=== PATIENT | male | born 1940 | race Caucasian/White ===

== ENCOUNTER → 2016-04-28 | Outpatient (CLI) | payer MEDICARE, BC ==
[2016-04-28 10:17] LABS: Blood Urea Nitrogen 31 mg/dL (9-20); Non-African American GFR(MDRD) 54 (>60 ml/min/1.73 sqM)
--- NOTE | 2016-04-28 11:31 | CT ---
EXAMINATION TYPE: CT angio abdomen DATE OF EXAM: 04/28/2016 11:13 AM COMPARISON: CTA abdominal aorta June 03, 2015 HISTORY: AAA CT DLP: 2549.9 mGycm, Automated Exposure Control for Dose Reduction was Utilized. CONTRAST: CT scan of the abdomen and pelvis is performed without oral and without and with IV Contrast, patient injected with 100 mL of Visipaque 320. Aneurysm protocol with Three-D reconstructed images created o n independent workstation and reviewed. FINDINGS: VASCULAR: There is redemonstration of aortobiiliac stent graft beginning at level of SMA extending in to the distal common iliac arteries bilaterally. [place] aneurysm to the infrarenal abdominal aorta re demonstrated measuring 5.3 x 5.4 cm on axial image 45 felt stable in size versus prior exam appearing 5.1 x 5.4 cm on image 25. Length of the aneurysm is approximately 7.5 cm. No iliac extension is note d. Post contrast images show patency of the stent graft without suspicious enhancement outside the st ent graft to suggest endoleak. There is moderate to severe calcified plaque in the internal/external iliac artery branches. No significant stenosis is seen in the external iliac artery branches through the common femoral as well as proximal superficial and deep femoral arteries with moderate calcified plaque extending through these levels slightly more prominent in the right groin. There is patent aimee iac access, SMA, and bilateral single renal arteries which have fairly moderate to severe calcified p laque redemonstrated without definitive significant stenosis seen near origins. Patent RAEANN is not isaac ntified. LUNG BASES: Some linear scarring in the left lung base remains present. There is stable 8 x 6 mm nodu le in the right lung base on axial image 12. LIVER/GB: No significant abnormality is appreciated. PANCREAS: No significant abnormality is seen. SPLEEN: Single calcification in spleen on series 3 image 15 is stable and presumed benign ADRENALS: No significant abnormality is seen. KIDNEYS: A few simple appearing cysts are redemonstrated scattered throughout both kidneys. BOWEL: No significant abnormality is seen. PROSTATE/SEMINAL VESICLES: Prostate is surgically absent with surgical clips LYMPH NODES: No greater than 1cm abdominal or pelvic lymph nodes are appreciated. OSSEOUS STRUCTURES: Extensive postsurgical change in the lumbar spine is redemonstrated. Multilevel p osterior fusion hardware as well as laminectomy defects are again seen. Dystrophic calcifications hernandez r ischial tuberosities are redemonstrated on axial image 59. OTHER: And coils ventral wall hernia repair surgery overlying the abdomen. No suspicious recurrent he rnia is seen. Surgical clips in the right groin are redemonstrated. IMPRESSION: Redemonstration of aortobiiliac stent graft that remains patent. [place] aneurysm size is felt stable. No CT evidence for endoleak.
== END | disposition home or self-care (01) ==
LOC: RADCTMAIN 09:34
PROVIDERS: ATTEND Thoracic Surgery (Cardiothoracic Vascular Surgery)
DX: I71.4 Abdominal aortic aneurysm, without rupture (principal)
CPT/HCPCS: 82565; 84520; 74175; 36415; Q9967

== ENCOUNTER → 2016-10-04 | Outpatient (CLI) | payer MEDICARE, BC ==
--- NOTE | 2016-10-04 10:56 | XR ---
EXAMINATION TYPE: XR chest 2V DATE OF EXAM: 10/04/2016 COMPARISON: Prior chest x-ray 07/11/2015 HISTORY: Rib pain, upper back and chest pain TECHNIQUE: Frontal and lateral views of the chest are obtained. FINDINGS: There is a tortuous dense aorta as on prior exam, there are atherosclerotic calcifications present. Patient is rotated. Heart size is stable, patient is rotated. No evident airspace disease, pneumothorax, or pleural effusion. Pulmonary vascularity and savita are stable. Postop changes are note d to the lumbar spine. Spondylosis noted in the thoracic spine. There may be a spinal curvature. Ribs show a stable appearance. IMPRESSION: No acute cardiopulmonary process. The patient is rotated. There is likely spinal curvatu re.
--- NOTE | 2016-10-04 12:02 | XR ---
Bilateral hips HISTORY: Bilateral hip pain 2 views of both hips submitted. No comparisons Calcification is present within the insertion of the gluteal tendon on the greater trochanter on the right. Injection granuloma are present. Marginal spurring and joint space loss is present bilaterally . Alignment is maintained. Multiple surgical clips are present, there are extensive vascular calcific ations. Bone mineralization is mildly reduced. IMPRESSION: Findings suggest osteoarthritis, there may be a component of femoral acetabular impingeme nt. Possible calcific tendinitis, consider trochanteric bursitis. Osteopenia is suspected.
== END | disposition home or self-care (01) ==
LOC: RADXRMAIN 07:50
PROVIDERS: ATTEND Family Medicine
DX: R07.81 Pleurodynia (principal); M25.551 Pain in right hip; M25.552 Pain in left hip
CPT/HCPCS: 71020; 73521

== ENCOUNTER 2017-01-10 06:05 | Day surgery (SDC) | payer MEDICARE, BC ==
[2017-01-05 09:16] VITALS: BMI 73.3
[~2017-01-10 06:05] MED LIST: LACTATED RINGERS 1,000 ML IV SCH
[2017-01-10 06:32] VITALS: RESP 16; TEMP 97.9
[2017-01-10] MEDS ORDERED: LIDOCAINE 1% 20 ML VIAL (10MG/ML) FOR IV START INTRADERMA ONE (06:39)
[2017-01-10 06:40] LABS: Glucose,Whole Blood 135 mg/dL (75-99)
--- NOTE | 2017-01-10 07:17 | P.PCN ---
Date of Procedure: 01/10/17 Preoperative Diagnosis: Bilateral sacroiliitis Postoperative Diagnosis: Same as above Procedure(s) Performed: Bilateral sacroiliac joint steroid injection under fluoroscopic guidance Anesthesia: MAC (Conscious sedation with IV fentanyl and Versed) Surgeon: Kaylee Rios Pathology: none sent Condition: stable Disposition: PACU Description of Procedure: the patient was seen and identified in the preoperative holding area, risks and benefits and alternative of the procedure and possible complications discussed with the patient, patient signed the consent. an IV was started, and vital signs were monitored and were stable throughout the procedure, patient was placed in the prone position or table and the lumbosacral area was prepped and draped with a sterile fashion, vital signs were closely monitored during the procedure.The right sacroiliac joint was identified on the AP view of fluoroscopy then the C-arm was tilted to the left oblique position to superimpose the anterior and posterior joint lines on each other and to have a unified joint line with the target point at the inferior one third of this line. I used 22-gauge 3-1/2 inch Quincke spinal needle for this procedure and after getting into the sacroiliac joint I injected 20 mg of Kenalog +2.5 MLS of Marcaine 0.5%. The same procedure was repeated on the left side by tilting the C-arm to the right oblique position this time. At the target point was also at the inferior one third of this unified joint line. Using a 22-gauge 3-1/2 inch Quincke spinal needle I injected 20 mg of Kenalog plus 2.5 MLS of Marcaine 0.5% . Patient tolerated the procedure well without any complication, The patient returned to supine position after the back was cleaned and a Band- Aid applied, the patient transported to recovery room in stable condition and he was monitored for 30 minutes before he was discharged home and then patient was reexamined before going home and patient was discharged in stable condition and patient will follow up with the pain clinic in a few weeks
[2017-01-10] MEDS ORDERED: IV FLUID CONTINUATION 1,000 ML IV ONE (07:27)
[2017-01-10 07:45] VITALS: BP 105/70; PULSE 73
--- NOTE | 2017-01-10 08:47 | FL ---
EXAMINATION TYPE: FL guided pain mgmt statistic DATE OF EXAM: 01/10/2017 HISTORY: Flouroscopy time 7 seconds of fluoroscopy provided. IMPRESSION: 1. Fluoroscopy time.
== END 2017-01-10 08:19 | disposition home or self-care (01) ==
LOC: ORPAIN 06:05
PROVIDERS: ATTEND Anesthesiology
DX: M46.1 Sacroiliitis, not elsewhere classified (principal); I10 Essential (primary) hypertension; E11.9 Type 2 diabetes mellitus without complications; C61 Malignant neoplasm of prostate; Z86.73 Personal history of transient ischemic attack (TIA), and cerebral infarction without residual deficits
CPT/HCPCS: G0260; J2250; J3301; J3010

== ENCOUNTER → 2017-03-01 | Outpatient (CLI) | payer MEDICARE, BC ==
--- NOTE | 2017-03-01 14:46 | P.PN ---
Progress Note - Text Progress Note Date: 03/01/17 Patient returns for followup for chronic back pain with radiation to LLE > RLE. Patient recently underwent SIJ injections x 2with good relief on right side but still has pain when standing for long periods or lying on his left side Patient does not take any regular medications for pain (only rare tramadol). Today, pt denies new-onset weakness, bowel/bladder incontinence, or any other signs or symptoms of cauda equina syndrome. There are no signs of acute intoxication, and no indications of medication diversion or overuse. In addition to above, 13-point review of systems is also negative for chest pain , shortness of breath, changes in vision, changes in hearing, new onset weakness , abdominal pain, diarrhea, extreme fatigue, malaise, fever, skin changes, homicidal or suicidal ideation, or bowel or bladder incontinence. Vital Signs: Reviewed in EMR Gen: WDWN, AAOx3, NAD HEENT: NCAT, EOMI, hearing grossly normal Pulm: resp unlabored Abd: soft, NT, ND Neck: supple, trachea midline ROM in flexion lumbar spine: reduced ROM in extension lumbar spine: reduced Lumbar paravertebral tenderness: + Facet loading: + bilateral SI joint tenderness: + R > L Manuel's test: + R > L Neuro: CN II-XII grossly intact, muscle strength lower extremities PRESERVED Imaging: Reviewed in EMR Assessment: 1. SIJ dysfunction 2. lumbar spondylosis 3. chronic pain syndrome Plan: 1. Explanation: Opioid and psychological risk scores were reviewed. Diagnoses , prognoses, and multiple treatment options including but not limited to physical therapy, interventional therapies, adjuvant medical therapies, narcotic medication therapies, and surgery were discussed with the patient and all questions were answered to the patient's satisfaction. 2. Opioid agreement: no opioids prescribed today 3. Counseling: The patient was counseled extensively on BODY MASS INDEX, EXERCISE. Specifically, the patient was instructed regarding the importance of smoking cessation, weight control, and exercise in the context of both chronic pain and overall health. 4. Procedures: bilateral SIJ injection #3, consider RFA in future (patient is concerned about insurance coverage) 5. Consultations: None 6. Investigations: None 7. Medications: none prescribed 8. Disposition: f/u for procedure as scheduled PQRS measures: 1-Patient's medications are documented in the chart. 2-Tobacco use is negative 3-Patient has not had a pneumococcal vaccine. 4-Advanced care planning discussed, patient unable to give. 5-Opioid contract NOT signed with the patient. 6-Pain positive, follow-up visit or procedure scheduled 7-Patient's blood pressure measured and documented, and patient will follow up with the primary care due to hypertension. 8-Patient's weight was measured, and body mass index ABOVE the normal limits, and counseling was done. Patient instructed to follow up with PCP. 9-Patient WAS NOT identified as an unhealthy alcohol user.
== END | disposition home or self-care (01) ==
LOC: PNWHC3 14:07
PROVIDERS: ATTEND Anesthesiology
DX: G89.4 Chronic pain syndrome (principal); M47.816 Spondylosis without myelopathy or radiculopathy, lumbar region; M53.3 Sacrococcygeal disorders, not elsewhere classified
CPT/HCPCS: 99211

== ENCOUNTER 2017-03-29 05:54 | Day surgery (SDC) | payer MEDICARE, BC ==
[2017-03-22 11:08] VITALS: BMI 34.3
[2017-03-29 07:23] VITALS: PULSE 81; RESP 16; TEMP 96.7
[2017-03-29] MEDS ORDERED: LACTATED RINGERS 1,000 ML IV ONE (07:33)
[2017-03-29 07:34] LABS: Glucose,Whole Blood 133 mg/dL (75-99)
[2017-03-29] MEDS ORDERED: LIDOCAINE 1% 20 ML VIAL (10MG/ML) FOR IV START INTRADERMA ONE (07:34)
[2017-03-29] MEDS ORDERED: LACTATED RINGERS 1,000 ML IV SCH (07:45)
--- NOTE | 2017-03-29 08:04 | P.PCN ---
Date of Procedure: 03/29/17 Surgeon: Hugo Allan Pathology: none sent Condition: stable Disposition: PACU Description of Procedure: PREOPERATIVE DIAGNOSIS: 1-Bilateral sacroiliitis. 2 Lumbar DDD POSTOPERATIVE DIAGNOSIS:. 1-Bilateral sacroiliitis. 2 Lumbar DDD PROCEDURES: Bilateral Sacroiliac joint steroid injection with fluoroscopic guidance ANESTHESIA: Local with 1% lidocaine; conscious sedation EBL: Minimal. PROCEDURE INDICATIONS: This patient with a history of low back pain secondary to sacroiliitis and lumbar DDD unresponsive to conservative management. No use of blood thinners except ASA 325 last used yesterday; third SIJ injection today after relief for 1 month from previous two procedures. PROCEDURE DESCRIPTION: The patient was seen and identified in the preoperative area. Risks, benefits, complications, and alternatives were discussed with the patient (including but not limited to incomplete pain relief, bleeding, infection, nerve damage, and allergies to medications), the patient agreed to proceed with the procedure and signed the consent after all questions were answered. Patient was taken to the OR and time out was completed to verify proper patient , position, laterality of pain, and allergies. Pt was placed in the prone position and a pillow was placed under the abdomen to reduce lumbar lordosis. The lumbosacral area was prepped and draped in the usual sterile fashion. Critical pause was taken. Vital signs were closely monitored during the procedure. The fluoroscopic camera was placed in contralateral oblique view and right sacroiliiac joint lower pole was identified. After local infiltration with 1% lidocaine 2 ml, Subsequently, a 22-gauge 3.5 inch spinal needle was introduced into the posteroinferior aspect of the right sacroiliac joint under direct fluoroscopic visualization. Subsequently, 3 ml of a solution of a total of 6 ml solution containing total 5 mL of 0.5% preservative-free bupivicaine mixed with 40 mg of Kenalog was injected after negative aspiration for CSF, blood, and air and negative for paresthesia. The entire procedure was repeated on the left side as above. Needle was withdrawn intact. Skin was cleansed, and bandages were applied. COMPLICATIONS: None. COMMENTS: DISPOSITION / PLANS: The patient was placed in a supine position and transferred to the recovery area in a stable condition for observation and was discharged from the recovery room after meeting discharge criteria. Home discharge instructions given to the patient by the staff. The patient was reexamined prior to discharge. The patient will schedule a follow up in clinic in 4-6 weeks.
[2017-03-29] MEDS ORDERED: IV FLUID CONTINUATION 1,000 ML IV ONE (08:12)
[2017-03-29 08:29] VITALS: BP 158/74
--- NOTE | 2017-03-29 08:37 | FL ---
Fluoroscopy HISTORY: Pain 9 seconds fluoroscopy time supplied to the referring clinician. 2 intraoperative C-arm images docume nt the procedure. See dictated report from anesthesia.
== END 2017-03-29 08:48 | disposition home or self-care (01) ==
LOC: ORPAIN 05:54
PROVIDERS: ATTEND Anesthesiology
DX: M46.1 Sacroiliitis, not elsewhere classified (principal); M51.16 Intervertebral disc disorders with radiculopathy, lumbar region; Z86.73 Personal history of transient ischemic attack (TIA), and cerebral infarction without residual deficits; G89.4 Chronic pain syndrome
CPT/HCPCS: J2250; J1030; Q9965; J3010; G0260

== ENCOUNTER → 2017-04-14 | Outpatient (CLI) | payer MEDICARE, BC ==
[2017-04-14 14:33] VITALS: BP 113/68; PULSE 88; RESP 16
--- NOTE | 2017-04-14 17:53 | P.PN ---
Subjective Progress Note Date: 04/14/17 This is [age] years old male with chronic history of severe low back pain, he is diagnosed with bilateral sacroiliitis, and lumbar degenerative disc disease, patient had a history of lumbar laminectomy surgery several years ago, recently we have done bilateral sacroiliac joint steroid injections 2, and he reported that he had 0 benefit after the injection, and he is here today to discuss the results of the procedures , he denies any motor or sensory deficit he denies any fever or night sweats and there is no change in the bowel movement or urination, his VAS is 4-6/10 and increases with activity Objective - Vital Signs Vital signs: Vital Signs Temp Pulse 88 04/14/17 14:24 Resp 16 04/14/17 14:24 BP 113/68 04/14/17 14:24 Pulse Ox Intake & Output 04/13/17 04/14/17 04/14/17 18:59 06:59 18:59 Weight 92.533 kg - Exam Physical Examinations : 1-Constitutiona : Cooperative , not in acute distress . 2-HEENT : nech ; supple , no Lymphadenopathy , normal thyroid size . eyes : no ptosis , no icterus, no photophobia . ENT : normal of hearing , normal oropharynx , no Thrush . 3- Respiratory : Chest clear to auscultations Bilaterally , no wheezing , no Rhonchi . 4- Cardiovascular : regular rate and rhythem , S1 , S2 , no S3 , no S4. 5- Gastrointestinal : abdomen soft no tenderness , bowel sounds positive all four quadrents , no organomegally . 6- Genitourinary : Defferred . 7- neurologic : Cranial nerve II to XII intact , no focal neurological deffecit . 8-psychatric : alert , oriented X 3 , appropriate affect , intact judgment and insight . 9-Lymphatic : no Lymphadenopathy . 10- musculoskeltal : , Lumber spine = normal moter stegnth lower extremities ,thigh and legs .5/5 deep tendon reflexes : normal Knee Jerk , normal ankle Jerk . lumber facet Loading Test positive strait leg raising test positive at 30 degree Right , positve at 30 degree Left Fabere test positive Right and positive Left Sever tenderness over the Sacroiliac joint on the Right , and Left side Assessment and Plan Plan: Assessment and plan=1-bilateral sacroiliitis . 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 3-lumbar spondylosis. Patient had no benefit from the sacroiliac joint steroid injections, he will not be a good candidate to have radiofrequency ablation of the sacroiliac joint , discussed with the patient the option of doing a caudal epidural steroid injection with lysis of epidural adhesions, versus medication management, patient preferred to try medication management, prescription for Mobic 7.5 mg twice a day, and Ultram 50 mg daily when necessary, Time with Patient: Less than 30
== END | disposition home or self-care (01) ==
LOC: PNWHC3 13:06
PROVIDERS: ATTEND Specialist
DX: G89.29 Other chronic pain (principal); M54.5 Low back pain; M96.1 Postlaminectomy syndrome, not elsewhere classified; M51.36 Other intervertebral disc degeneration, lumbar region; M47.816 Spondylosis without myelopathy or radiculopathy, lumbar region; M46.1 Sacroiliitis, not elsewhere classified; Z79.891 Long term (current) use of opiate analgesic; Z79.1 Long term (current) use of non-steroidal anti-inflammatories (NSAID)
CPT/HCPCS: 99211

== ENCOUNTER → 2017-05-12 | Outpatient (CLI) | payer MEDICARE, BC ==
[2017-05-12 13:22] VITALS: BP 127/77; PULSE 84; RESP 16; TEMP 97.8
--- NOTE | 2017-05-12 13:48 | P.PN ---
Progress Note - Text Progress Note Date: 05/12/17 Patient returns for followup for chronic back pain with radiation to LLE > RLE. Patient has undergone numerous interventions with our facility and has no more than one week's relief from all of them. He was prescribed tramadol and meloxicam at last visit but does not know if they are helping at all, although tramadol did help him in the past. Today, pt denies new-onset weakness, bowel/ bladder incontinence, or any other signs or symptoms of cauda equina syndrome. There are no signs of acute intoxication, and no indications of medication diversion or overuse. In addition to above, 13-point review of systems is also negative for chest pain , shortness of breath, changes in vision, changes in hearing, new onset weakness , abdominal pain, diarrhea, extreme fatigue, malaise, fever, skin changes, homicidal or suicidal ideation, or bowel or bladder incontinence. Vital Signs: Reviewed in EMR Gen: WDWN, AAOx3, NAD HEENT: NCAT, EOMI, hearing grossly normal Pulm: resp unlabored Abd: soft, NT, ND Neck: supple, trachea midline ROM in flexion lumbar spine: reduced ROM in extension lumbar spine: reduced Lumbar paravertebral tenderness: + Facet loading: + bilateral SI joint tenderness: + R > L Manuel's test: + R > L Neuro: CN II-XII grossly intact, muscle strength lower extremities PRESERVED Imaging: Reviewed in EMR Assessment: 1. SIJ dysfunction 2. lumbar spondylosis 3. chronic pain syndrome Plan: 1. Explanation: Opioid and psychological risk scores were reviewed. Diagnoses , prognoses, and multiple treatment options including but not limited to physical therapy, interventional therapies, adjuvant medical therapies, narcotic medication therapies, and surgery were discussed with the patient and all questions were answered to the patient's satisfaction. 2. Opioid agreement: no opioids prescribed today 3. Counseling: The patient was counseled extensively on BODY MASS INDEX, EXERCISE. Specifically, the patient was instructed regarding the importance of smoking cessation, weight control, and exercise in the context of both chronic pain and overall health. 4. Procedures: none 5. Consultations: None 6. Investigations: None 7. Medications: none prescribed 8. Disposition: Patient has had limited relief with all procedures thus far and does not want any stronger opioids. He will return as needed.
== END | disposition home or self-care (01) ==
LOC: PNWHC3 12:40
PROVIDERS: ATTEND Anesthesiology
DX: G89.4 Chronic pain syndrome (principal); M47.816 Spondylosis without myelopathy or radiculopathy, lumbar region; M53.3 Sacrococcygeal disorders, not elsewhere classified; Z79.891 Long term (current) use of opiate analgesic; Z79.1 Long term (current) use of non-steroidal anti-inflammatories (NSAID)
CPT/HCPCS: 99211

== ENCOUNTER → 2017-05-25 | Outpatient (CLI) | payer MEDICARE, BC ==
--- NOTE | 2017-05-26 06:06 | CT ---
EXAMINATION TYPE: CT ChestAbdPelvis wo con DATE OF EXAM: 05/25/2017 COMPARISON: CT chest August 07, 2014. CTA abdomen November 08, 2016. HISTORY: AB pain, hx prostate cancer CT DLP: 1629 mGycm. Automated Exposure Control for Dose Reduction was Utilized. TECHNIQUE: CT scan of the thorax, abdomen and pelvis is performed with oral but without IV contrast due to dimin ished renal function. FINDINGS: Within limitations of noncontrast study, following observations are made. LUNGS: There is stable 8 x 5 mm right basilar nodule axial image 51. There is some scattered linear s carring and/or atelectasis in both bases near diaphragm. There is redemonstration of azygos lobe/fiss ure. There is mild underlying emphysematous change. No new suspicious nodule or mass is present. No p leural effusion or pneumothorax is seen bilaterally. MEDIASTINUM: There are no greater than 1 cm hilar or mediastinal lymph nodes. No cardiomegaly or pe ricardial effusion is seen. OTHER: No additional significant abnormality is seen. LIVER/GB: Gallbladder is not visualized and presumed surgically absent. PANCREAS: No significant abnormality is seen. SPLEEN: Few calcifications inferiorly and spleen are redemonstrated. ADRENALS: No significant abnormality is seen. KIDNEYS: Superior to right kidney there is stable 2.7 cm hyperdense lesion possible exophytic protein aceous cyst. There is larger 3.9 cm simple appearing cyst medially mid pole level right kidney. BOWEL: Oral contrast reaches level of cecum. There is no suspicious small or large bowel dilatation GENITAL ORGANS: Prostate gland is suspected surgically absent with pelvic clips noted. LYMPH NODES: No greater than 1cm abdominal or pelvic lymph nodes are appreciated. OSSEOUS STRUCTURES: S-shaped scoliosis is present. Postsurgical change in the lumbar spine is redemon strated with fusion hardware upper and lower lumbar levels. There is posterior decompression redemons trated. OTHER: Numerous surgical coils from ventral wall hernia repair surgery are redemonstrated. No recurre nt hernia is seen. There is aortobiiliac stent graft redemonstrated throughout aneurysm measuring 5.3 x 5.2 cm axial benjamin ge 84 not significantly changed from prior. IMPRESSION: No significant new or acute finding is seen to account for patient's symptoms of acute ab dominal pain. No new suspicious mass or adenopathy is seen to suggest metastatic malignancy.
== END | disposition home or self-care (01) ==
LOC: RADCTMAIN 09:48
PROVIDERS: ATTEND Family Medicine
DX: R10.9 Unspecified abdominal pain (principal); Z85.46 Personal history of malignant neoplasm of prostate
CPT/HCPCS: 71250; 74176; 82565; 84520

== ENCOUNTER → 2017-08-26 | Outpatient (CLI) | payer MEDICARE, BC ==
--- NOTE | 2017-08-26 13:19 | XR ---
EXAMINATION TYPE: XR chest 2V DATE OF EXAM: 08/26/2017 COMPARISON: October 04, 2016 HISTORY: Shortness of breath TECHNIQUE: Frontal and lateral views of the chest are obtained. FINDINGS: Scattered senescent parenchymal changes noted. Hyperinflation compatible with COPD. There is a new infiltrate identified in the region of the right middle lobe medial segment. No additi onal infiltrates seen at this time. Right upper lobe calcified granulomas. Heart size is stable. Mediastinal structures are stable and grossly unremarkable. No evidence for hilar prominence. Degenerative changes dorsal spine. Segmental sclerosis of the posterior left rib 7. IMPRESSION: 1. There is a new infiltrate identified in the region of the right middle lobe medial segment. No add itional infiltrates seen at this time.
== END | disposition home or self-care (01) ==
LOC: RADXRMAIN 09:32
PROVIDERS: ATTEND Family Medicine
DX: R06.02 Shortness of breath (principal); R91.8 Other nonspecific abnormal finding of lung field
CPT/HCPCS: 71046

== ENCOUNTER 2017-08-29 14:54 | Emergency (ER) | payer MEDICARE, BC ==
[2017-08-29 17:52] LABS: Basophils % (A) 0 %; Eosinophils # (A) 0.1 k/uL (0-0.7); Eosinophils % (A) 1 %; HCT 36.3 % (39.0-53.0); HGB 11.5 gm/dL (13.0-17.5); Lymphocytes # (A) 0.8 k/uL (1.0-4.8); Lymphocytes % (A) 4 %; MCH 30.8 pg (25.0-35.0); MCHC 31.7 g/dL (31.0-37.0); MCV 97.2 fL (80.0-100.0); Mean Platelet Volume 7.2; Monocytes % (A) 5 %; Neutrophils # (A) 17.8 k/uL (1.3-7.7); Neutrophils % (A) 89 %; Platelet Count 515 k/uL (150-450); RBC 3.73 m/uL (4.30-5.90); RDW 13.7 % (11.5-15.5); WBC 20.1 k/uL (3.8-10.6)
[2017-08-29 17:58] LABS: Albumin 3.8 g/dL (3.5-5.0); Calcium 10.6 mg/dL (8.4-10.2); Potassium 5.2 mmol/L (3.5-5.1); Total Bilirubin 0.4 mg/dL (0.2-1.3); Total Protein 6.6 g/dL (6.3-8.2)
[2017-08-29 18:09] LABS: Creatine Kinase 72 U/L (55-170)
[2017-08-29 18:21] LABS: Creatine Kinase MB 1.9 ng/mL (0.0-2.4); Troponin I <0.012 ng/mL (0.000-0.034)
[2017-08-29] MEDS ORDERED: IPRATROPIUM-ALBUTEROL 3 ML NEB INHALATION STA (18:46)
--- NOTE | 2017-08-29 18:49 | ED ---
General Adult HPI - General Chief complaint: Shortness of Breath Stated complaint: Sob Time Seen by Provider: 08/29/17 18:36 Source: patient, family, RN notes reviewed Mode of arrival: wheelchair Limitations: no limitations - History of Present Illness Initial comments: Patient is a pleasant 77-year-old male presenting to the emergency department with difficulty breathing. Symptoms have been present for around a week. Patient did have x-ray done on Tuesday and diagnosed with pneumonia. Patient does have cough. Patient does have dyspnea. Patient also complains of sciatica pain on the left side which is chronic for him. No weakness. Patient also is chronic lower back pain. - Related Data Home Medications Medication Instructions Recorded Confirmed Atenolol [Tenormin] 25 mg PO BID 10/06/13 08/29/17 Benazepril HCl 20 mg PO BID 10/06/13 08/29/17 amLODIPine [Norvasc] 5 mg PO BID 10/06/13 08/29/17 metFORMIN HCL 1,000 mg PO HS 10/06/13 08/29/17 Atorvastatin [Lipitor] 20 mg PO HS 04/15/14 08/29/17 Vitamin B Complex 1 cap PO DAILY 05/02/14 08/29/17 Ascorbic Acid [Vitamin C] 1,000 mg PO DAILY 10/13/15 08/29/17 Cholecalciferol [Vitamin D3] 1,000 unit PO DAILY 10/13/15 08/29/17 Indapamide 2.5 mg PO DAILY 10/13/15 08/29/17 Omeprazole [PriLOSEC] 20 mg PO BID 10/13/15 08/29/17 Ubidecarenone [Co Q-10] 100 mg PO DAILY 10/13/15 08/29/17 Calcitonin Nasal [Fortical 1 spray EA NOSTRIL DAILY 10/22/15 08/29/17 (Miacalcin)] Psyllium Husk [Metamucil] 0.4 gm PO DAILY PRN 03/22/17 08/29/17 Calcium Carbonate [Calcium] 600 mg PO DAILY 08/29/17 08/29/17 Ferrous Sulfate 134mg 134 mg PO DAILY 08/29/17 08/29/17 Glucosam/Angel Luis-Msm1/C/Emeka/Bosw 1 tab PO DAILY 08/29/17 08/29/17 [Kistjspoqwj-Fudiamqrpnn-CZR Tb] Previous Rx's Medication Instructions Recorded Aspirin 325 mg PO DAILY #30 tab 07/15/15 Azithromycin [Zithromax Z-pack] 250 mg PO DIRECTED #6 tab 08/29/17 predniSONE 20 mg PO BID #8 tab 08/29/17 Allergies Allergy/AdvReac Type Severity Reaction Status Date / Time No Known Allergies Allergy Verified 08/29/17 19:19 Review of Systems ROS Statement: Those systems with pertinent positive or pertinent negative responses have been documented in the HPI. ROS Other: All systems not noted in ROS Statement are negative. 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,Hx prostate cancer;Chronic back pain; Chronic anemia, peptic ulcer disease, CVA in June 2015 and MRI of the brain showed increased signal within the cortex of the right frontal and frontoparietal lobes consistent with infarcts., aortic aneurysm with previous insertion of an aortic stent, carotid artery stenosis, History of Any Multi-Drug Resistant Organisms: MRSA Date of last positivie culture/infection: 2011 MDRO Source:: abdominal incision Past Surgical History: Back Surgery, Bladder Surgery, Cholecystectomy, Hernia Repair, Prostate Surgery Additional Past Surgical History / Comment(s): Prostatectomy, bladder suspension surgery, and the vascular stenting of an aortic aneurysm, hemorrhoidectomy, bilateral cataract surgery, back surgery X4 (516 LAMENECTOMY) Past Anesthesia/Blood Transfusion Reactions: No Reported Reaction Past Psychological History: No Psychological Hx Reported Smoking Status: Former smoker Past Alcohol Use History: None Reported Past Drug Use History: None Reported - Past Family History Brother(s) Family Medical History: CVA/TIA Son(s) Family Medical History: No Reported History Father Family Medical History: Cancer Additional Family Medical History / Comment(s): BRAIN Mother Family Medical History: Cancer Additional Family Medical History / Comment(s): "BLOOD CANCER" General Exam Limitations: no limitations General appearance: alert, in no apparent distress Head exam: Present: atraumatic Eye exam: Present: normal appearance, PERRL ENT exam: Present: normal oropharynx Neck exam: Present: normal inspection Respiratory exam: Present: wheezes, decreased breath sounds Cardiovascular Exam: Present: regular rate, normal rhythm GI/Abdominal exam: Present: soft. Absent: tenderness Extremities exam: Present: normal inspection. Absent: pedal edema, calf tenderness Neurological exam: Present: alert. Absent: motor sensory deficit Expanded Sensory exam: Lower Extremity Light Touch: Normal Motor strength exam: RLE: 5, LLE: 5 Psychiatric exam: Present: normal affect, normal mood Skin exam: Present: normal color Course Vital Signs 08/29/17 08/29/17 08/29/17 16:06 18:40 19:54 Temperature 98.4 F Pulse Rate 89 88 Respiratory 18 24 Rate Blood Pressure 123/87 O2 Sat by Pulse 95 Oximetry 08/29/17 08/29/17 19:55 20:20 Temperature 98.4 F Pulse Rate 87 88 Respiratory 18 Rate Blood Pressure 165/79 O2 Sat by Pulse 95 Oximetry Medical Decision Making - Medical Decision Making Patient reevaluated and resting comfortably in bed. Lung sounds have improved and now only mild wheezing. Patient denies any dyspnea at this time. Patient does request discharge. Patient still does have some of his chronic back pain present. Patient states she does not believe he was placed on steroids or antibiotics. was called who agrees with this. Patient states he did receive 2 shots and his doctor's office recently. Patient is unclear if they were antibiotic or steroid shots. Patient will be prescribed both antibiotics and steroids at this time and recommended close follow-up with primary care physician. Patient advised to return if worsening symptoms - Lab Data Result diagrams: 08/29/17 17:32 08/29/17 17:32 Lab Results 08/29/17 08/29/17 08/29/17 Range/Units 17:32 17:32 17:32 WBC 20.1 H (3.8-10.6) k/uL RBC 3.73 L (4.30-5.90) m/uL Hgb 11.5 L (13.0-17.5) gm/dL Hct 36.3 L (39.0-53.0) % MCV 97.2 (80.0-100.0) fL MCH 30.8 (25.0-35.0) pg MCHC 31.7 (31.0-37.0) g/dL RDW 13.7 (11.5-15.5) % Plt Count 515 H (150-450) k/uL Neutrophils % 89 % Lymphocytes % 4 % Monocytes % 5 % Eosinophils % 1 % Basophils % 0 % Neutrophils # 17.8 H (1.3-7.7) k/uL Lymphocytes # 0.8 L (1.0-4.8) k/uL Monocytes # 1.0 (0-1.0) k/uL Eosinophils # 0.1 (0-0.7) k/uL Basophils # 0.0 (0-0.2) k/uL Sodium 141 (137-145) mmol/L Potassium 5.2 H (3.5-5.1) mmol/L Chloride 110 H (98-107) mmol/L Carbon Dioxide 16 L (22-30) mmol/L Anion Gap 15 mmol/L BUN 55 H (9-20) mg/dL Creatinine 1.50 H (0.66-1.25) mg/dL Est GFR (CKD-EPI)AfAm 52 (>60 ml/min/1.73 sqM) Est GFR (CKD-EPI)NonAf 45 (>60 ml/min/1.73 sqM) Glucose 150 H (74-99) mg/dL Plasma Lactic Acid Mika (0.7-2.0) mmol/L Calcium 10.6 H (8.4-10.2) mg/dL Total Bilirubin 0.4 (0.2-1.3) mg/dL AST 47 (17-59) U/L ALT 59 (21-72) U/L Alkaline Phosphatase 180 H (38-126) U/L Total Creatine Kinase 72 (55-170) U/L CK-MB (CK-2) 1.9 (0.0-2.4) ng/mL CK-MB (CK-2) Rel Index 2.6 Troponin I <0.012 (0.000-0.034) ng/mL Total Protein 6.6 (6.3-8.2) g/dL Albumin 3.8 (3.5-5.0) g/dL 07/16/18 Range/Units 17:32 WBC (3.8-10.6) k/uL RBC (4.30-5.90) m/uL Hgb (13.0-17.5) gm/dL Hct (39.0-53.0) % MCV (80.0-100.0) fL MCH (25.0-35.0) pg MCHC (31.0-37.0) g/dL RDW (11.5-15.5) % Plt Count (150-450) k/uL Neutrophils % % Lymphocytes % % Monocytes % % Eosinophils % % Basophils % % Neutrophils # (1.3-7.7) k/uL Lymphocytes # (1.0-4.8) k/uL Monocytes # (0-1.0) k/uL Eosinophils # (0-0.7) k/uL Basophils # (0-0.2) k/uL Sodium (137-145) mmol/L Potassium (3.5-5.1) mmol/L Chloride (98-107) mmol/L Carbon Dioxide (22-30) mmol/L Anion Gap mmol/L BUN (9-20) mg/dL Creatinine (0.66-1.25) mg/dL Est GFR (CKD-EPI)AfAm (>60 ml/min/1.73 sqM) Est GFR (CKD-EPI)NonAf (>60 ml/min/1.73 sqM) Glucose (74-99) mg/dL Plasma Lactic Acid Mika 1.0 (0.7-2.0) mmol/L Calcium (8.4-10.2) mg/dL Total Bilirubin (0.2-1.3) mg/dL AST (17-59) U/L ALT (21-72) U/L Alkaline Phosphatase (38-126) U/L Total Creatine Kinase (55-170) U/L CK-MB (CK-2) (0.0-2.4) ng/mL CK-MB (CK-2) Rel Index Troponin I (0.000-0.034) ng/mL Total Protein (6.3-8.2) g/dL Albumin (3.5-5.0) g/dL - Radiology Data Radiology results: image reviewed (Chest x-ray shows no acute process. Improvement of recent infiltrate.) Disposition Clinical Impression: Acute exacerbation of chronic obstructive airways disease Disposition: HOME SELF-CARE Condition: Stable Instructions: COPD (Chronic Obstructive Pulmonary Disease) (ED) Additional Instructions: Please follow-up with primary care physician tomorrow. Consider referral to pain center. Return for fevers, difficulty breathing, worsening or changing symptoms or other concerns. Prescriptions: Azithromycin [Zithromax Z-pack] 250 mg PO DIRECTED #6 tab predniSONE 20 mg PO BID #8 tab Is patient prescribed a controlled substance at d/c from ED?: No Referrals: Yonatan Judge DO [Primary Care Provider] - 1-2 days Time of Disposition: 20:59
[2017-08-29] MEDS ORDERED: MORPHINE SULFATE 2 MG/ML SYRINGE IVP STA (19:23)
--- NOTE | 2017-08-29 19:30 | XR ---
EXAMINATION TYPE: XR chest 2V DATE OF EXAM: 08/29/2017 COMPARISON: 08/26/2017 HISTORY: Cough TECHNIQUE: Frontal and lateral views of the chest are obtained. FINDINGS: Heart size is normal. Lungs are clear of consolidation. Thoracic aorta is atheromatous. Th ere is evidence of aneurysm of the aortic arch. There is no pleural effusion. There is mild pleural t hickening at the right lung apex. IMPRESSION: No active cardiopulmonary disease. There is significant clearing of the right lower lobe and right middle lobe pulmonary infiltrate compared to last exam.
[2017-08-29 19:56] VITALS: RESP 18
[2017-08-29] MEDS ORDERED: HYDROcodone/APAP 5-325MG 1 EACH TAB PO STA (20:54)
[2017-08-29 21:42] VITALS: BP 142/71; PULSE 104; TEMP 97.7
== END 2017-08-29 21:46 | disposition home or self-care (01) ==
LOC: EC 14:54
DX: J44.1 Chronic obstructive pulmonary disease with (acute) exacerbation (principal); G89.29 Other chronic pain; M54.42 Lumbago with sciatica, left side; E11.9 Type 2 diabetes mellitus without complications; K21.9 Gastro-esophageal reflux disease without esophagitis; E78.5 Hyperlipidemia, unspecified; I10 Essential (primary) hypertension; M19.90 Unspecified osteoarthritis, unspecified site; D64.9 Anemia, unspecified; Z85.46 Personal history of malignant neoplasm of prostate; Z86.14 Personal history of Methicillin resistant Staphylococcus aureus infection; Z86.73 Personal history of transient ischemic attack (TIA), and cerebral infarction without residual deficits; Z87.11 Personal history of peptic ulcer disease; Z79.84 Long term (current) use of oral hypoglycemic drugs; Z79.899 Other long term (current) drug therapy; Z87.891 Personal history of nicotine dependence
CPT/HCPCS: 99285; 96374; 36415; 94640; 93005; 80053; 82550; 82553; 83605; 84484; 85025; 87040; 71046; J2270

== ENCOUNTER → 2017-09-22 | Outpatient (CLI) | payer MEDICARE, BC ==
[2017-09-22 11:58] VITALS: BP 129/79; PULSE 81; RESP 16
--- NOTE | 2017-09-22 12:43 | P.PN ---
Progress Note - Text Progress Note Date: 09/07/17 Progress Note - Text Progress Note Date: 05/12/17 Patient returns for followup for chronic back pain with radiation to LLE > RLE. Patient has undergone numerous interventions with our facility and has no more than one week's relief from all of them. He was prescribed tramadol and meloxicam at last visit but does not know if they are helping at all, although tramadol did help him in the past. Today, pt denies new-onset weakness, bowel/ bladder incontinence, or any other signs or symptoms of cauda equina syndrome. There are no signs of acute intoxication, and no indications of medication diversion or overuse. In addition to above, 13-point review of systems is also negative for chest pain , shortness of breath, changes in vision, changes in hearing, new onset weakness , abdominal pain, diarrhea, extreme fatigue, malaise, fever, skin changes, homicidal or suicidal ideation, or bowel or bladder incontinence. Vital Signs: Reviewed in EMR Gen: WDWN, AAOx3, NAD HEENT: NCAT, EOMI, hearing grossly normal Pulm: resp unlabored Abd: soft, NT, ND Neck: supple, trachea midline ROM in flexion lumbar spine: reduced ROM in extension lumbar spine: reduced Lumbar paravertebral tenderness: + Facet loading: + bilateral SI joint tenderness: + R > L Manuel's test: + R > L Neuro: CN II-XII grossly intact, muscle strength lower extremities PRESERVED Imaging: Reviewed in EMR Assessment: 1. SIJ dysfunction 2. lumbar spondylosis 3. chronic pain syndrome Plan: 1. Explanation: Opioid and psychological risk scores were reviewed. Diagnoses , prognoses, and multiple treatment options including but not limited to physical therapy, interventional therapies, adjuvant medical therapies, narcotic medication therapies, and surgery were discussed with the patient and all questions were answered to the patient's satisfaction. 2. Opioid agreement: no opioids prescribed today 3. Counseling: The patient was counseled extensively on BODY MASS INDEX, EXERCISE. Specifically, the patient was instructed regarding the importance of smoking cessation, weight control, and exercise in the context of both chronic pain and overall health. 4. Procedures: none 5. Consultations: None 6. Investigations: None 7. Medications: none prescribed 8. Disposition: Patient has had limited relief with all procedures thus far and does not want any stronger opioids. He will return as needed.
--- NOTE | 2017-09-22 12:57 | P.PN ---
Progress Note - Text Progress Note Date: 09/22/17 Progress Note - Text Progress Note Date: 09/22/2017 Patient returns for followup for chronic back pain with radiation to LLE > RLE. Patient has had a previous lumbar fusion, and is having multiple SI joint injections. He's had relief from SI joint injections however for very short duration of less than 24 hour. He states that the relief that he gets is greater than 80%. I discussed with him doing a left radio frequency ablation of L5, S1 to S3 medial branches. I discussed the risks and benefits with the patient and the patient is agreeable to proceeding. Patient states that because of his left SI joint pain he is unable to perform typical activities of daily living, he is unable to grocery shop, unable to clean his home, and requires excessive assistance because of pain. Patient is adamant that he does not want any opiates, or opiate derivatives. He has tried tramadol in the past and does not want to continue. Today, pt denies new-onset weakness, bowel/ bladder incontinence, or any other signs or symptoms of cauda equina syndrome. In addition to above, 13-point review of systems is also negative for chest pain , shortness of breath, changes in vision, changes in hearing, new onset weakness , abdominal pain, diarrhea, extreme fatigue, malaise, fever, skin changes, homicidal or suicidal ideation, or bowel or bladder incontinence. Vital Signs: Reviewed in EMR Gen: WDWN, AAOx3, NAD HEENT: NCAT, EOMI, hearing grossly normal Pulm: resp unlabored Abd: soft, NT, ND Neck: supple, trachea midline ROM in flexion lumbar spine: reduced ROM in extension lumbar spine: reduced Lumbar paravertebral tenderness: + Facet loading: + bilateral SI joint tenderness: + L>R Manuel's test: + L > R Neuro: CN II-XII grossly intact, muscle strength lower extremities PRESERVED Imaging: Reviewed in EMR Assessment: 1. Lumbosacral spondylosis 2. SIJ dysfunction 3. lumbar spondylosis 4. chronic pain syndrome Plan: 1. Explanation: Opioid and psychological risk scores were reviewed. Diagnoses , prognoses, and multiple treatment options including but not limited to physical therapy, interventional therapies, adjuvant medical therapies, narcotic medication therapies, and surgery were discussed with the patient and all questions were answered to the patient's satisfaction. 2. Opioid agreement: no opioids prescribed today 3. Counseling: The patient was counseled extensively on BODY MASS INDEX, EXERCISE. Specifically, the patient was instructed regarding the importance of smoking cessation, weight control, and exercise in the context of both chronic pain and overall health. 4. Procedures: Left radio frequency ablation of L5, S1 to S3 medial branches 5. Consultations: None 6. Investigations: None 7. Medications: none prescribed 8. Disposition: Procedure at next available date.
== END | disposition home or self-care (01) ==
LOC: PNWHC3 09-07 14:25
PROVIDERS: ATTEND Anesthesiology
DX: G89.4 Chronic pain syndrome (principal); M47.817 Spondylosis without myelopathy or radiculopathy, lumbosacral region; M53.3 Sacrococcygeal disorders, not elsewhere classified
CPT/HCPCS: 99211

== ENCOUNTER → 2017-11-15 | Outpatient (CLI) | payer MEDICARE, BC ==
[2017-11-15 14:47] VITALS: BP 135/69; PULSE 77; RESP 18
--- NOTE | 2017-11-15 15:33 | P.PAINPG ---
Subjective Progress Note Date: 11/15/17 Patient returns for followup for chronic back pain with radiation to lower extremities, Patient has had a previous lumbar fusion, and is having multiple SI joint injections. He's had relief from SI joint injections , recently with done Radifrequency ablation of Left L5, S1 to S3 medial branches. She reported that the radiofrequency of the sacroiliac joint helped his back pain but he continued to have lower extremity pain, spatially when he changed position , he is unable to perform typical activities of daily living, he is unable to grocery shop, unable to clean his home, and requires excessive assistance because of pain. Patient is adamant that he does not want any opiates, or opiate derivatives. He has tried tramadol in the past and does not want to continue. Today, pt had bladder incontinence,( after radiation therapy of the prostate ) In addition to above, 13-point review of systems is also negative for chest pain , shortness of breath, changes in vision, changes in hearing, new onset weakness , abdominal pain, diarrhea, extreme fatigue, malaise, fever, skin changes, homicidal or suicidal ideation, or bowel or bladder incontinence. Vital Signs: Reviewed in EMR Gen: WDWN, AAOx3, NAD HEENT: NCAT, EOMI, hearing grossly normal Pulm: resp unlabored Abd: soft, NT, ND Neck: supple, trachea midline ROM in flexion lumbar spine: reduced ROM in extension lumbar spine: reduced Lumbar paravertebral tenderness: + Facet loading: + bilateral SI joint tenderness: + L>R Manuel's test: + L > R Neuro: CN II-XII grossly intact, muscle strength lower extremities PRESERVED Imaging: Reviewed in EMR Assessment: Failed back surgery syndrome lumbar area , sacroiliac joint dysfunction, sacroiliitis , lumbar spondylosis Plan: 1. Explanation: Opioid and psychological risk scores were reviewed. Diagnoses , prognoses, and multiple treatment options including but not limited to physical therapy, interventional therapies, adjuvant medical therapies, narcotic medication therapies, and surgery were discussed with the patient and all questions were answered to the patient's satisfaction. 2. Opioid agreement: no opioids prescribed today 3. Counseling: The patient was counseled extensively on BODY MASS INDEX, EXERCISE. Specifically, the patient was instructed regarding the importance of smoking cessation, weight control, and exercise in the context of both chronic pain and overall health. 4. Procedures: Patient was referred to have computed tomography scan of the lumbar spine with and without contrast, in the future patient could be a candidate to have caudal epidural steroid injection with lysis of epidural adhesions 5. Consultations: None 7. Medications: none prescribed Objective - Vital Signs Vital signs: Vital Signs Temp Pulse 77 11/15/17 14:39 Resp 18 11/15/17 14:39 BP 135/69 11/15/17 14:39 Pulse Ox 97 11/15/17 14:39 Intake & Output 11/14/17 11/15/17 11/15/17 18:59 06:59 18:59 Weight 92.986 kg PQRS Measure Charge Sheet Measure #130: Documentation of Current Meds in Medical Chart: Patient's medications documented in chart Measure #226: Tobacco Use: Screen & Cessation Intervention: Pt not a tobacco user Measure #111: Pneumonia Vaccination: Pneumococcal vaccine administered or previously received Measure #47: Advance Care Plan: Advance care planning discussed & documented, pt chose/unable to give Measure #412: Opioid Treatment Agreement: No documentation of signed opioid treatment agreement Measure #408: Opioid Therapy Follow-up Evaluation: Patient had NO f/u eval minimum every 3 months during opioid therapy Measure #317: Preventitive Care & Scrn High Bld Press & F/U: Normal blood pressure, f/u not required Measure #128: Body Mass Index (BMI) Screening & Follow-up: BMI documented ABOVE normal parameters - f/u documented Measure #131: Pain Assessment & Follow-up: Pain positive & plan documented, Follow-up scheduled Measure #431: Unhealthy Alcohol Use Preventative Care & Scrn: Patient not identified as an unhealthy alcohol user PQRS Narrative: Smoking Status Former smoker Narcotic Agreement Date Signed 04/14/17 Blood Pressure 135/69 Pain Intensity [Lower Back] 1 Scale Used Numeric (1 - 10) Hx Alcohol Use (MH) No Home Medications: Ambulatory Orders Atenolol [Tenormin] 25 mg PO BID 10/06/13 Benazepril HCl 20 mg PO BID 10/06/13 amLODIPine [Norvasc] 5 mg PO BID 10/06/13 metFORMIN HCL 1,000 mg PO AC-SUPPER 10/06/13 Vitamin B Complex 1 cap PO DAILY 05/02/14 Aspirin 325 mg PO DAILY #30 tab 07/15/15 Ascorbic Acid [Vitamin C] 1,000 mg PO DAILY 10/13/15 Cholecalciferol [Vitamin D3] 1,000 unit PO DAILY 10/13/15 Indapamide 2.5 mg PO DAILY 10/13/15 Omeprazole [PriLOSEC] 20 mg PO BID 10/13/15 Ubidecarenone [Co Q-10] 100 mg PO DAILY 10/13/15 Calcitonin Nasal [Fortical (Miacalcin)] 1 spray EA NOSTRIL DAILY 10/22/15 Psyllium Husk [Metamucil] 0.4 gm PO DAILY PRN 03/22/17 Ferrous Sulfate 134mg 134 mg PO DAILY 08/29/17 Atorvastatin [Lipitor] 20 mg PO HS 09/28/17 Controlled Substance Measures - Controlled Substance Measures Is patient prescribed a controlled substance at discharge?: No When asked, does pt state using other controlled substances?: No If prescribed controlled substance>3 days was MAPS reviewed?: No If Rx opioid, was Start Talking consent form obtained?: No If opioid is for acute pain is fill amount 7 days or less?: No Was information provided regarding opioid addiction?: No
== END | disposition home or self-care (01) ==
LOC: PNWHC3 13:12
PROVIDERS: ATTEND Specialist
DX: M47.816 Spondylosis without myelopathy or radiculopathy, lumbar region (principal); M96.1 Postlaminectomy syndrome, not elsewhere classified; M53.3 Sacrococcygeal disorders, not elsewhere classified; M46.1 Sacroiliitis, not elsewhere classified; Z87.891 Personal history of nicotine dependence; Z79.84 Long term (current) use of oral hypoglycemic drugs; Z79.82 Long term (current) use of aspirin; Z79.899 Other long term (current) drug therapy
CPT/HCPCS: 99211

== ENCOUNTER → 2017-11-30 | Outpatient (CLI) | payer MEDICARE, BC ==
--- NOTE | 2017-11-30 11:41 | CT ---
EXAMINATION TYPE: CT lumbar spine wo/w con DATE OF EXAM: 11/30/2017 COMPARISON: 07/12/2015 HISTORY: 77-year-old male with failed Back surgery. LT sciatic pain. TECHNIQUE: Contiguous axial scanning of the lumbar spine performed without and with IV Contrast, ailin ent injected with 80 mL of Isovue 300. Coronal/sagittal reconstructions performed. CT DLP: 3733 mGycm Automated exposure control for dose reduction was used. FINDINGS: High density exophytic lesion upper pole right kidney measures 2.9 cm with around 65 Hounsfield unit attenuation on both pre and postcontrast images suggesting a hemorrhagic cyst. 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 Aortobiiliac endovascular stent g raft is present from the level of the celiac axis. [place] aneurysm sac measures approximately 5.3 cm likely relatively similar to 07/04/2015 where it was incompletely imaged on the sagittal series. Posterior lumbar fusion changes are present with transpedicular screws at L1-L2 and also at L5-S1. [place] t[place] osseous fusion extends from L1 through S1 levels. Corresponding laminectomies. Fixed grade 1 an terolisthesis at L4-L5. Interval resolution of the previous posterior midline fluid collections. The presence of metal hardware artifact limits assessment. This seems to be broad-based discussed by complex at L5-S1 possibly abutting the traversing right S1 nerve root as well as the exiting right L5 nerve root. Moderate bilateral neural foraminal stenosis at this level is relatively similar. No evident spinal canal compromise. On the left, there is similar moderate neural foraminal stenosis secondary to bony hypertrophy at L1- L2 and mild at L2-L3, L3-L4, and L4-L5. On the right, similar moderate to severe neural foraminal stenosis at L1-L2 and mild to moderate at L 4-L5. Mild additional levels. Vertebral body heights are preserved. Remaining alignment is maintained. IMPRESSION: 1. STATUS POST L1-S1 LATERAL OSSEOUS FUSION. POSTERIOR FUSION HARDWARE REMAINS AT L1-L2 AND L5-S1. TH ERE ARE CORRESPONDING LAMINECTOMIES WITH INTERVAL RESOLUTION OF THE PREVIOUS POSTERIOR MIDLINE FLUID COLLECTIONS. 2. NO EVIDENT SPINAL CANAL COMPROMISE. THERE IS STABLE FIXED GRADE 1 ANTEROLISTHESIS AT THE FUSED L4- L5 LEVEL. 3. BULGING DISC AT L5-S1 MAY ABUT THE TRAVERSING RIGHT S1 NERVE ROOT WELL THE EXITING RIGHT L5 NERVE ROOT. 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 4. ADDITIONAL VARIABLE BONY NEUROFORAMINAL NARROWING OUTLINED ABOVE, RELATIVELY SIMILAR TO 2016.
== END | disposition home or self-care (01) ==
LOC: RADCTMAIN 09:46
PROVIDERS: ATTEND Specialist
DX: M99.73 Connective tissue and disc stenosis of intervertebral foramina of lumbar region (principal); M43.16 Spondylolisthesis, lumbar region; M51.27 Other intervertebral disc displacement, lumbosacral region; Z98.1 Arthrodesis status
CPT/HCPCS: 82565; 84520; 72133; 36415; Q9967

== ENCOUNTER → 2017-12-08 | Outpatient (CLI) | payer MEDICARE, BC ==
[2017-12-08 12:15] VITALS: BP 137/85; PULSE 81; RESP 18
--- NOTE | 2017-12-08 12:55 | P.PN ---
Subjective Progress Note Date: 12/08/17 Principal diagnosis: Failed back surgery syndrome This is a 77-year-old gentleman with history of lower back pain status post multiple back surgeries. The patient had sacroiliac joint steroid injection which gave him good relief of pain for about 2 weeks and then we did RFA on the left sacroiliac joint. He'll see if his pain on the right side of his lower back. Today, pt denies new-onset weakness, bowel/bladder incontinence, or any other signs or symptoms of cauda equina syndrome. There are no signs of acute intoxication, and no indications of medication diversion or overuse. In addition to above, 13-point review of systems is also negative for chest pain , shortness of breath, changes in vision, changes in hearing, new onset weakness , abdominal pain, diarrhea, extreme fatigue, malaise, fever, skin changes, homicidal or suicidal ideation, or bowel or bladder incontinence. 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 Explanation: Opioid and psychological risk scores were reviewed. Diagnoses , prognoses, and multiple treatment options including but not limited to physical therapy, interventional therapies, adjuvant medical therapies, narcotic medication therapies, and surgery were discussed with the patient and all questions were answered to the patient's satisfaction. 2. Opioid agreement: Signed with the patient and the patient is warned not to use opioids while driving or before driving and not to combine opioids with benzodiazepines or alcohol. 3. Counseling: The patient was counseled extensively on SMOKING CESSATION, BODY MASS INDEX, EXERCISE. Specifically, the patient was instructed regarding the importance of smoking cessation, obesity, and exercise in the context of both chronic pain and overall health. 4. Procedures: Scheduled for right sacroiliac joint RFA(L5 dorsal ramus and S1- S2 and S3 lateral branches). 5. Consultations: None 6. Investigations: None 7. Medications: None 8. Disposition: Return to the above-mentioned procedure as soon as possible 9. Maps were reviewed and were appropriate. Objective - Vital Signs Vital signs: Vital Signs Temp Pulse 81 12/08/17 12:08 Resp 18 12/08/17 12:08 BP 137/85 12/08/17 12:08 Pulse Ox 98 12/08/17 12:08
== END | disposition home or self-care (01) ==
LOC: PNWHC3 11:37
PROVIDERS: ATTEND Anesthesiology
DX: M96.1 Postlaminectomy syndrome, not elsewhere classified (principal); M53.88 Other specified dorsopathies, sacral and sacrococcygeal region; Z98.890 Other specified postprocedural states
CPT/HCPCS: 99211

== ENCOUNTER → 2017-12-13 | Outpatient (CLI) | payer MEDICARE, BC | END | disposition home or self-care (01) | LOC: LABWHC1 09:27 | PROVIDERS: ATTEND Urology | DX: C61 Malignant neoplasm of prostate (principal) | CPT/HCPCS: 36415; 84153 ==

== ENCOUNTER 2018-01-08 14:41 | Inpatient (IN) | payer MEDICARE, BC ==
[2018-01-08] MEDS ORDERED: MORPHINE SULFATE 4 MG/ML SYRINGE IV STA ×2 (15:28→17:52)
[2018-01-08 15:57] LABS: Albumin 4.3 g/dL (3.5-5.0); Basophils % (A) 0 %; Calcium 10.1 mg/dL (8.4-10.2); Eosinophils % (A) 0 %; HGB 12.2 gm/dL (13.0-17.5); Lymphocytes # (A) 0.8 k/uL (1.0-4.8); Lymphocytes % (A) 5 %; MCH 31.5 pg (25.0-35.0); MCHC 32.2 g/dL (31.0-37.0); MCV 97.9 fL (80.0-100.0); Mean Platelet Volume 7.5; Monocytes # (A) 0.7 k/uL (0-1.0); Monocytes % (A) 5 %; Neutrophils # (A) 12.8 k/uL (1.3-7.7); Neutrophils % (A) 88 %; Platelet Count 333 k/uL (150-450); Potassium 5.6 mmol/L (3.5-5.1); RBC 3.88 m/uL (4.30-5.90); Total Bilirubin 0.6 mg/dL (0.2-1.3); Total Protein 7.3 g/dL (6.3-8.2); WBC 14.5 k/uL (3.8-10.6)
[2018-01-08] MEDS ORDERED: SODIUM CHLORIDE 0.9% 1,000 ML IV STA ×2 (16:08→16:09)
[2018-01-08 16:28] LABS: Appearance,Urine Turbid (Clear); Bilirubin,Urine Negative (Negative); Blood,Urine Large (Negative); Color,Urine Red; Glucose,Urine (UA) Negative (Negative); Ketones,Urine 1+ (Negative); Leukocyte Esterase,Urine Large (Negative); Nitrite,Urine Positive (Negative); Protein,Urine 2+ (Negative); RBC,Urine >182 /hpf (0-5); Specific Gravity,Urine 1.017 (1.001-1.035); Urobilinogen,Urine <2.0 mg/dL (<2.0)
--- NOTE | 2018-01-08 17:08 | XR ---
EXAMINATION TYPE: XR KUB DATE OF EXAM: 01/08/2018 4:54 PM CLINICAL HISTORY: Abdominal pain and pressure with inability to urinate. TECHNIQUE: Single upright image of the abdomen is obtained. COMPARISON: 10/06/2013. FINDINGS: Scattered gas is seen in non-distended small bowel loops. Gas and fecal material is seen in non-distended colon. There is no visceromegaly, pneumoperitoneum, or abnormal calcification apprecia loreto. The lung bases are clear and the osseous structures are intact. There are extensive postsurgical changes of the abdomen and spine as well as of the aorta. Calcific atheromatous changes are seen of the abdominal aorta. There is diffuse osseous demineralization. IMPRESSION: Nonobstructive bowel gas pattern. Postsurgical changes of the abdomen, aorta and spine.
--- NOTE | 2018-01-08 17:33 | CT ---
EXAMINATION TYPE: CT abdomen pelvis wo con DATE OF EXAM: 01/08/2018 COMPARISON: 05/25/2017 and 05/29/2012 HISTORY: Urinary retention. CT DLP: 864.1 mGycm Automated exposure control for dose reduction was used. TECHNIQUE: Helical acquisition of images was performed from the lung bases through the pelvis. FINDINGS: Motion artifact limits the examination. LUNG BASES: Subpleural deposition of fat is seen on the left. LIVER/GB: No significant abnormality is appreciated. Again gallbladder is not seen and presumed to be surgically absent. PANCREAS: No significant abnormality is seen. SPLEEN: Extremely limited secondary to motion artifact. ADRENALS: Is very slight nodularity of the mary of the right adrenal gland with Hounsfield unit most compatible with a lipid rich adenoma, benign. KIDNEYS: There is a 2.9 cm slightly enlarged right solid renal mass emanating from the superior pole in comparison to the exam of 05/25/2017. Inferior to this within the midpole there is a similar appear ing slightly high density possibly complex cystic right renal lesion on image 57. A fluid attenuated cystic right renal lesion as on image 54 measuring 3.8 cm. On the left there is an upper pole renal c yst measuring 1.5 cm. FREE AIR: No free air is visualized ADENOPATHY: No greater than 1 cm short axis lymph node is seen within the abdomen or pelvis REPRODUCTIVE ORGANS: Prostate gland appears surgically absent URINARY BLADDER: Incompletely evaluated due to the presence of a Villalobos catheter decompressing the ur inary bladder OSSEOUS STRUCTURES: Postsurgical changes of the lumbar spine are present. Degenerative changes of th e thoracolumbar spine are also seen. BOWEL: The large bowel is collapsed distally but appears unremarkable without surrounding fat strand ing. No dilated small bowel is seen OTHER: Postsurgical changes of the abdominal wall are noted. There is an infrarenal abdominal aortic aneurysm as seen on the prior that when measured at similar l ocation measures 5.6 x 5.5 cm, increased from the prior of 5.2 x 5.3 cm. 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 There is an aortobiiliac endograft present unchanged in position from the prior IMPRESSION: 1. URINARY BLADDER IS INCOMPLETELY ASSESSED IT IS COLLAPSED DUE TO PLACEMENT OF A VILLALOBOS CATHETER. 2. ENLARGING INFRARENAL ABDOMINAL AORTIC ANEURYSM WITH AORTOBIILIAC ENDOGRAFT. NO SURROUNDING FAT STR ANDING TO OR FLUID TO SUGGEST RUPTURE. TYPE V ENDOLEAK SHOULD BE SUSPECTED AND FOLLOW-UP WITH VASCULA R SURGERY IS RECOMMENDED. 3. ALTHOUGH THE RIGHT SUPERIOR POLE RENAL LESION APPEARS SOLID AND HOUNSFIELD UNIT MEASUREMENTS APPEA RS TO BE PRESENT BACK TO 05/29/2012 AND THEREFORE COULD RELATE TO A RENAL CYST WITH INTERNAL HEMORRHAG E AND DEBRIS. ULTRASOUND IS RECOMMENDED TO ENSURE INCREASED THROUGH TRANSMISSION AND NO INTERNAL VASC ULARITY.
[2018-01-08] MEDS ORDERED: LEVOFLOXACIN 500MG-D5W PMX 500 MG in DEXTROSE/WATER 1 100ML.BAG IVPB STA (18:04)
[2018-01-08] MEDS ORDERED: NALOXONE 0.4 MG/ML 1 ML VIAL IV PRN (19:24)
[2018-01-08] MEDS: HYDROmorphone 1 MG/ML 1 ML SYRINGE IVP PRN (20:05)
--- NOTE | 2018-01-08 20:24 | ED ---
General Adult HPI - General Chief complaint: Urogenital Stated complaint: cannot urinate Source: patient Mode of arrival: wheelchair Limitations: no limitations - Related Data Home Medications Medication Instructions Recorded Confirmed amLODIPine [Norvasc] 5 mg PO BID 10/06/13 01/08/18 metFORMIN HCL 1,000 mg PO AC-SUPPER 10/06/13 01/08/18 Vitamin B Complex 1 cap PO DAILY 05/02/14 01/08/18 Ascorbic Acid [Vitamin C] 1,000 mg PO DAILY 10/13/15 01/08/18 Cholecalciferol [Vitamin D3] 1,000 unit PO DAILY 10/13/15 01/08/18 Omeprazole [PriLOSEC] 20 mg PO BID 10/13/15 01/08/18 Ubidecarenone [Co Q-10] 100 mg PO DAILY 10/13/15 01/08/18 Calcitonin Nasal [Fortical 1 spray EA NOSTRIL DAILY 10/22/15 01/08/18 (Miacalcin)] Psyllium Husk [Metamucil] 0.4 gm PO DAILY PRN 03/22/17 01/08/18 Ferrous Sulfate 134mg 134 mg PO DAILY 08/29/17 01/08/18 Atorvastatin [Lipitor] 20 mg PO HS 09/28/17 01/08/18 Glucosam/Angel Luis-Msm1/C/Emeka/Bosw 3 tab PO DAILY 12/23/17 01/08/18 [Glucosamine-Chondroitin Tablet] Previous Rx's Medication Instructions Recorded Aspirin 325 mg PO DAILY #30 tab 07/15/15 Atenolol [Tenormin] 50 mg PO BID #60 tab 01/11/18 Cephalexin [Keflex] 500 mg PO Q8HR #12 cap 01/11/18 Allergies Allergy/AdvReac Type Severity Reaction Status Date / Time No Known Allergies Allergy Verified 01/13/18 15:03 Review of Systems ROS Statement: Those systems with pertinent positive or pertinent negative responses have been documented in the HPI. ROS Other: All systems not noted in ROS Statement are negative. 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,Hx prostate cancer;Chronic back pain; Chronic anemia, peptic ulcer disease, CVA in June 2015 and MRI of the brain showed increased signal within the cortex of the right frontal and frontoparietal lobes consistent with infarcts., aortic aneurysm with previous insertion of an aortic stent, carotid artery stenosis, History of Any Multi-Drug Resistant Organisms: MRSA Date of last positivie culture/infection: 2011 MDRO Source:: abdominal incision Past Surgical History: Back Surgery, Bladder Surgery, Cholecystectomy, Hernia Repair, Prostate Surgery Additional Past Surgical History / Comment(s): Prostatectomy, bladder suspension surgery, and the vascular stenting of an aortic aneurysm, hemorrhoidectomy, bilateral cataract surgery, back surgery X4 (16 LAMENECTOMY) Past Anesthesia/Blood Transfusion Reactions: No Reported Reaction Past Psychological History: No Psychological Hx Reported Smoking Status: Former smoker Past Alcohol Use History: None Reported Past Drug Use History: None Reported - Past Family History Brother(s) Family Medical History: CVA/TIA Son(s) Family Medical History: No Reported History Father Family Medical History: Cancer Additional Family Medical History / Comment(s): BRAIN Mother Family Medical History: Cancer Additional Family Medical History / Comment(s): "BLOOD CANCER" General Exam - General Exam Comments Initial Comments: General: The patient is awake and alert, patient presented emergency room complaining of hematuria but no significant discomfort. History of bladder pathology and prostate cancer per patient. Vital signs per nurse's notes. Eye: Pupils are equal, round and reactive to light, extra-ocular movements are intact ; Ears, nose, mouth and throat: There are moist mucous membranes Neck: The neck is supple, Cardiovascular: No complaint of chest pain. Respiratory: Lungs are clear to auscultation, Gastrointestinal: Mild suprapubic discomfort. Patient has an indwelling Hernandez catheter this time. Back: There is no tenderness to palpation in the midline. There is no obvious deformity. No rashes noted. Musculoskeletal: Full range of motion upper and lower extremities Neurological: No complaint of any neuro deficits or weakness.. Skin: Skin is warm and dry and no rashes or lesions are noted. Psychiatric: Cooperative, Limitations: no limitations Course Vital Signs 01/08/18 01/08/18 01/08/18 14:43 15:10 15:11 Temperature 97.8 F Pulse Rate 133 H 98 Pulse Rate [ Pulse Oximetery ] Respiratory 18 18 Rate Blood Pressure 204/104 138/111 Blood Pressure [Right Arm] O2 Sat by Pulse 97 97 Oximetry 01/08/18 01/08/18 01/08/18 17:55 19:27 22:00 Temperature 97.7 F Pulse Rate 110 H 98 78 Pulse Rate [ Pulse Oximetery ] Respiratory 17 18 18 Rate Blood Pressure 130/97 135/95 132/84 Blood Pressure [Right Arm] O2 Sat by Pulse 98 98 98 Oximetry 01/08/18 22:39 Temperature 97.6 F Pulse Rate Pulse Rate [ 127 H Pulse Oximetery ] Respiratory 16 Rate Blood Pressure Blood Pressure 115/72 [Right Arm] O2 Sat by Pulse 97 Oximetry Medical Decision Making - Medical Decision Making Medical decision making; this is a 77-year-old male was called emergency room because of hematuria. Workup shows evidence of white count of 14.5, BUN of 58 creatinine 2.28 and GFR 27. These are numbers worsening were 6 months ago. The patient's urine shows positive leukoesterase and greater than 180 whites and reds. The patient was started on Levaquin. CAT scan was done showing several things per radiologist that will necessitate further evaluation by vascular surgery, Dr. Stewart will be asked to consult. As well as urology. Dr. Rosas notified and will see the patient tomorrow. Dr. Bruce - Lab Data Result diagrams: 01/11/18 07:05 01/11/18 07:05 Lab Results 01/08/18 01/08/18 01/08/18 Range/Units 15:35 15:35 15:35 WBC 14.5 H (3.8-10.6) k/uL RBC 3.88 L (4.30-5.90) m/uL Hgb 12.2 L (13.0-17.5) gm/dL Hct 38.0 L (39.0-53.0) % MCV 97.9 (80.0-100.0) fL MCH 31.5 (25.0-35.0) pg MCHC 32.2 (31.0-37.0) g/dL RDW 13.0 (11.5-15.5) % Plt Count 333 (150-450) k/uL Neutrophils % 88 % Lymphocytes % 5 % Monocytes % 5 % Eosinophils % 0 % Basophils % 0 % Neutrophils # 12.8 H (1.3-7.7) k/uL Lymphocytes # 0.8 L (1.0-4.8) k/uL Monocytes # 0.7 (0-1.0) k/uL Eosinophils # 0.0 (0-0.7) k/uL Basophils # 0.0 (0-0.2) k/uL Sodium 139 (137-145) mmol/L Potassium 5.6 H (3.5-5.1) mmol/L Chloride 108 H (98-107) mmol/L Carbon Dioxide 13 L (22-30) mmol/L Anion Gap 18 mmol/L BUN 58 H (9-20) mg/dL Creatinine 2.28 H (0.66-1.25) mg/dL Est GFR (CKD-EPI)AfAm 31 (>60 ml/min/1.73 sqM) Est GFR (CKD-EPI)NonAf 27 (>60 ml/min/1.73 sqM) Glucose 171 H (74-99) mg/dL Estimated Ave Glu mg/dL 134 Hemoglobin A1c 6.3 H (4.0-6.0) % Calcium 10.1 (8.4-10.2) mg/dL Total Bilirubin 0.6 (0.2-1.3) mg/dL AST 35 (17-59) U/L ALT 31 (21-72) U/L Alkaline Phosphatase 86 (38-126) U/L Total Protein 7.3 (6.3-8.2) g/dL Albumin 4.3 (3.5-5.0) g/dL Urine Color Urine Appearance (Clear) Urine pH (5.0-8.0) Ur Specific [place] (1.001-1.035) Urine Protein (Negative) Urine Glucose (UA) (Negative) Urine Ketones (Negative) Urine Blood (Negative) Urine Nitrite (Negative) Urine Bilirubin (Negative) Urine Urobilinogen (<2.0) mg/dL Ur Leukocyte Esterase (Negative) Urine RBC (0-5) /hpf Urine WBC (0-5) /hpf Urine WBC Clumps (None) /hpf Stool Occult Blood (Negative) 01/08/18 01/08/18 Range/Units 16:01 16:01 WBC (3.8-10.6) k/uL RBC (4.30-5.90) m/uL Hgb (13.0-17.5) gm/dL Hct (39.0-53.0) % MCV (80.0-100.0) fL MCH (25.0-35.0) pg MCHC (31.0-37.0) g/dL RDW (11.5-15.5) % Plt Count (150-450) k/uL Neutrophils % % Lymphocytes % % Monocytes % % Eosinophils % % Basophils % % Neutrophils # (1.3-7.7) k/uL Lymphocytes # (1.0-4.8) k/uL Monocytes # (0-1.0) k/uL Eosinophils # (0-0.7) k/uL Basophils # (0-0.2) k/uL Sodium (137-145) mmol/L Potassium (3.5-5.1) mmol/L Chloride (98-107) mmol/L Carbon Dioxide (22-30) mmol/L Anion Gap mmol/L BUN (9-20) mg/dL Creatinine (0.66-1.25) mg/dL Est GFR (CKD-EPI)AfAm (>60 ml/min/1.73 sqM) Est GFR (CKD-EPI)NonAf (>60 ml/min/1.73 sqM) Glucose (74-99) mg/dL Estimated Ave Glu mg/dL Hemoglobin A1c (4.0-6.0) % Calcium (8.4-10.2) mg/dL Total Bilirubin (0.2-1.3) mg/dL AST (17-59) U/L ALT (21-72) U/L Alkaline Phosphatase (38-126) U/L Total Protein (6.3-8.2) g/dL Albumin (3.5-5.0) g/dL Urine Color Red Urine Appearance Turbid (Clear) Urine pH 6.0 (5.0-8.0) Ur Specific [place] 1.017 (1.001-1.035) Urine Protein 2+ H (Negative) Urine Glucose (UA) Negative (Negative) Urine Ketones 1+ H (Negative) Urine Blood Large H (Negative) Urine Nitrite Positive (Negative) Urine Bilirubin Negative (Negative) Urine Urobilinogen <2.0 (<2.0) mg/dL Ur Leukocyte Esterase Large H (Negative) Urine RBC >182 H (0-5) /hpf Urine WBC >182 H (0-5) /hpf Urine WBC Clumps Many H (None) /hpf Stool Occult Blood Negative (Negative) Disposition Clinical Impression: Hematuria Disposition: ADMITTED IP TO THIS HOSP Condition: Good Is patient prescribed a controlled substance at d/c from ED?: No
[2018-01-08 23:14] VITALS: BMI 35.5
[2018-01-09] MEDS: HYDROmorphone 1 MG/ML 1 ML SYRINGE IVP PRN ×4 (02:49→21:47)
[2018-01-09 07:08] LABS: Glucose,Whole Blood 137 mg/dL (75-99)
[2018-01-09] MEDS: SODIUM CHLORIDE 0.9% 1,000 ML IV SCH ×2 (07:55→20:00)
[2018-01-09] MEDS: INSULIN ASPART 100 UNIT/ML 1 ML 10 ML VIAL SQ SCH ×4 (08:00→20:57)
--- NOTE | 2018-01-09 08:32 | P.GSCN ---
History of Present Illness Consult date: 01/09/18 Reason for Consult: Gross Hematuria Requesting physician: Ray Bey History of present illness: The patient is a 77-year-old white male well known to Dr. Lorenzana. He underwent a radical prostatectomy for prostate cancer (Stage [id number]) in 2003, and received salvage radiation therapy in 2009. He has also been treated with androgen deprivation therapy; he received most recently a 6 month Lupron injection in December 2016. His PSA level was 0.06 in May 2017. The patient is a vague historian. He was admitted overnight after presenting to the emergency room with gross hematuria and difficulty voiding. He experienced right lower back pain, which has resolved. 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,Hx prostate cancer;Chronic back pain; Chronic anemia, peptic ulcer disease, CVA in June 2015 and MRI of the brain showed increased signal within the cortex of the right frontal and frontoparietal lobes consistent with infarcts., aortic aneurysm with previous insertion of an aortic stent, carotid artery stenosis, History of Any Multi-Drug Resistant Organisms: MRSA Year Discovered:: 2011 MDRO Source:: abdominal incision Past Surgical History: Back Surgery, Bladder Surgery, Cholecystectomy, Hernia Repair, Prostate Surgery Additional Past Surgical History / Comment(s): Prostatectomy, bladder suspension surgery, and the vascular stenting of an aortic aneurysm, hemorrhoidectomy, bilateral cataract surgery, back surgery X4 (5-4-16 LAMENECTOMY) Past Anesthesia/Blood Transfusion Reactions: No Reported Reaction Past Psychological History: No Psychological Hx Reported Additional Psychological History / Comment(s): . Smoking Status: Former smoker Past Alcohol Use History: None Reported Additional Past Alcohol Use History / Comment(s): Pt states he started smoking in 7 and quit in 1987. SMOKED 2 PPD. , SMOKED FOR 33 YEARS Past Drug Use History: None Reported - Past Family History Brother(s) Family Medical History: CVA/TIA Son(s) Family Medical History: No Reported History Father Family Medical History: Cancer Additional Family Medical History / Comment(s): BRAIN Mother Family Medical History: Cancer Additional Family Medical History / Comment(s): "BLOOD CANCER" Medications and Allergies Home Medications Medication Instructions Recorded Confirmed Type Atenolol [Tenormin] 25 mg PO BID 10/06/13 01/08/18 History Benazepril HCl 20 mg PO BID 10/06/13 01/08/18 History amLODIPine [Norvasc] 5 mg PO BID 10/06/13 01/08/18 History metFORMIN HCL 1,000 mg PO AC-SUPPER 10/06/13 01/08/18 History Vitamin B Complex 1 cap PO DAILY 05/02/14 01/08/18 History Aspirin 325 mg PO DAILY #30 tab 07/15/15 01/08/18 Rx Ascorbic Acid [Vitamin C] 1,000 mg PO DAILY 10/13/15 01/08/18 History Cholecalciferol [Vitamin D3] 1,000 unit PO DAILY 10/13/15 01/08/18 History Indapamide 2.5 mg PO DAILY 10/13/15 01/08/18 History Omeprazole [PriLOSEC] 20 mg PO BID 10/13/15 01/08/18 History Ubidecarenone [Co Q-10] 100 mg PO DAILY 10/13/15 01/08/18 History Calcitonin Nasal [Fortical 1 spray EA NOSTRIL DAILY 10/22/15 01/08/18 History (Miacalcin)] Psyllium Husk [Metamucil] 0.4 gm PO DAILY PRN 03/22/17 01/08/18 History Ferrous Sulfate 134mg 134 mg PO DAILY 08/29/17 01/08/18 History Atorvastatin [Lipitor] 20 mg PO HS 09/28/17 01/08/18 History Glucosam/Angel Luis-Msm1/C/Emeka/Bosw 3 tab PO DAILY 12/23/17 01/08/18 History [Glucosamine-Chondroitin Tablet] Allergies Allergy/AdvReac Type Severity Reaction Status Date / Time No Known Allergies Allergy Verified 01/08/18 20:16 Surgical - Exam Vital Signs Temp Pulse Resp BP Pulse Ox 97.8 F 133 H 18 204/104 97 01/08/18 14:43 01/08/18 14:43 01/08/18 14:43 01/08/18 14:43 01/08/18 14:43 - General well developed, well nourished, no distress - Respiratory normal respiratory effort - Abdomen Abdomen: soft, non tender, no guarding, no rigid, no rebound - Genitourinary normal penis with no external lesions, testicles non-tender - Psychiatric oriented to time, oriented to person, oriented to place, speech is normal Results - Labs 01/08/18 15:35 01/08/18 15:35 Abnormal Lab Results - Last 24 Hours (Table) 01/08/18 01/08/18 01/08/18 Range/Units 15:35 15:35 16:01 WBC 14.5 H (3.8-10.6) k/uL RBC 3.88 L (4.30-5.90) m/uL Hgb 12.2 L (13.0-17.5) gm/dL Hct 38.0 L (39.0-53.0) % Neutrophils # 12.8 H (1.3-7.7) k/uL Lymphocytes # 0.8 L (1.0-4.8) k/uL Potassium 5.6 H (3.5-5.1) mmol/L Chloride 108 H (98-107) mmol/L Carbon Dioxide 13 L (22-30) mmol/L BUN 58 H (9-20) mg/dL Creatinine 2.28 H (0.66-1.25) mg/dL Glucose 171 H (74-99) mg/dL Urine Protein 2+ H (Negative) Urine Ketones 1+ H (Negative) Urine Blood Large H (Negative) Ur Leukocyte Esterase Large H (Negative) Urine RBC >182 H (0-5) /hpf Urine WBC >182 H (0-5) /hpf Urine WBC Clumps Many H (None) /hpf Microbiology - Last 24 Hours (Table) 01/08/18 16:01 Urine Culture - Preliminary Urine,Voided Diabetes panel 01/08/18 Range/Units 15:35 Sodium 139 (137-145) mmol/L Potassium 5.6 H (3.5-5.1) mmol/L Chloride 108 H (98-107) mmol/L Carbon Dioxide 13 L (22-30) mmol/L BUN 58 H (9-20) mg/dL Creatinine 2.28 H (0.66-1.25) mg/dL Glucose 171 H (74-99) mg/dL Calcium 10.1 (8.4-10.2) mg/dL AST 35 (17-59) U/L ALT 31 (21-72) U/L Alkaline Phosphatase 86 (38-126) U/L Total Protein 7.3 (6.3-8.2) g/dL Albumin 4.3 (3.5-5.0) g/dL Calcium panel 01/08/18 Range/Units 15:35 Calcium 10.1 (8.4-10.2) mg/dL Albumin 4.3 (3.5-5.0) g/dL Pituitary panel 01/08/18 Range/Units 15:35 Sodium 139 (137-145) mmol/L Potassium 5.6 H (3.5-5.1) mmol/L Chloride 108 H (98-107) mmol/L Carbon Dioxide 13 L (22-30) mmol/L BUN 58 H (9-20) mg/dL Creatinine 2.28 H (0.66-1.25) mg/dL Glucose 171 H (74-99) mg/dL Calcium 10.1 (8.4-10.2) mg/dL Adrenal panel 01/08/18 Range/Units 15:35 Sodium 139 (137-145) mmol/L Potassium 5.6 H (3.5-5.1) mmol/L Chloride 108 H (98-107) mmol/L Carbon Dioxide 13 L (22-30) mmol/L BUN 58 H (9-20) mg/dL Creatinine 2.28 H (0.66-1.25) mg/dL Glucose 171 H (74-99) mg/dL Calcium 10.1 (8.4-10.2) mg/dL Total Bilirubin 0.6 (0.2-1.3) mg/dL AST 35 (17-59) U/L ALT 31 (21-72) U/L Alkaline Phosphatase 86 (38-126) U/L Total Protein 7.3 (6.3-8.2) g/dL Albumin 4.3 (3.5-5.0) g/dL - Imaging CT scan - abdomen: report reviewed, image reviewed Assessment and Plan (1) Gross hematuria Current Visit: Yes Status: Acute Code(s): R31.0 - GROSS HEMATURIA SNOMED Code(s): 014114841 (2) Right renal mass Current Visit: Yes Status: Acute Code(s): N28.89 - OTHER SPECIFIED DISORDERS OF KIDNEY AND URETER SNOMED Code(s): 919535658 Plan: The patient has gross hematuria. Computed tomography scan suggests the presence of a 2.9 cm right upper pole solid renal mass. A Hernandez catheter was placed in the emergency room, but this clotted and was subsequently removed. He is now voiding frequently, with postvoid residuals of approximately 160 mL. The computed tomography scan shows poor definition of the bladder because of the indwelling Hernandez catheter, but it does suggest the presence of a small amount of clot or tumor within the bladder. A renal ultrasound will be obtained to better assess the right upper pole renal mass. He is being straight catheterized as needed. If the hematuria fails to improve, he may require Hernandez catheter placement with continuous bladder irrigation. Cystoscopy will ultimately be required to assess his bladder. Time with Patient: Greater than 30
--- NOTE | 2018-01-09 09:10 | US ---
EXAMINATION TYPE: US renals and bladder DATE OF EXAM: 01/09/2018 COMPARISON: NONE CLINICAL HISTORY: renal mass. EXAM MEASUREMENTS: Right Kidney: 10.5 x 4.8 x 4.7 cm Left Kidney: 10.6 x 5.0 x4.9 cm Patient of large body habitus unable to stay up on his side due to pain. Technically difficult. Right Kidney: superior pole cyst measuring 3.0 x 2.3 x 3.1, mid cyst measuring 4.2 x 3.9 x 4.0cm, pos sible visualization of mass measuring 2.3 x. 2.1 x 2.1cm Left Kidney: 2 hyperechoic foci seen measuring 1.) 1.1 x 0.8 x 1.0cm, 1.0 x 0.6 x 0.9cm 2.) cyst deborah suring 1.5 x 1.4 x 1.3cm Bladder: not visualized IMPRESSION: 1. There is a solid-appearing mass within the right kidney corresponding to the abnormality. Recommen d MRI follow-up. 2. Additional simple renal cyst. 3. Nonobstructing left renal calculus
[2018-01-09 11:56] LABS: Glucose,Whole Blood 156 mg/dL (75-99)
[2018-01-09] MEDS ORDERED: ATENOLOL 25 MG TAB PO SCH ×2 (12:15→15:30)
[2018-01-09] MEDS ORDERED: INDAPAMIDE 2.5 MG TAB PO SCH (12:15)
[2018-01-09] MEDS ORDERED: LISINOPRIL 20 MG TAB PO SCH (12:15)
[2018-01-09] MEDS: cefTRIAXone 2,000 MG in SODIUM CHLORIDE 0.9% 100 ML IVPB SCH (12:31)
[2018-01-09] MEDS: amLODIPine 5 MG TAB PO SCH ×2 (12:35→20:02)
[2018-01-09] MEDS: HYDROcodone/APAP 5-325MG 1 EACH TAB PO PRN ×2 (12:36→19:58)
--- NOTE | 2018-01-09 13:41 | P.GSCN ---
History of Present Illness Consult date: 01/09/18 Reason for Consult: Enlarging aneurysm post aortic stent graft History of present illness: This 77-year-old gentleman is admitted at this time for proceeding hematuria and renal insufficiency. He is currently stable and voiding. These issues are being addressed by urology and internal medicine. He has had no abdominal discomfort. Review of Systems All systems: negative - Constitutional Denies fever, Denies weight loss - EENT Eyes: denies blurred vision Ears, nose, mouth and throat: Denies dysphagia - Cardiovascular Denies chest pain, Denies orthopnea, Denies paroxysmal nocturnal dyspnea, Denies shortness of breath - Respiratory Denies cough, Denies hemoptysis - Gastrointestinal Reports as per HPI, Denies coffee ground emesis, Denies hematemesis, Denies hematochezia, Denies jaundice - Genitourinary Reports hematuria, Denies dysuria - Integumentary Denies rash, Denies unusual bruising - Neurological Denies headaches, Denies syncope - Hematologic/Lymphatic Denies easy bleeding, Denies easy bruising 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,Hx prostate cancer;Chronic back pain; Chronic anemia, peptic ulcer disease, CVA in June 2015 and MRI of the brain showed increased signal within the cortex of the right frontal and frontoparietal lobes consistent with infarcts., aortic aneurysm with previous insertion of an aortic stent, carotid artery stenosis, History of Any Multi-Drug Resistant Organisms: MRSA Year Discovered:: 2011 MDRO Source:: abdominal incision Past Surgical History: Back Surgery, Bladder Surgery, Cholecystectomy, Hernia Repair, Prostate Surgery Additional Past Surgical History / Comment(s): Prostatectomy, bladder suspension surgery, and the vascular stenting of an aortic aneurysm, hemorrhoidectomy, bilateral cataract surgery, back surgery X4 (5-4-16 LAMENECTOMY) Past Anesthesia/Blood Transfusion Reactions: No Reported Reaction Past Psychological History: No Psychological Hx Reported Additional Psychological History / Comment(s): . Smoking Status: Former smoker Past Alcohol Use History: None Reported Additional Past Alcohol Use History / Comment(s): Pt states he started smoking in 1955 and quit in 1987. SMOKED 2 PPD. , SMOKED FOR 33 YEARS Past Drug Use History: None Reported - Past Family History Brother(s) Family Medical History: CVA/TIA Son(s) Family Medical History: No Reported History Father Family Medical History: Cancer Additional Family Medical History / Comment(s): BRAIN Mother Family Medical History: Cancer Additional Family Medical History / Comment(s): "BLOOD CANCER" Medications and Allergies Home Medications Medication Instructions Recorded Confirmed Type Atenolol [Tenormin] 25 mg PO BID 10/06/13 01/08/18 History Benazepril HCl 20 mg PO BID 10/06/13 01/08/18 History amLODIPine [Norvasc] 5 mg PO BID 10/06/13 01/08/18 History metFORMIN HCL 1,000 mg PO AC-SUPPER 10/06/13 01/08/18 History Vitamin B Complex 1 cap PO DAILY 05/02/14 01/08/18 History Aspirin 325 mg PO DAILY #30 tab 07/15/15 01/08/18 Rx Ascorbic Acid [Vitamin C] 1,000 mg PO DAILY 10/13/15 01/08/18 History Cholecalciferol [Vitamin D3] 1,000 unit PO DAILY 10/13/15 01/08/18 History Indapamide 2.5 mg PO DAILY 10/13/15 01/08/18 History Omeprazole [PriLOSEC] 20 mg PO BID 10/13/15 01/08/18 History Ubidecarenone [Co Q-10] 100 mg PO DAILY 10/13/15 01/08/18 History Calcitonin Nasal [Fortical 1 spray EA NOSTRIL DAILY 10/22/15 01/08/18 History (Miacalcin)] Psyllium Husk [Metamucil] 0.4 gm PO DAILY PRN 03/22/17 01/08/18 History Ferrous Sulfate 134mg 134 mg PO DAILY 08/29/17 01/08/18 History Atorvastatin [Lipitor] 20 mg PO HS 09/28/17 01/08/18 History Glucosam/Angel Luis-Msm1/C/Emeka/Bosw 3 tab PO DAILY 12/23/17 01/08/18 History [Glucosamine-Chondroitin Tablet] Allergies Allergy/AdvReac Type Severity Reaction Status Date / Time No Known Allergies Allergy Verified 01/08/18 20:16 Surgical - Exam Osteopathic Statement: *. No significant issues noted on an osteopathic structural exam other than those noted in the History and Physical/Consult. Vital Signs Temp Pulse Resp BP Pulse Ox 97.8 F 133 H 18 204/104 97 01/08/18 14:43 01/08/18 14:43 01/08/18 14:43 01/08/18 14:43 01/08/18 14:43 - General well developed, well nourished, no distress, obese - Eyes normal ocular movement, no icteric - ENT no hearing loss, no congestion - Neck no masses, no bruits, trachea midline - Respiratory normal expansion, normal respiratory effort, clear to auscultation - Cardiovascular Rhythm: regular - Abdomen Abdomen: soft, non tender, no guarding, no rigid, no rebound - Integumentary no rash, no abnormal pigmentation - Neurologic no disoriented, no combative - Musculoskeletal normal gait, normal posture - Psychiatric This is a poor historian. oriented to time, oriented to person, oriented to place, speech is normal Results - Labs 01/08/18 15:35 01/08/18 15:35 Abnormal Lab Results - Last 24 Hours (Table) 01/08/18 01/08/18 01/08/18 Range/Units 15:35 15:35 16:01 WBC 14.5 H (3.8-10.6) k/uL RBC 3.88 L (4.30-5.90) m/uL Hgb 12.2 L (13.0-17.5) gm/dL Hct 38.0 L (39.0-53.0) % Neutrophils # 12.8 H (1.3-7.7) k/uL Lymphocytes # 0.8 L (1.0-4.8) k/uL Potassium 5.6 H (3.5-5.1) mmol/L Chloride 108 H (98-107) mmol/L Carbon Dioxide 13 L (22-30) mmol/L BUN 58 H (9-20) mg/dL Creatinine 2.28 H (0.66-1.25) mg/dL Glucose 171 H (74-99) mg/dL POC Glucose (mg/dL) (75-99) mg/dL Urine Protein 2+ H (Negative) Urine Ketones 1+ H (Negative) Urine Blood Large H (Negative) Ur Leukocyte Esterase Large H (Negative) Urine RBC >182 H (0-5) /hpf Urine WBC >182 H (0-5) /hpf Urine WBC Clumps Many H (None) /hpf 01/09/18 01/09/18 Range/Units 07:07 11:55 WBC (3.8-10.6) k/uL RBC (4.30-5.90) m/uL Hgb (13.0-17.5) gm/dL Hct (39.0-53.0) % Neutrophils # (1.3-7.7) k/uL Lymphocytes # (1.0-4.8) k/uL Potassium (3.5-5.1) mmol/L Chloride (98-107) mmol/L Carbon Dioxide (22-30) mmol/L BUN (9-20) mg/dL Creatinine (0.66-1.25) mg/dL Glucose (74-99) mg/dL POC Glucose (mg/dL) 137 H 156 H (75-99) mg/dL Urine Protein (Negative) Urine Ketones (Negative) Urine Blood (Negative) Ur Leukocyte Esterase (Negative) Urine RBC (0-5) /hpf Urine WBC (0-5) /hpf Urine WBC Clumps (None) /hpf Microbiology - Last 24 Hours (Table) 01/08/18 16:01 Urine Culture - Preliminary Urine,Voided Diabetes panel 01/08/18 Range/Units 15:35 Sodium 139 (137-145) mmol/L Potassium 5.6 H (3.5-5.1) mmol/L Chloride 108 H (98-107) mmol/L Carbon Dioxide 13 L (22-30) mmol/L BUN 58 H (9-20) mg/dL Creatinine 2.28 H (0.66-1.25) mg/dL Glucose 171 H (74-99) mg/dL Calcium 10.1 (8.4-10.2) mg/dL AST 35 (17-59) U/L ALT 31 (21-72) U/L Alkaline Phosphatase 86 (38-126) U/L Total Protein 7.3 (6.3-8.2) g/dL Albumin 4.3 (3.5-5.0) g/dL Calcium panel 01/08/18 Range/Units 15:35 Calcium 10.1 (8.4-10.2) mg/dL Albumin 4.3 (3.5-5.0) g/dL Pituitary panel 01/08/18 Range/Units 15:35 Sodium 139 (137-145) mmol/L Potassium 5.6 H (3.5-5.1) mmol/L Chloride 108 H (98-107) mmol/L Carbon Dioxide 13 L (22-30) mmol/L BUN 58 H (9-20) mg/dL Creatinine 2.28 H (0.66-1.25) mg/dL Glucose 171 H (74-99) mg/dL Calcium 10.1 (8.4-10.2) mg/dL Adrenal panel 01/08/18 Range/Units 15:35 Sodium 139 (137-145) mmol/L Potassium 5.6 H (3.5-5.1) mmol/L Chloride 108 H (98-107) mmol/L Carbon Dioxide 13 L (22-30) mmol/L BUN 58 H (9-20) mg/dL Creatinine 2.28 H (0.66-1.25) mg/dL Glucose 171 H (74-99) mg/dL Calcium 10.1 (8.4-10.2) mg/dL Total Bilirubin 0.6 (0.2-1.3) mg/dL AST 35 (17-59) U/L ALT 31 (21-72) U/L Alkaline Phosphatase 86 (38-126) U/L Total Protein 7.3 (6.3-8.2) g/dL Albumin 4.3 (3.5-5.0) g/dL - Imaging CT scan - abdomen: pending (CT of the abdomen shows no evidence of rupture of his abdominal aortic aneurysm. There appears to be an increase in size of several millimeters. A small solid renal nodule is also noted) Assessment and Plan (1) Abdominal aortic aneurysm (AAA) greater than 5.5 cm in diameter in male Current Visit: Yes Status: Acute Code(s): I71.4 - ABDOMINAL AORTIC ANEURYSM , WITHOUT RUPTURE SNOMED Code(s): 291144450 Plan: This abdominal aortic aneurysm appears to have slightly increased in size, in spite of the aortic stent graft. There is no current sign of rupture. His renal dysfunction makes him a poor candidate for any kind of contrasted study to assess for leak. His general medical status makes him a poor candidate for any major procedures. We will continue observation for now. We will have him see vascular surgery as an outpatient.
--- NOTE | 2018-01-09 15:26 | P.HPIM ---
History of Present Illness H&P Date: 01/09/18 Chief Complaint: hematuria 77 years old male patient of Dr. Judge with past medical history of hypertension, hypertensive cardiovascular disease, hyperlipidemia, type 2 diabetes, history of prostate cancer status post prostatectomy 2003 followed by radiation therapy in 2009 she followed by 6 months Lupron injections in December [address] Valentin, gastric esophageal reflux disease, osteoarthritis, chronic low back pain with history of L1-L2 and L5-S1 laminectomy with fusion as well as T7-T8 laminectomy done by Dr. Chacon in 2015 comes in with gross hematuria with passing of blood clots that started 2 days ago. Patient denies any burning of micturition but does document increased frequency and urgency of urination. He denies any history of flank pain or abdominal pain. Patient denies any change in bowel habits. Denies any nausea or vomiting. 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 Restless surgery within consulted. Hernandez catheter was placed in the ER which was clotted and was finally removed. Patient was evaluated by Dr. Rosas and a renal ultrasound ordered ordered. Review of Systems Constitutional: Denies chills, Denies fever, Denies lethargy, Denies malaise, Denies poor appetite, Denies weakness, Denies weight loss Eyes: denies decreased vision, denies diplopia, denies discharge, denies pain Ears: deny: decreased hearing Ears, nose, mouth and throat: Denies dental pain, Denies headache, Denies nasal discharge, Denies nose pain Cardiovascular: Denies chest pain, Denies decreased exercise tolerance, Denies edema, Denies high blood pressure, Denies irregular heart beat, Denies palpitations, Denies paroxysmal nocturnal dyspnea, Denies rapid heart beat, Denies shortness of breath Respiratory: Denies congestion, Denies cough, Denies cough with sputum, Denies dyspnea, Denies home oxygen, Denies wheezing Gastrointestinal: Denies abdominal pain, Denies change in bowel habits, Denies coffee ground emesis, Denies early satiety, Denies excessive gas, Denies heartburn, Denies hematemesis, Denies hematochezia, Denies loss of appetite, Denies nausea, Denies vomiting Genitourinary: Denies dysuria, Denies flank pain, Denies kidney stones, Denies menorrhagia, endorses urgency, endorses urinary frequency endorses hematuria Musculoskeletal: Denies gait dysfunction, Denies limitation of motion, Denies morning stiffness, Denies muscle cramps endorses back pain Integumentary: Denies rash, Denies wounds, Denies brittle nails, Denies change in hair/nails, Denies darkening of skin Neurological: Denies balance difficulties, Denies change in speech, Denies double vision, Denies gait dysfunction, Denies loss of vision, Denies motor disturbance, Denies numbness, Denies paralysis, Denies paresthesias, Denies seizures Psychiatric: Denies anxiety, Denies depression Endocrine: Denies excessive sweating, Denies excessive thirst, Denies high blood sugars, Denies palpitations Hematologic/Lymphatic: Denies easy bruising, Denies lymphadenopathy 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,Hx prostate cancer;Chronic back pain; Chronic anemia, peptic ulcer disease, CVA in June 2015 and MRI of the brain showed increased signal within the cortex of the right frontal and frontoparietal lobes consistent with infarcts., aortic aneurysm with previous insertion of an aortic stent, carotid artery stenosis, History of Any Multi-Drug Resistant Organisms: MRSA Date of last positivie culture/infection: 2011 MDRO Source:: abdominal incision Past Surgical History: Back Surgery, Bladder Surgery, Cholecystectomy, Hernia Repair, Prostate Surgery Additional Past Surgical History / Comment(s): Prostatectomy, bladder suspension surgery, and the vascular stenting of an aortic aneurysm, hemorrhoidectomy, bilateral cataract surgery, back surgery X4 (5-4-16 LAMENECTOMY) Past Anesthesia/Blood Transfusion Reactions: No Reported Reaction Past Psychological History: No Psychological Hx Reported Additional Psychological History / Comment(s): . Smoking Status: Former smoker Past Alcohol Use History: None Reported Additional Past Alcohol Use History / Comment(s): Pt states he started smoking in 1955 and quit in 1987. SMOKED 2 PPD. , SMOKED FOR 33 YEARS Past Drug Use History: None Reported - Past Family History Brother(s) Family Medical History: CVA/TIA Son(s) Family Medical History: No Reported History Father Family Medical History: Cancer Additional Family Medical History / Comment(s): BRAIN Mother Family Medical History: Cancer Additional Family Medical History / Comment(s): "BLOOD CANCER" Medications and Allergies Home Medications Medication Instructions Recorded Confirmed Type Atenolol [Tenormin] 25 mg PO BID 10/06/13 01/08/18 History Benazepril HCl 20 mg PO BID 10/06/13 01/08/18 History amLODIPine [Norvasc] 5 mg PO BID 10/06/13 01/08/18 History metFORMIN HCL 1,000 mg PO AC-SUPPER 10/06/13 01/08/18 History Vitamin B Complex 1 cap PO DAILY 05/02/14 01/08/18 History Aspirin 325 mg PO DAILY #30 tab 07/15/15 01/08/18 Rx Ascorbic Acid [Vitamin C] 1,000 mg PO DAILY 10/13/15 01/08/18 History Cholecalciferol [Vitamin D3] 1,000 unit PO DAILY 10/13/15 01/08/18 History Indapamide 2.5 mg PO DAILY 10/13/15 01/08/18 History Omeprazole [PriLOSEC] 20 mg PO BID 10/13/15 01/08/18 History Ubidecarenone [Co Q-10] 100 mg PO DAILY 10/13/15 01/08/18 History Calcitonin Nasal [Fortical 1 spray EA NOSTRIL DAILY 10/22/15 01/08/18 History (Miacalcin)] Psyllium Husk [Metamucil] 0.4 gm PO DAILY PRN 03/22/17 01/08/18 History Ferrous Sulfate 134mg 134 mg PO DAILY 08/29/17 01/08/18 History Atorvastatin [Lipitor] 20 mg PO HS 09/28/17 01/08/18 History Glucosam/Angel Luis-Msm1/C/Emeka/Bosw 3 tab PO DAILY 12/23/17 01/08/18 History [Glucosamine-Chondroitin Tablet] Allergies Allergy/AdvReac Type Severity Reaction Status Date / Time No Known Allergies Allergy Verified 01/08/18 20:16 Physical Exam Vitals: Vital Signs Temp Pulse Pulse Resp BP BP BP 01/09/18 12:38 108 H 115/71 176/83 01/09/18 07:00 97.9 F 107 H 18 119/81 01/09/18 01:30 127 H 01/08/18 22:39 97.6 F 127 H 16 115/72 01/08/18 22:00 97.7 F 78 18 132/84 01/08/18 19:27 98 18 135/95 01/08/18 17:55 110 H 17 130/97 01/08/18 15:11 98 01/08/18 15:10 18 138/111 Pulse Ox 01/09/18 12:38 01/09/18 07:00 98 01/09/18 01:30 01/08/18 22:39 97 01/08/18 22:00 98 01/08/18 19:27 98 01/08/18 17:55 98 01/08/18 15:11 01/08/18 15:10 97 Intake and Output 01/09/18 01/09/18 01/09/18 06:59 14:59 22:59 Intake Total 100 Balance 100 Intake: Intake, IV Titration 100 Amount cefTRIAXone 2,000 mg In 100 Sodium Chloride 0.9% 100 ml @ 100 mls/hr IVPB Q24HR [facility] [place] Rx#:[id number] Other: Voiding Method Toilet Diaper # Voids 6 1 - Constitutional General appearance: cooperative, no acute distress, obese - EENT Eyes: anicteric sclerae, PERRLA, normal appearance ENT: hearing grossly normal - Neck Neck: no lymphadenopathy, normal ROM, no other, no rigidity, no stridor, no thyromegaly - Respiratory Respiratory: bilateral: CTA, negative: diminished, dullness, rales, rhonchi - Cardiovascular Rhythm: regular Heart sounds: normal: S1, S2 Abnormal Heart Sounds: no systolic murmur, no diastolic murmur, no rub, no S3 Gallop - Gastrointestinal General gastrointestinal: normal bowel sounds, soft and mildly tender in the pelvic area on deep palpation - Integumentary Integumentary: no rash - Neurologic Neurologic: CNII-XII intact - Musculoskeletal Musculoskeletal: gait normal, strength equal bilaterally - Psychiatric Psychiatric: A&O x's 3, appropriate affect Results CBC & Chem 7: 01/08/18 15:35 01/08/18 15:35 Labs: Abnormal Lab Results - Last 24 Hours (Table) 1101/08/18 01/08/18 Range/Units 15:35 15:35 16:01 WBC 14.5 H (3.8-10.6) k/uL RBC 3.88 L (4.30-5.90) m/uL Hgb 12.2 L (13.0-17.5) gm/dL Hct 38.0 L (39.0-53.0) % Neutrophils # 12.8 H (1.3-7.7) k/uL Lymphocytes # 0.8 L (1.0-4.8) k/uL Potassium 5.6 H (3.5-5.1) mmol/L Chloride 108 H (98-107) mmol/L Carbon Dioxide 13 L (22-30) mmol/L BUN 58 H (9-20) mg/dL Creatinine 2.28 H (0.66-1.25) mg/dL Glucose 171 H (74-99) mg/dL POC Glucose (mg/dL) (75-99) mg/dL Urine Protein 2+ H (Negative) Urine Ketones 1+ H (Negative) Urine Blood Large H (Negative) Ur Leukocyte Esterase Large H (Negative) Urine RBC >182 H (0-5) /hpf Urine WBC >182 H (0-5) /hpf Urine WBC Clumps Many H (None) /hpf 01/09/18 01/09/18 Range/Units 07:07 11:55 WBC (3.8-10.6) k/uL RBC (4.30-5.90) m/uL Hgb (13.0-17.5) gm/dL Hct (39.0-53.0) % Neutrophils # (1.3-7.7) k/uL Lymphocytes # (1.0-4.8) k/uL Potassium (3.5-5.1) mmol/L Chloride (98-107) mmol/L Carbon Dioxide (22-30) mmol/L BUN (9-20) mg/dL Creatinine (0.66-1.25) mg/dL Glucose (74-99) mg/dL POC Glucose (mg/dL) 137 H 156 H (75-99) mg/dL Urine Protein (Negative) Urine Ketones (Negative) Urine Blood (Negative) Ur Leukocyte Esterase (Negative) Urine RBC (0-5) /hpf Urine WBC (0-5) /hpf Urine WBC Clumps (None) /hpf Microbiology - Last 24 Hours (Table) 01/08/18 16:01 Urine Culture - Preliminary Urine,Voided Thrombosis Risk Factor Assmnt - DVT/VTE Prophylaxis DVT/VTE Prophylaxis: Mechanical Prophylaxis ordered Assessment and Plan Plan: #1 acute hematuria with previous history of prostatectomy status post radiation and Lupron injections renal ultrasound ordered to evaluate renal mass with possible internal hemorrhage. CBC every 6. Fall catheter disease discontinued for concern of clotting. Monitor I&O's. Straight cath if needed. Dr. Valentin consulted. Possible cystoscopy if no improvement in hematuria. UA concerning for increased WBC. continue ceftriaxone. #[address] Stewart consulted. No further studies recommended due to patient's poor renal function and poor surgical candidate. Maintain systolic less than 140. Atenolol increased to 50 mg by mouth twice a day #3 urinary tract infection continue ceftriaxone. Maintain urine input and output. #4 hypertension atenolol increased to 50 twice a day continue Norvasc at 5 mg twice a day #5 acute kidney injury on chronic kidney disease stage III. Baseline creatinine 1.29-1.4 current creatinine 2.28. Hold indapamide and lisinopril. Status post 2 L IV fluid continue fluids at 75 mL/h monitor I&O's. Avoid nephrotoxic agents. #6 hyperlipidemia continue atorvastatin #7 DVT prophylaxis with mechanical prophylaxis SCDs #8 disposition patient may need inpatient 1-2 nights #9 CODE STATUS full code
[2018-01-09] MEDS ORDERED: ATENOLOL 25 MG TAB PO ONE (15:30)
[2018-01-09] MEDS: PSYLLIUM HUSK 100% 6 GM PACKET PO PRN (16:21)
[2018-01-09 16:32] LABS: Hemoglobin A1C 6.3 % (4.0-6.0)
[2018-01-09] MEDS ORDERED: SODIUM POLYSTYRENE SULFONATE 15 GM/60 ML BOTTLE PO ONE (17:05)
[2018-01-09 17:17] LABS: Glucose,Whole Blood 121 mg/dL (75-99)
[2018-01-09] MEDS: ATORVASTATIN 20 MG TAB PO SCH (20:02)
[2018-01-09] MEDS: ATENOLOL 50 MG TAB PO SCH (20:02)
[2018-01-09 20:06] VITALS: RESP 16
[2018-01-09 20:35] LABS: Glucose,Whole Blood 128 mg/dL (75-99)
[2018-01-10] MEDS: HYDROcodone/APAP 5-325MG 1 EACH TAB PO PRN ×2 (00:54→08:18)
[2018-01-10] MEDS: PSYLLIUM HUSK 100% 6 GM PACKET PO PRN (00:56)
[2018-01-10] MEDS: HYDROmorphone 1 MG/ML 1 ML SYRINGE IVP PRN ×2 (04:02→09:27)
[2018-01-10 06:40] LABS: Basophils % (A) 0 %; Eosinophils # (A) 0.2 k/uL (0-0.7); Eosinophils % (A) 2 %; HCT 33.1 % (39.0-53.0); HGB 10.4 gm/dL (13.0-17.5); Lymphocytes % (A) 10 %; MCH 31.8 pg (25.0-35.0); MCHC 31.4 g/dL (31.0-37.0); MCV 101.4 fL (80.0-100.0); Macrocytosis Slight; Mean Platelet Volume 8.8; Monocytes # (A) 0.6 k/uL (0-1.0); Monocytes % (A) 6 %; Neutrophils # (A) 7.9 k/uL (1.3-7.7); Neutrophils % (A) 80 %; Platelet Count 286 k/uL (150-450); RBC 3.27 m/uL (4.30-5.90); RDW 13.1 % (11.5-15.5)
[2018-01-10 06:48] LABS: Albumin 3.6 g/dL (3.5-5.0); Calcium 9.5 mg/dL (8.4-10.2); Potassium 4.8 mmol/L (3.5-5.1); Total Bilirubin 0.4 mg/dL (0.2-1.3); Total Protein 6.3 g/dL (6.3-8.2)
[2018-01-10 07:10] LABS: Glucose,Whole Blood 135 mg/dL (75-99)
--- NOTE | 2018-01-10 07:25 | P.PN ---
Subjective Progress Note Date: 01/10/18 The patient is in the hospital gross hematuria. This appears to be due to hemorrhagic cystitis. He is growing bacteria in his urine culture. The bleeding has decreased. His hemoglobin was 10.4. The computed tomography scan and renal ultrasound suggests a solid renal mass in the upper pole of about 2-1/ 2 cm. I will review with radiology before making further recommendations. This can be dealt with secondarily. He has an abdominal aneurysm that apparently is not treatable which may affect how I would approach this renal mass. Objective - Vital Signs Vital signs: Vital Signs Temp 98.1 F 01/10/18 00:35 Pulse 84 01/10/18 00:35 Resp 16 01/10/18 00:35 BP 91/59 01/10/18 00:35 Pulse Ox 98 01/10/18 00:35 Intake & Output 01/09/18 01/10/18 01/10/18 18:59 06:59 18:59 Intake Total 100 850 Balance 100 850 Intake: Intake, IV Titration 100 850 Amount Sodium Chloride 0.9% 1, 850 000 ml @ 75 mls/hr IV . [id number] [facility] Rx#:[id number] cefTRIAXone 2,000 mg In 100 Sodium Chloride 0.9% 100 ml @ 100 mls/hr IVPB Q24HR [facility] Rx#:[id number] Other: Voiding Method Toilet Urinal Diaper # Voids 1 5 - Labs CBC & Chem 7: 01/10/18 06:06 01/10/18 06:06 Labs: Abnormal Lab Results - Last 24 Hours (Table) 01/08/18 01/09/18 01/09/18 Range/Units 15:35 11:55 17:15 RBC (4.30-5.90) m/uL Hgb (13.0-17.5) gm/dL Hct (39.0-53.0) % MCV (80.0-100.0) fL Neutrophils # (1.3-7.7) k/uL Chloride (98-107) mmol/L Carbon Dioxide (22-30) mmol/L BUN (9-20) mg/dL Creatinine (0.66-1.25) mg/dL Glucose (74-99) mg/dL POC Glucose (mg/dL) 156 H 121 H (75-99) mg/dL Hemoglobin A1c 6.3 H (4.0-6.0) % 01/09/18 01/10/18 01/10/18 Range/Units 20:34 06:06 06:06 RBC 3.27 L (4.30-5.90) m/uL Hgb 10.4 L (13.0-17.5) gm/dL Hct 33.1 L (39.0-53.0) % MCV 101.4 H (80.0-100.0) fL Neutrophils # 7.9 H (1.3-7.7) k/uL Chloride 108 H (98-107) mmol/L Carbon Dioxide 20 L (22-30) mmol/L BUN 44 H (9-20) mg/dL Creatinine 1.33 H (0.66-1.25) mg/dL Glucose 125 H (74-99) mg/dL POC Glucose (mg/dL) 128 H (75-99) mg/dL Hemoglobin A1c (4.0-6.0) % 01/10/18 Range/Units 06:59 RBC (4.30-5.90) m/uL Hgb (13.0-17.5) gm/dL Hct (39.0-53.0) % MCV (80.0-100.0) fL Neutrophils # (1.3-7.7) k/uL Chloride (98-107) mmol/L Carbon Dioxide (22-30) mmol/L BUN (9-20) mg/dL Creatinine (0.66-1.25) mg/dL Glucose (74-99) mg/dL POC Glucose (mg/dL) 135 H (75-99) mg/dL Hemoglobin A1c (4.0-6.0) % Microbiology - Last 24 Hours (Table) 01/08/18 18:50 Blood Culture - Preliminary Blood No Growth after 24 hours 01/08/18 16:01 Urine Culture - Preliminary Urine,Voided Gram Neg Bacilli
[2018-01-10] MEDS: CALCITONIN 200 USP/1 NASAL SPRAY 3.7ML BTL NASAL SCH (08:17)
[2018-01-10] MEDS: INSULIN ASPART 100 UNIT/ML 1 ML 10 ML VIAL SQ SCH ×4 (08:17→21:47)
[2018-01-10] MEDS: cefTRIAXone 2,000 MG in SODIUM CHLORIDE 0.9% 100 ML IVPB SCH (08:18)
[2018-01-10] MEDS: PANTOPRAZOLE 40 MG TABLET PO SCH (08:18)
[2018-01-10] MEDS: ATENOLOL 50 MG TAB PO SCH ×2 (08:18→20:11)
[2018-01-10] MEDS: amLODIPine 5 MG TAB PO SCH ×2 (08:18→20:11)
[2018-01-10] MEDS: SODIUM CHLORIDE 0.9% 1,000 ML IV SCH (08:21)
[2018-01-10] MEDS ORDERED: FERROUS SULFATE 134 MG PO SCH (09:00)
[2018-01-10] MEDS ORDERED: LACTULOSE 20 GM/30 ML CUP PO ONE (10:15)
[2018-01-10 11:07] LABS: Glucose,Whole Blood 144 mg/dL (75-99)
--- NOTE | 2018-01-10 11:28 | P.PN ---
Subjective Progress Note Date: 01/10/18 77 years old male patient of Dr. Judge with past medical history of hypertension, hypertensive cardiovascular disease, hyperlipidemia, type 2 diabetes, history of prostate cancer status post prostatectomy 2003 followed by radiation therapy in 2009 she followed by 6 months Lupron injections in December [address] Valentin, gastric esophageal reflux disease, osteoarthritis, chronic low back pain with history of L1-L2 and L5-S1 laminectomy with fusion as well as T7-T8 laminectomy done by Dr. Chacon in 2015 comes in with gross hematuria with passing of blood clots that started 2 days ago. Patient denies any burning of micturition but does document increased frequency and urgency of urination. He denies any history of flank pain or abdominal pain. Patient denies any change in bowel habits. Denies any nausea or vomiting. 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 Restless surgery within consulted. Hernandez catheter was placed in the ER which was clotted and was finally removed. Patient was evaluated by Dr. Price and a renal ultrasound ordered ordered. 01/10: Patient has been afebrile and vital signs are stable. Blood pressure during the night was on the low side and high this morning. Atenolol was increased yesterday. We will monitor. Hemoglobin is 10.4, BUN 44 and creatinine 1.33. Blood sugars are running between 121 and 135. Urine culture is showing gram-negative bacilli and blood culture showing no growth at 24 hours. Patient has been seen by Dr. Lorenzana with no plan for any surgical intervention at this time. Patient is no longer having clots but urine continues to be bloody. Patient is complaining of right hip pain that is shooting. He has had injections done in the past. Lidocaine patch ordered. Patient also complains of no bowel movement since admission. He has received Metamucil 2 and at the time of admission received a dose of Kayexalate. One dose of lactulose will be ordered. Positive will be ordered if necessary. Anticipate discharge tomorrow. Review Of Systems: Constitutional: No fever, no chills, no night sweats. No weight change. No weakness, fatigue or lethargy. No daytime sleepiness. EENT: No headache. No blurred vision or double vision, no loss of vision. No loss of Hearing, no ringing in the ears, no dizziness. No nasal drainage or congestion. No epistaxis. No sore throat. Lungs: No shortness of breath, cough, no sputum production. No wheezing. Cardiovascular: No chest pain, no lower extremity edema. No palpitations. No paroxysmal nocturnal dyspnea. No orthopnea. No lightheadedness or dizziness. No syncopal episodes. Abdominal: No abdominal pain. No nausea, vomiting. No diarrhea. No constipation. No bloody or tarry stools.. No loss of appetite. Genitourinary: No dysuria, increased frequency, urgency. No urinary retention. Complains of hematuria. Musculoskeletal: No myalgias. No muscle weakness, no gait dysfunction, no frequent falls. No back pain. No neck pain. Integumentary: No wounds, no lesions. No rash or pruritus. No unusual bruising. No change in hair or nails. Neurologic: No aphasia. No facial droop. No change in mentation. No head injury. No headache. No paralysis. No paresthesia. Psychiatric: No depression. No anxiety. No mood swings. Endocrine: No abnormal blood sugars. No weight change. No excessive sweating or thirst. No cold intolerance. No weight change. Objective - Vital Signs Vital signs: Vital Signs Temp 97.9 F 01/10/18 07:30 Pulse 83 01/10/18 07:30 Resp 16 01/10/18 07:30 BP 141/77 01/10/18 07:30 Pulse Ox 97 01/10/18 07:30 Intake & Output 01/09/18 01/10/18 01/10/18 18:59 06:59 18:59 Intake Total 100 850 120 Balance 100 850 120 Intake: Intake, IV Titration 100 850 Amount Sodium Chloride 0.9% 1, 850 000 ml @ 75 mls/hr IV . [id number] LOS Rx#:[id number] cefTRIAXone 2,000 mg In 100 Sodium Chloride 0.9% 100 ml @ 100 mls/hr IVPB Q24HR LOS Rx#:[id number] Oral 120 Other: Voiding Method Toilet Urinal Diaper # Voids 1 5 - Exam General appearance: cooperative, no acute distress, obese. Patient is in bed and shows no acute distress - EENT Eyes: anicteric sclerae, PERRLA, normal appearance ENT: hearing grossly normal - Neck Neck: no lymphadenopathy, normal ROM, no other, no rigidity, no stridor, no thyromegaly - Respiratory Respiratory: bilateral: CTA, negative: diminished, dullness, rales, rhonchi - Cardiovascular Rhythm: regular Heart sounds: normal: S1, S2 Abnormal Heart Sounds: no systolic murmur, no diastolic murmur, no rub, no S3 Gallop - Gastrointestinal General gastrointestinal: normal bowel sounds, soft and mildly tender in the pelvic area on deep palpation - Integumentary Integumentary: no rash - Neurologic Neurologic: CNII-XII intact - Musculoskeletal Musculoskeletal: gait normal, strength equal bilaterally - Psychiatric Psychiatric: A&O x's 3, appropriate affect - Labs CBC & Chem 7: 01/10/18 06:06 01/10/18 06:06 Labs: Abnormal Lab Results - Last 24 Hours (Table) 01/08/18 01/09/18 01/09/18 Range/Units 15:35 11:55 17:15 RBC (4.30-5.90) m/uL Hgb (13.0-17.5) gm/dL Hct (39.0-53.0) % MCV (80.0-100.0) fL Neutrophils # (1.3-7.7) k/uL Chloride (98-107) mmol/L Carbon Dioxide (22-30) mmol/L BUN (9-20) mg/dL Creatinine (0.66-1.25) mg/dL Glucose (74-99) mg/dL POC Glucose (mg/dL) 156 H 121 H (75-99) mg/dL Hemoglobin A1c 6.3 H (4.0-6.0) % 01/09/18 01/10/18 01/10/18 Range/Units 20:34 06:06 06:06 RBC 3.27 L (4.30-5.90) m/uL Hgb 10.4 L (13.0-17.5) gm/dL Hct 33.1 L (39.0-53.0) % MCV 101.4 H (80.0-100.0) fL Neutrophils # 7.9 H (1.3-7.7) k/uL Chloride 108 H (98-107) mmol/L Carbon Dioxide 20 L (22-30) mmol/L BUN 44 H (9-20) mg/dL Creatinine 1.33 H (0.66-1.25) mg/dL Glucose 125 H (74-99) mg/dL POC Glucose (mg/dL) 128 H (75-99) mg/dL Hemoglobin A1c (4.0-6.0) % 01/10/18 Range/Units 06:59 RBC (4.30-5.90) m/uL Hgb (13.0-17.5) gm/dL Hct (39.0-53.0) % MCV (80.0-100.0) fL Neutrophils # (1.3-7.7) k/uL Chloride (98-107) mmol/L Carbon Dioxide (22-30) mmol/L BUN (9-20) mg/dL Creatinine (0.66-1.25) mg/dL Glucose (74-99) mg/dL POC Glucose (mg/dL) 135 H (75-99) mg/dL Hemoglobin A1c (4.0-6.0) % Microbiology - Last 24 Hours (Table) 01/08/18 18:50 Blood Culture - Preliminary Blood No Growth after 24 hours 01/08/18 16:01 Urine Culture - Preliminary Urine,Voided Gram Neg Bacilli Assessment and Plan Plan: #1 acute hematuria with previous history of prostatectomy status post radiation and Lupron injections renal ultrasound ordered to evaluate renal mass with possible internal hemorrhage. CBC every 6. Fall catheter disease discontinued for concern of clotting. Monitor I&O's. Straight cath if needed. Dr. Valentin consulted. No plan for surgical intervention, continue ceftriaxone. #[address] Stewart consulted. No further studies recommended due to patient's poor renal function and poor surgical candidate. Maintain systolic less than 140. Atenolol increased to 50 mg by mouth twice a day #3 urinary tract infection continue ceftriaxone. Maintain urine input and output. #4 hypertension atenolol increased to 50 twice a day continue Norvasc at 5 mg twice a day #5 acute kidney injury on chronic kidney disease stage III. Baseline creatinine 1.29-1.4 current creatinine 2.28. Hold indapamide and lisinopril. Status post 2 L IV fluid continue fluids at 75 mL/h monitor I&O's. Avoid nephrotoxic agents. #6 hyperlipidemia continue atorvastatin #7 DVT prophylaxis with mechanical prophylaxis SCDs #8 CODE STATUS full code Discharge plan: Return home Impression and plan of care have been directed as dictated by the signing physician. Krysta Castro nurse practitioner acting as scribe for signing physician.
[2018-01-10] MEDS ORDERED: LIDOCAINE 5% PATCH TOPICAL SCH (12:00)
[2018-01-10 17:09] LABS: Glucose,Whole Blood 121 mg/dL (75-99)
[2018-01-10] MEDS: ATORVASTATIN 20 MG TAB PO SCH (20:11)
[2018-01-10 21:08] LABS: Glucose,Whole Blood 115 mg/dL (75-99)
[2018-01-11] MEDS: SODIUM CHLORIDE 0.9% 1,000 ML IV SCH ×2 (01:36→08:56)
[2018-01-11] MEDS: HYDROcodone/APAP 5-325MG 1 EACH TAB PO PRN (05:40)
[2018-01-11 06:54] LABS: Glucose,Whole Blood 130 mg/dL (75-99)
[2018-01-11] MEDS: INSULIN ASPART 100 UNIT/ML 1 ML 10 ML VIAL SQ SCH (07:58)
[2018-01-11 08:30] LABS: Albumin 3.7 g/dL (3.5-5.0); Calcium 9.6 mg/dL (8.4-10.2); Total Bilirubin 0.6 mg/dL (0.2-1.3); Total Protein 6.4 g/dL (6.3-8.2)
[2018-01-11 08:35] LABS: Potassium 4.6 mmol/L (3.5-5.1)
[2018-01-11 08:41] LABS: Basophils % (A) 0 %; Eosinophils # (A) 0.2 k/uL (0-0.7); Eosinophils % (A) 2 %; HCT 33.2 % (39.0-53.0); HGB 10.6 gm/dL (13.0-17.5); Lymphocytes # (A) 0.9 k/uL (1.0-4.8); Lymphocytes % (A) 9 %; MCH 31.6 pg (25.0-35.0); MCHC 31.9 g/dL (31.0-37.0); MCV 98.9 fL (80.0-100.0); Mean Platelet Volume 7.7; Monocytes # (A) 0.6 k/uL (0-1.0); Monocytes % (A) 6 %; Neutrophils # (A) 8.4 k/uL (1.3-7.7); Neutrophils % (A) 81 %; Platelet Count 286 k/uL (150-450); RBC 3.36 m/uL (4.30-5.90); WBC 10.4 k/uL (3.8-10.6)
[2018-01-11] MEDS: cefTRIAXone 2,000 MG in SODIUM CHLORIDE 0.9% 100 ML IVPB SCH (08:56)
[2018-01-11] MEDS: amLODIPine 5 MG TAB PO SCH (08:58)
[2018-01-11] MEDS: PANTOPRAZOLE 40 MG TABLET PO SCH (08:58)
[2018-01-11] MEDS: CALCITONIN 200 USP/1 NASAL SPRAY 3.7ML BTL NASAL SCH (08:58)
[2018-01-11] MEDS: ATENOLOL 50 MG TAB PO SCH (08:58)
[2018-01-11 09:17] VITALS: BP 168/68; PULSE 88; TEMP 97.6
[2018-01-11 11:02] LABS: Glucose,Whole Blood 116 mg/dL (75-99)
--- NOTE | 2018-01-11 11:53 | P.PN ---
Subjective Progress Note Date: 01/11/18 The patient is in the hospital for urinary tract infection, hematuria. The patient is being treated with appropriate antibiotics. The hematuria has subsided. He is being discharged home. He is also noticed to have a right renal mass on a computed tomography scan. The ultrasound did not truly clarify the status of this lesion. I spoke with the radiologist and we decided to proceed with an MRI to see if we can clarify the situation. He'll be seen in the office in 2 weeks. I'll arrange for MRI at that point in time. He will also undergo cystoscopy in the office. Objective - Vital Signs Vital signs: Vital Signs Temp 97.6 F 01/11/18 09:05 Pulse 88 01/11/18 09:05 Resp 16 01/11/18 09:05 BP 168/68 01/11/18 09:05 Pulse Ox 97 01/11/18 09:05 Intake & Output 01/10/18 01/11/18 01/11/18 18:59 06:59 18:59 Intake Total 1310 420 Output Total 2 Balance 1308 420 Weight 99.79 kg Intake: Intake, IV Titration 550 300 Amount Sodium Chloride 0.9% 1, 450 300 000 ml @ 75 mls/hr IV . [id number] LOS Rx#:[id number] cefTRIAXone 2,000 mg In 100 Sodium Chloride 0.9% 100 ml @ 100 mls/hr IVPB Q24HR LOS Rx#:[id number] Oral 760 120 Output: Urine/Stool Mix 2 Other: Voiding Method Toilet Urinal Diaper # Voids 5 2 - Labs CBC & Chem 7: 01/11/18 07:05 01/11/18 07:05 Labs: Abnormal Lab Results - Last 24 Hours (Table) 01/10/18 01/10/18 01/11/18 Range/Units 17:06 21:07 06:52 RBC (4.30-5.90) m/uL Hgb (13.0-17.5) gm/dL Hct (39.0-53.0) % Neutrophils # (1.3-7.7) k/uL Lymphocytes # (1.0-4.8) k/uL Chloride (98-107) mmol/L Carbon Dioxide (22-30) mmol/L BUN (9-20) mg/dL Glucose (74-99) mg/dL POC Glucose (mg/dL) 121 H 115 H 130 H (75-99) mg/dL 01/11/18 01/11/18 01/11/18 Range/Units 07:05 07:05 11:00 RBC 3.36 L (4.30-5.90) m/uL Hgb 10.6 L (13.0-17.5) gm/dL Hct 33.2 L (39.0-53.0) % Neutrophils # 8.4 H (1.3-7.7) k/uL Lymphocytes # 0.9 L (1.0-4.8) k/uL Chloride 112 H (98-107) mmol/L Carbon Dioxide 17 L (22-30) mmol/L BUN 37 H (9-20) mg/dL Glucose 120 H (74-99) mg/dL POC Glucose (mg/dL) 116 H (75-99) mg/dL Microbiology - Last 24 Hours (Table) 01/08/18 18:50 Blood Culture - Preliminary Blood No Growth after 48 hours 01/08/18 16:01 Urine Culture - Final Urine,Voided Escherichia coli
--- NOTE | 2018-01-11 12:01 | P.DS ---
Providers Date of admission: 01/08/18 22:00 Expected date of discharge: 01/11/18 Attending physician: Ray Bey MD Consults: 01/08/18 20:33 Consult Physician Stat Consulting Provider: Lamin Price Consult Reason/Comments: renal failure, hematuria Do you want consulting provider notified?: Yes Consult Physician Stat Consulting Provider: Herb Stewart Consult Reason/Comments: hematuria, renal failure Do you want consulting provider notified?: Yes Primary care physician: [facility]atan [facility]: 77 years old male patient of Dr. Judge with past medical history of hypertension, hypertensive cardiovascular disease, hyperlipidemia, type 2 diabetes, history of prostate cancer status post prostatectomy 2003 followed by radiation therapy in 2009 she followed by 6 months Lupron injections in December [address] Valentin, gastric esophageal reflux disease, osteoarthritis, chronic low back pain with history of L1-L2 and L5-S1 laminectomy with fusion as well as T7-T8 laminectomy done by Dr. Chacon in 2015 comes in with gross hematuria with passing of blood clots that started 2 days ago. Patient denies any burning of micturition but does document increased frequency and urgency of urination. He denies any history of flank pain or abdominal pain. Patient denies any change in bowel habits. Denies any nausea or vomiting. 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 Restless surgery within consulted. Hernandez catheter was placed in the ER which was clotted and was finally removed. Patient was evaluated by Dr. Price and a renal ultrasound ordered ordered. 01/10: Patient has been afebrile and vital signs are stable. Blood pressure during the night was on the low side and high this morning. Atenolol was increased yesterday. We will monitor. Hemoglobin is 10.4, BUN 44 and creatinine 1.33. Blood sugars are running between 121 and 135. Urine culture is showing gram-negative bacilli and blood culture showing no growth at 24 hours. Patient has been seen by Dr. Lorenzana with no plan for any surgical intervention at this time. Patient is no longer having clots but urine continues to be bloody. Patient is complaining of right hip pain that is shooting. He has had injections done in the past. Lidocaine patch ordered. Patient also complains of no bowel movement since admission. He has received Metamucil 2 and at the time of admission received a dose of Kayexalate. One dose of lactulose will be ordered. Positive will be ordered if necessary. Anticipate discharge tomorrow. 01/11: Patient has been seen by Dr. Stewart with plan to continue observation of his abdominal aortic aneurysm and is currently at 5.5 cm. BUN is 37 creatinine 1.17. Patient denies any complaints. He states he has had no blood in his urine. Regarding his hip pain, he used the lidocaine patch only briefly yesterday and heating pad. He denies any issues with this today. Patient will be discharged home today in stable condition. Discharge diagnoses: #1 acute hemorrhagic cystitis presenting with hematuria with previous history of prostatectomy status post radiation and Lupron injections #2 Infrarenal enlarging aneurysm #3 urinary tract infection #4 hypertension #5 acute kidney injury on chronic kidney disease stage III. #6 hyperlipidemia 7. Renal mass to be further evaluated by urology. Discharge plan: Return home Impression and plan of care have been directed as dictated by the signing physician. Krysta Castro nurse practitioner acting as scribe for signing physician. Patient Condition at Discharge: Good Plan - Discharge Summary New Discharge Prescriptions: New Atenolol [Tenormin] 50 mg PO BID #60 tab Cephalexin [Keflex] 500 mg PO Q8HR #12 cap Continue metFORMIN HCL 1,000 mg PO AC-SUPPER amLODIPine [Norvasc] 5 mg PO BID Vitamin B Complex 1 cap PO DAILY Aspirin 325 mg PO DAILY #30 tab Omeprazole [PriLOSEC] 20 mg PO BID Cholecalciferol [Vitamin D3] 1,000 unit PO DAILY Ubidecarenone [Co Q-10] 100 mg PO DAILY Ascorbic Acid [Vitamin C] 1,000 mg PO DAILY Calcitonin Nasal [Fortical (Miacalcin)] 1 spray EA NOSTRIL DAILY Psyllium Husk [Metamucil] 0.4 gm PO DAILY PRN PRN Reason: Constipation Ferrous Sulfate 134mg 134 mg PO DAILY Atorvastatin [Lipitor] 20 mg PO HS Glucosam/Angel Luis-Msm1/C/Emeka/Bosw [Glucosamine-Chondroitin Tablet] 3 tab PO DAILY Discontinued Benazepril HCl 20 mg PO BID Atenolol [Tenormin] 25 mg PO BID Indapamide 2.5 mg PO DAILY Discharge Medication List amLODIPine [Norvasc] 5 mg PO BID 10/06/13 [History] metFORMIN HCL 1,000 mg PO AC-SUPPER 10/06/13 [History] Vitamin B Complex 1 cap PO DAILY 05/02/14 [History] Aspirin 325 mg PO DAILY #30 tab 07/15/15 [Rx] Ascorbic Acid [Vitamin C] 1,000 mg PO DAILY 10/13/15 [History] Cholecalciferol [Vitamin D3] 1,000 unit PO DAILY 10/13/15 [History] Omeprazole [PriLOSEC] 20 mg PO BID 10/13/15 [History] Ubidecarenone [Co Q-10] 100 mg PO DAILY 10/13/15 [History] Calcitonin Nasal [Fortical (Miacalcin)] 1 spray EA NOSTRIL DAILY 10/22/15 [ History] Psyllium Husk [Metamucil] 0.4 gm PO DAILY PRN 03/22/17 [History] Ferrous Sulfate 134mg 134 mg PO DAILY 08/29/17 [History] Atorvastatin [Lipitor] 20 mg PO HS 09/28/17 [History] Glucosam/Angel Luis-Msm1/C/Emeka/Bosw [Glucosamine-Chondroitin Tablet] 3 tab PO DAILY 12/23/17 [History] Atenolol [Tenormin] 50 mg PO BID #60 tab 01/11/18 [Rx] Cephalexin [Keflex] 500 mg PO Q8HR #12 cap 01/11/18 [Rx] Follow up Appointment(s)/Referral(s): Yonatan Judge DO [Primary Care Provider] - 1 Week (Office will call with appt date and time. ) Leoncio Lorenzana MD [STAFF PHYSICIAN] - 2 Weeks (Office will call patient with appt date and time.) Patient Instructions/Handouts: Nonruptured Abdominal Aortic Aneurysm (DC), Hematuria (GEN) Discharge Disposition: HOME SELF-CARE
== END 2018-01-11 12:45 | disposition home or self-care (01) | DRG 690 ==
LOC: EC 14:41 → 4SSUR 22:00
PROVIDERS: ADMIT Internal Medicine; ATTEND Internal Medicine
DX: N30.01 Acute cystitis with hematuria (principal); N17.9 Acute kidney failure, unspecified; T82.330A Leakage of aortic (bifurcation) graft (replacement), initial encounter; E11.22 Type 2 diabetes mellitus with diabetic chronic kidney disease; D64.9 Anemia, unspecified; I65.29 Occlusion and stenosis of unspecified carotid artery; I13.10 Hypertensive heart and chronic kidney disease without heart failure, with stage 1 through stage 4 chronic kidney disease, or unspecified chronic kidney disease; N18.3 Chronic kidney disease, stage 3 (moderate); N28.89 Other specified disorders of kidney and ureter; Z66 Do not resuscitate; K21.9 Gastro-esophageal reflux disease without esophagitis; M25.551 Pain in right hip; E78.5 Hyperlipidemia, unspecified; M19.90 Unspecified osteoarthritis, unspecified site; G89.29 Other chronic pain; M54.5 Low back pain; Z79.82 Long term (current) use of aspirin; Z79.84 Long term (current) use of oral hypoglycemic drugs; Z79.899 Other long term (current) drug therapy; Z85.46 Personal history of malignant neoplasm of prostate; Z87.891 Personal history of nicotine dependence; Z86.14 Personal history of Methicillin resistant Staphylococcus aureus infection; Z90.49 Acquired absence of other specified parts of digestive tract; Z90.79 Acquired absence of other genital organ(s); Z92.3 Personal history of irradiation; Z87.11 Personal history of peptic ulcer disease; Z86.73 Personal history of transient ischemic attack (TIA), and cerebral infarction without residual deficits; Z98.42 Cataract extraction status, left eye; Z98.41 Cataract extraction status, right eye; Z82.3 Family history of stroke; Z80.6 Family history of leukemia; Z80.8 Family history of malignant neoplasm of other organs or systems
CPT/HCPCS: 36415; 51702; 51798; 74018; 74176; 76770; 80053; 81001; 82272; 83036; 85025; 87040; 87077; 87086; 87186; 96361; 96365; 96366; 96375; 99285

== ENCOUNTER → 2018-02-09 | Outpatient (CLI) | payer MEDICARE, BC ==
--- NOTE | 2018-02-09 11:26 | CT ---
EXAMINATION TYPE: CT angio abdomen DATE OF EXAM: 02/09/2018 COMPARISON: 01/08/2018 and 06/03/2015 HISTORY: 77-year-old male follow-up Abdominal aortic aneurysm. CT DLP: 2215.80 mGycm, Automated Exposure Control for Dose Reduction was Utilized. CONTRAST: CT scan of the abdomen is performed without and with IV Contrast, patient injected with 80 mL of Isov ue 370. Additional delayed images through the patient's stent graft were obtained. 3-D reconstruction s generated on a dedicated workstation along with coronal and sagittal reconstructions. FINDINGS: Heart normal size without pericardial effusion. Nonspecific punctate 2 mm posterior right basilar pul monary nodule and 3 mm inferior lingular pulmonary nodule. Some strandy areas of atelectasis or scarr ing are present. 9 mm posterior right basilar pulmonary nodule was present back in 2016 suggesting a benign etiology. No focal liver lesion or biliary ductal dilatation. Portal venous system appears patent. Gallbladder surgically absent. Minimal nodular thickening right adrenal gland stable to minimally increased from 2016 suggesting a b enign etiology. There is a nonenhancing, high attenuating round lesion upper pole right kidney measuring 2.9 cm with attenuation of a round 80 Hounsfield units. Findings suggest a hemorrhagic cyst, relatively stable fr om 2016. Tiny subcentimeter hypodensity upper pole left kidney unchanged from 05/29/2012. Dominant cys t right kidney measures 4.5 cm. Multiple additional hypodense lesions are present in the kidneys, lik roger representing cysts. Mild left-sided pelvicaliectasis and asymmetric ureteral prominence of uncertain etiology. No dilated small bowel, free fluid, or free air. No mesenteric or retroperitoneal lymphadenopathy. Prior ventral abdominal wall mesh repair. Mild overall stool burden. No pericolonic inflammatory change. Stable couple pericolonic nodules rosa g the anterior left omentum probable chronically calcified lymph nodes or sequela of old epiploic ghada endagitis. Redemonstrated abdominal biiliac endovascular stent graft repair. Upper abdominal aorta measures 3.3 cm, unchanged from recent comparison. Stent graft begins at the level of the SMA. The aorta at the le isamar of the kidneys is normal caliber. The infrarenal abdominal aorta and [place] ira sac measures 5.5 cm, stable from 01/08/2018 and even measur ing stable back to 04/28/2016. Intraluminal [place] ira sac calcifications are unchanged and there is no finding of contrast extending in to the [place] ira sac. The stented right common iliac artery remains ectatic at 1.7 cm, increased from 1.5 cm on 04/28/2016. Bladder not distended. Multiple pelvic phleboliths. Some surgical clips are present along the bilater al inguinal and pelvic sidewall regions. No abnormal fluid collection pelvis or pelvic lymphadenopath y seen. Bones: Moderate degenerative changes of the hips. Prior laminectomies with posterior lumbar fusion L1 -L2 and L5-S1. IMPRESSION: 1. Aortobiiliac endovascular stent graft. [place] sac measures 5.5 cm with similar intraluminal calcif ications. Overall caliber of the [place] ira sac remains unchanged back to at least 04/28/2016. No evidence for endoleak here. 2. The stented right common iliac artery shows minimal increase in caliber now measuring 1.7 cm versu s 1.5 cm on 04/28/2016. 3. Mild left-sided pelvicaliectasis may be transient. It could reflect a recently passed stone in the appropriate clinical setting. Consider short interval follow-up renal ultrasound to reassess. 4. The right upper pole renal lesion is again evaluated on this multiphasic study. Overall size of 2. 9 cm is similar and no enhancement is detected. A hemorrhagic/proteinaceous cyst is favored.
== END | disposition home or self-care (01) ==
LOC: RADCTMAIN 09:03
PROVIDERS: ATTEND Thoracic Surgery (Cardiothoracic Vascular Surgery)
DX: N28.9 Disorder of kidney and ureter, unspecified (principal); Z95.828 Presence of other vascular implants and grafts
CPT/HCPCS: 82565; 84520; 74175; 36415; Q9967

== ENCOUNTER → 2018-05-03 | Outpatient (CLI) | payer MEDICARE, BC ==
[2018-05-03 12:32] VITALS: BP 102/59; PULSE 83; RESP 18
--- NOTE | 2018-05-03 13:00 | P.PN ---
Subjective Progress Note Date: 05/03/18 This is a 78-year-old gentleman with chronic history of lower back pain. The patient recently has been having increasing pain on the lateral aspect of his left hip. If he sits leaning towards the left he gets numbness in that goes all the way down to his left foot. He had RFA in the sacroiliac joint previously. He had 3 or 4 surgeries on his lumbar spine. Today, pt denies new-onset weakness, bowel/bladder incontinence, or any other signs or symptoms of cauda equina syndrome. There are no signs of acute intoxication, and no indications of medication diversion or overuse. In addition to above, 13-point review of systems is also negative for chest pain, shortness of breath, changes in vision, changes in hearing, new onset weakness, abdominal pain, diarrhea, extreme fatigue, malaise, fever, skin changes, homicidal or suicidal ideation, or bowel or bladder incontinence. Vital Signs: Reviewed in EMR Gen: AAOx3, NAD HEENT: PERRLA,hearing grossly normal Pulm: resp unlabored,CTA Heart:S1,S2, No Mur Neck: supple, trachea midline Neuro exam of the lower extremities: Straight leg raising test: Negative Manuel's test: Range of motion of the lumbar spine: Facet loading test: Tenderness in the paravertebral musculature: Positive tenderness around the left greater trochanter Neuro: CN II-XII grossly intact, Imaging: Reviewed in EMR/chart Assessment: Lumbar postlaminectomy pain syndrome Left greater trochanter bursitis Abdominal aortic aneurysm peripheral vascular disease Plan: 1. Explanation: Opioid and psychological risk scores were reviewed. Diagnoses, prognoses, and multiple treatment options including but not limited to physical therapy, interventional therapies, adjuvant medical therapies, narcotic medication therapies, and surgery were discussed with the patient and all questions were answered to the patient's satisfaction. 2. Opioid agreement: Signed with the patient and the patient is warned not to use opioids while driving or before driving and not to combine opioids with benzodiazepines or alcohol. 3. Counseling: The patient was counseled extensively on SMOKING CESSATION, BODY MASS INDEX, EXERCISE. Specifically, the patient was instructed regarding the importance of smoking cessation, obesity, and exercise in the context of both chronic pain and overall health. 4. Procedures: Scheduled for left greater trochanter bursa steroid injection 5. Consultations: None 6. Investigations: None 7. Medications: None 8. Disposition: Return to the above-mentioned procedure PQRS measures: 1-Patient's medications are documented in the chart. 2-Tobacco use is negative, counseling given 3-Patient has had a pneumococcal vaccine. 4-Advanced care planning discussed, patient unable to give 5-Opioid contract signed with the patient. 6-Pain positive, follow-up visit or procedure scheduled 7-Patient's blood pressure measured and documented within normal limits. 8-Patient's weight was measured, and body mass index ABOVE the normal limits, and counseling was done. Patient instructed to follow up with PCP. 9-Patient WAS NOT identified as an unhealthy alcohol user. Objective - Vital Signs Vital signs: Vital Signs Temp Pulse 83 05/03/18 12:23 Resp 18 05/03/18 12:23 BP 102/59 05/03/18 12:23 Pulse Ox 94 L 05/03/18 12:23 Intake & Output 05/02/18 05/03/18 05/03/18 18:59 06:59 18:59 Weight 93.44 kg
== END ==
LOC: PNWHC3 12:09
PROVIDERS: ATTEND Anesthesiology
DX: G89.29 Other chronic pain (principal); M96.1 Postlaminectomy syndrome, not elsewhere classified; M70.62 Trochanteric bursitis, left hip; I71.4 Abdominal aortic aneurysm, without rupture; I73.9 Peripheral vascular disease, unspecified
CPT/HCPCS: 99211

== ENCOUNTER 2018-05-16 08:20 | Day surgery (SDC) | payer MEDICARE, BC ==
[2018-05-09 10:01] VITALS: BMI 34.2
[2018-05-16 08:41] VITALS: RESP 16; TEMP 96.5
[2018-05-16 08:45] LABS: Glucose,Whole Blood 166 mg/dL (75-99)
--- NOTE | 2018-05-16 09:15 | P.PCN ---
Date of Procedure: 05/16/18 Operative Findings: Pre OP diagnoses: trochanteric bursitis . Postoperative diagnosis: Left trochanteric bursitis. Procedure: Trochanteric bursa injection under fluoroscopy Complications: none . Description of the procedure: Risks, benefits, and alternatives of the procedure including but not limited to risk of infection and bleeding and not complete pain relief and ALLERGIC reaction to medication discussed with the patient and the alternative also discussed with the patient and they agreed to proceed to the operating room. The patient was Placed in prone position or standard monitors applied patient and after induction of anesthesia the back and the hip area prepped with chlorhexidine 3 times, 25-gauge 1-1/2 inch needle was used to place 3 ml of lidocaine to anesthetize the skin and subcu tissue and then and under sterile technique using 22-gauge spinal needle was advanced under flu oroscopy to the trochanteric bursa under fluoroscopy and placed in the right trochanteric bursa. Confirmation of the procedure was done under fluoroscopy. After negative aspiration, 4 mL of 0.5% ropivacaine along with 40 mg of Kenalog was placed into the bursa. Patient tolerated the procedure well. There is no complications. Patient will follow up in the clinic.
[2018-05-16 09:23] VITALS: BP 162/82; PULSE 78
--- NOTE | 2018-05-16 11:50 | FL ---
Fluoroscopy HISTORY: Pain 4 seconds fluoroscopy time supplied to the referring clinician. 1 intraoperative C-arm images docume nt the procedure. See dictated report from anesthesia.
== END 2018-05-16 09:46 | disposition home or self-care (01) ==
LOC: ORPAIN 08:20
PROVIDERS: ATTEND Hospitalist
DX: G89.29 Other chronic pain (principal); M70.62 Trochanteric bursitis, left hip; M96.1 Postlaminectomy syndrome, not elsewhere classified; I71.4 Abdominal aortic aneurysm, without rupture; I73.9 Peripheral vascular disease, unspecified
CPT/HCPCS: 20610; J3301

== ENCOUNTER → 2018-06-26 | Outpatient (CLI) | payer MEDICARE, BC ==
[2018-06-26 10:45] VITALS: PULSE 87
[2018-06-26 10:51] VITALS: BP 114/79; RESP 18
--- NOTE | 2018-06-26 12:14 | P.PN ---
Progress Note - Text Progress Note Date: 06/26/18 Patient returns for followup for chronic back pain with radiation to LLE > RLE, left hip pain. Currently his worst area of pain is his left hip that radiates into his groin with difficulty in range of motion of the left leg. Denies any radiating pain down to his lower extremity on the left. VAS today is a 7 out of 10 in severity mostly in his left hip groin area. SI joint injections have provided some relief however still has persistent pain in that area. Things th at make it worse are walking, putting shoes on, hip flexion, sitting for long periods of time. He has not had any imaging of his hips and his record. As prescribed tramadol by his primary care doctor. Denies any side effects of the medication. Takes Mobic and tolerates it well. 13-point review of systems is also negative for chest pain, shortness of breath, changes in vision, changes in hearing, new onset weakness, abdominal pain, diarrhea, extreme fatigue, malaise, fever, skin changes, homicidal or suicidal ideation, or bowel or bladder incontinence. Vital Signs: Reviewed in EMR Gen: WDWN, AAOx3, NAD HEENT: NCAT, EOMI, hearing grossly normal Pulm: resp unlabored Abd: soft, NT, ND Neck: supple, trachea midline ROM in flexion lumbar spine: reduced ROM in extension lumbar spine: reduced Lumbar paravertebral tenderness: + Facet loading: + bilateral SI joint tenderness: + L>R Manuel's test: + L > R Left hip flexion: Elicits significant pain. Crepitus felt with movement of left hip. Neuro: CN II-XII grossly intact, muscle strength lower extremities PRESERVED Imaging: Reviewed in EMR Assessment: 1. Lumbosacral spondylosis 2. SIJ dysfunction 3. lumbar spondylosis 4. chronic pain syndrome 5. Left hip osteoarthritis Plan: 1. Explanation: Opioid and psychological risk scores were reviewed. Diagnoses, prognoses, and multiple treatment options including but not limited to physical therapy, interventional therapies, adjuvant medical therapies, narcotic medication therapies, and surgery were discussed with the patient and all questions were answered to the patient's satisfaction. 2. Opioid agreement: no opioids prescribed today, prescribed by his PCP. 3. Counseling: The patient was counseled extensively on obesity and diet control. Specifically weight control, and exercise in the context of both chronic pain and overall health. 4. Procedures: None 5. Consultations: None 6. Investigations: X-rays pelvis and bilateral hips. 7. Medications: none prescribed 8. Disposition: Follow up in 4 weeks to review imaging.
== END ==
LOC: PNWHC3 10:30
PROVIDERS: ATTEND Anesthesiology
DX: G89.4 Chronic pain syndrome (principal); M47.816 Spondylosis without myelopathy or radiculopathy, lumbar region; M47.817 Spondylosis without myelopathy or radiculopathy, lumbosacral region; M16.12 Unilateral primary osteoarthritis, left hip; M53.3 Sacrococcygeal disorders, not elsewhere classified
CPT/HCPCS: 99211

== ENCOUNTER → 2018-06-27 | Outpatient (CLI) | payer MEDICARE, BC ==
--- NOTE | 2018-06-27 11:04 | XR ---
EXAMINATION TYPE: XR Hip Bilateral and AP pelvis DATE OF EXAM: 06/27/2018 COMPARISON: CT 02/09/2018 HISTORY: Osteoarthritis Pain TECHNIQUE: A single AP view of the pelvis is obtained. Two views of the bilateral hip are obtained. FINDINGS: There is no acute fracture/dislocation evident in the pelvis. The hip and sacroiliac join ts appear symmetric and unremarkable. The overlying soft tissue appears unremarkable. Two views of bilateral hip show no acute fracture or dislocation. No focal lytic or sclerotic lesion seen in the proximal bilateral femur. The overlying soft tissue is unremarkable. There are dense v ascular calcifications present. Some joint space loss, marginal spurring present at the hip joints. T here may be an underlying scoliosis in the lumbar spine, postop changes are noted at the lumbosacral junction. Patient is status post aortic stent graft. Multiple surgical clips present in the pelvis, m etallic coils present in the anterior abdomen soft tissues. Injection granuloma also noted incidental ly. IMPRESSION: There is no acute fracture or dislocation in the pelvis or bilateral hips. Osteoarthriti s. Degenerative disc disease, postop changes and scoliosis in the lumbar spine.
== END | disposition home or self-care (01) ==
LOC: RADXRMAIN 08:36
PROVIDERS: ATTEND Anesthesiology
DX: M16.0 Bilateral primary osteoarthritis of hip (principal); Z98.890 Other specified postprocedural states
CPT/HCPCS: 73521

== ENCOUNTER → 2018-07-24 | Outpatient (CLI) | payer MEDICARE, BC ==
[2018-07-24 12:59] VITALS: BP 124/78; PULSE 83; RESP 18
--- NOTE | 2018-07-24 13:23 | P.PN ---
Subjective Progress Note Date: 07/24/18 This is a 78-year-old gentleman with history of chronic lower back pain with radiation to the lower extremities down to the feet bilaterally .the patient had multiple back surgeries previously. He also had RFA of the sacroiliac joints and injection of the greater trochanters. The patient gets short-lived pain relief after these procedures. He used to be on Percocet 5 mg 3 times a day previously however right now he takes only Advil for pain. He denies taking any anticoagulants except for maybe aspirin a day. He has increasing pain in his back and both legs lately. Today, pt denies new-onset weakness, bowel/bladder incontinence, or any other signs or symptoms of cauda equina syndrome. There are no signs of acute intoxication, and no indications of medication diversion or overuse. In addition to above, 13-point review of systems is also negative for chest pain, shortness of breath, changes in vision, changes in hearing, new onset weakness, abdominal pain, diarrhea, extreme fatigue, malaise, fever, skin changes, homicidal or suicidal ideation, or bowel or bladder incontinence. Vital Signs: Reviewed in EMR Gen: AAOx3, NAD HEENT: PERRLA,hearing grossly normal Pulm: resp unlabored,CTA Heart:S1,S2, No Mur Neck: supple, trachea midline Neuro exam of the lower extremities: Normal muscle strength bilaterally and normal knee reflexes however he has absent ankle reflexes bilaterally Straight leg raising test: Negative bilaterally Manuel's test: Range of motion of the lumbar spine: Facet loading test: Tenderness in the paravertebral musculature: Positive on the left buttock area and also in the lumbar paravertebral musculature Postoperative mild edema in both feet Neuro: CN II-XII grossly intact, Imaging: Reviewed in EMR/chart Assessment: Lumbar postlaminectomy pain syndrome Bilateral hip osteoarthritis as per his last x-ray Plan: 1. Explanation: Opioid and psychological risk scores were reviewed. Diagnoses, prognoses, and multiple treatment options including but not limited to physical therapy, interventional therapies, adjuvant medical therapies, narcotic medication therapies, and surgery were discussed with the patient and all questions were answered to the patient's satisfaction. 2. Opioid agreement: Signed with the patient and the patient is warned not to use opioids while driving or before driving and not to combine opioids with benzodiazepines or alcohol. 3. Counseling: The patient was counseled extensively on SMOKING CESSATION, BODY MASS INDEX, EXERCISE. Specifically, the patient was instructed regarding the importance of smoking cessation, obesity, and exercise in the context of both chronic pain and overall health. 4. Procedures: Schedule for caudal epidural steroid injection with lysis of adhesions under fluoroscopic guidance 5. Consultations: The patient will follow up with his primary care physician for the swelling in his feet. 6. Investigations: None 7. Medications: None at this point however he might benefit from getting small dose of Percocet in the future 8. Disposition: Return to the above-mentioned procedure as soon as possible 9. Maps were reviewed and were appropriate. PQRS measures: 1-Patient's medications are documented in the chart. 2-Tobacco use is negative, counseling given 3-Patient has had a pneumococcal vaccine. 4-Advanced care planning discussed, patient unable to give 5-Opioid contract signed with the patient. 6-Pain positive, follow-up visit or procedure scheduled 7-Patient's blood pressure measured and documented above/ normal limits. The patient will follow up with his primary care physician. 8-Patient's weight was measured, and body mass index ABOVE the normal limits, and counseling was done. Patient instructed to follow up with PCP. 9-Patient WAS NOT identified as an unhealthy alcohol user. Objective - Vital Signs Vital signs: Vital Signs Temp Pulse 83 07/24/18 12:52 Resp 18 07/24/18 12:52 BP 124/78 07/24/18 12:52 Pulse Ox 95 07/24/18 12:52 Intake & Output 07/23/18 07/24/18 07/24/18 18:59 06:59 18:59 Weight 99.79 kg
== END ==
LOC: PNWHC3 12:30
PROVIDERS: ATTEND Anesthesiology
DX: M96.1 Postlaminectomy syndrome, not elsewhere classified (principal); M16.0 Bilateral primary osteoarthritis of hip
CPT/HCPCS: 99211

== ENCOUNTER → 2018-08-28 | Outpatient (CLI) | payer MEDICARE, BC ==
--- NOTE | 2018-08-28 15:37 | XR ---
EXAMINATION TYPE: XR chest 2V DATE OF EXAM: 08/28/2018 COMPARISON: Prior chest x-ray 08/29/[address] dated 05/25/2017 HISTORY: Cough TECHNIQUE: Frontal and lateral views of the chest are obtained. FINDINGS: Aorta is dense and tortuous as on prior exam. There is likely extensive calcification withi n the neck arteries, subclavian arteries. Patient is rotated. Prominent lung lines suggest underlying COPD. Postop changes are noted along the anterior upper abdomen and within the lumbar spine. There a re coronary calcifications present. There is no focal air space opacity, pleural effusion, or pneumot horax seen. The cardiac silhouette size is within normal limits. The osseous structures are intact . IMPRESSION: No acute cardiopulmonary process. There is emphysema.
== END | disposition home or self-care (01) ==
LOC: RADXRMAIN 10:31
PROVIDERS: ATTEND Family Medicine
DX: J43.9 Emphysema, unspecified (principal)
CPT/HCPCS: 71046

== ENCOUNTER 2018-09-07 07:07 | Day surgery (SDC) | payer MEDICARE, BC ==
[2018-09-07] MEDS ORDERED: LIDOCAINE 1% 20 ML VIAL (10MG/ML) FOR IV START INTRADERMA ONE (07:47)
[2018-09-07 07:56] LABS: Glucose,Whole Blood 160 mg/dL (75-99)
[2018-09-07 07:57] VITALS: TEMP 97.5
[2018-09-07] MEDS ORDERED: IV FLUID CONTINUATION 1,000 ML IV ONE ×2 (08:34)
[2018-09-07 08:43] VITALS: RESP 20
--- NOTE | 2018-09-07 09:04 | P.PCN ---
Date of Procedure: 09/07/18 Procedure(s) Performed: Procedure= caudal epidural steroid injection with lysis of epidural adhesions under fluoroscopy guidance. 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 2 lumbar degenerative disc disease 3-lumbar radiculopathy Postoperative diagnosis= same Fluoroscopy was used for the procedure and fluoroscopic images were saved to the patient's chart Anesthesia= IV sedation with Versed and fentanyl , and local infiltration with lidocaine 1% 3 mL for skin and subcutaneous tissue infiltrations. Description of the procedure= procedure risk and benefits discussed with the patient, including but not limited to risk of infection and bleeding and ALLERGIC reaction to the medication and no complete pain relief, paralysis discussed with the patient and the patient agreed with proceeding. patient taken to the operating room, placed in prone position, standard monitors applied, then after induction of anesthesia the lumbar and the caudal Area prepped with chlorhexidine , then under fluoroscopy guidance, local infiltration of the skin and subcutaneous tissue at the caudal hiatus area, then a 17-gauge Touhy needle advanced slowly under fluoroscopy and passed through the cauda hiatus and advanced to the epidural space. Aspiration revealed no heme, no paresthesia, no cerebrospinal fluid, then Isovue 200 2mls was injected underlie fluoroscopy that showed good spread in the epidural space, no intrathecal spread, then 22 alena Racz catheter advanced slowly through the needle up to L 5 vertebral body , and I was able to break the scar tissue by advancing and withdrawing the catheter multiple times. Unfortunately, I was not able to get higher than the L5 vertebral body due to severe epidural scar tissue., Once lysis of adhesion was done, a mixture of lidocaine 1% 1 mL +5 mL of preservative-free normal saline +40 mg of depomedrol was mixed together , and injected epidurally after negative aspiration. Patient tolerated the procedure well without any complication and patient will follow up with up in the pain clinic in 4 weeks.
[2018-09-07 09:19] VITALS: BP 158/82; PULSE 66
--- NOTE | 2018-09-07 16:43 | FL ---
Fluoroscopy HISTORY: Pain 24 seconds fluoroscopy time supplied to the referring clinician. 2 intraoperative C-arm images docum ent the procedure. See dictated report from anesthesia.
== END 2018-09-07 09:15 | disposition home or self-care (01) ==
LOC: ORPAIN 07:07
PROVIDERS: ATTEND Anesthesiology
DX: M96.1 Postlaminectomy syndrome, not elsewhere classified (principal); M51.16 Intervertebral disc disorders with radiculopathy, lumbar region
CPT/HCPCS: 62264; J2250; J1030; J3010; Q9966; C1894; 99152; 99153

== ENCOUNTER → 2018-10-05 | Outpatient (CLI) | payer MEDICARE, BC ==
[2018-10-05 12:20] VITALS: BP 121/77; PULSE 80; RESP 18
--- NOTE | 2018-10-05 16:09 | P.PAINPG ---
Subjective Progress Note Date: 10/05/18 This is a follow-up visit for this 78 years old female with a chronic history of severe low back pain patient diagnosed with lumbar spondylosis, and failed back surgery syndrome and lumbar area recently we've don caudal Epidural steroid injection with lysis of epidural adhesions, and his currently on Lyrica 50 mg daily and he is on Ultram 50 mg every 12 hours, he denies any motor or sensory deficits but he reported that the intensity of the pain interfering with her quality of life He denies any side effects of the medication and he reported the current medication is not helping him enough to control his pain Objective - Vital Signs Vital signs: Vital Signs Temp Pulse 80 10/05/18 12:10 Resp 18 10/05/18 12:10 BP 121/77 10/05/18 12:10 Pulse Ox 97 10/05/18 12:10 Intake & Output 10/04/18 10/05/18 10/05/18 18:59 06:59 18:59 Weight 96.162 kg - Exam Physical Examinations : -Constitutiona : Cooperative , not in acute distress . -HEENT : nech : supple , no Lymphadenopathy , normal thyroid size . eyes : no ptosis , no icterus, no photophobia . ENT : normal of hearing , normal oropharynx , no Thrush . - neurologic : Cranial nerve II to XII intact , no focal neurological deffecit . -psychatric : alert , oriented X 3 , appropriate affect , intact judgment and insight . -Lymphatic : no Lymphadenopathy . - musculoskeltal : Lumber spine moter stegnth lower extremities ,thigh and legs 5/5 Right side , 5/5 Left side deep tendon reflexes : normal Knee Jerk , normal ankle Jerk positive lumber facet Loading Test Range of motion of the lumbar spine Flexion 30 degrees, extension 10 degrees strait leg raising test , positive at degree Fabere test positive RT and positive LT . tenderness over the Sacroiliac joint on the R and L sides Assessment and Plan Plan: Assessment and plan= chronic low back pain secondary to lumbar failed back surgery syndrome , lumbar spondylosis with lumbar facet arthropathy . Patient could benefit from repeat caudal epidural steroid injection with lysis of epidural adhesions Patient currently getting prescription refill for Lyrica 50 mg UD I recommend to change it to 25 mg twice a day , and patient reported that he had no benefit from Ultram I recommend discontinue Ultram and patient could benefit from Percocet 5/325 every 12 hours , Time with Patient: Less than 30 PQRS Measure Charge Sheet Measure #130: Documentation of Current Meds in Medical Chart: Patient's medications documented in chart Measure #226: Tobacco Use: Screen & Cessation Intervention: Pt not a tobacco user Measure #111: Pneumonia Vaccination: Pneumococcal vaccine administered or previously received Measure #47: Advance Care Plan: Advance care planning discussed & documented, pt chose/unable to give Measure #412: Opioid Treatment Agreement: No documentation of signed opioid treatment agreement Measure #408: Opioid Therapy Follow-up Evaluation: Patient had NO f/u eval min imum every 3 months during opioid therapy Measure #317: Preventitive Care & Scrn High Bld Press & F/U: Normal blood pressure, f/u not required Measure #128: Body Mass Index (BMI) Screening & Follow-up: BMI documented ABOVE normal parameters - f/u documented Measure #131: Pain Assessment & Follow-up: Pain positive & plan documented, Follow-up scheduled Measure #431: Unhealthy Alcohol Use Preventative Care & Scrn: Patient not identified as an unhealthy alcohol user PQRS Narrative: Smoking Status Former smoker Narcotic Agreement Date Signed 04/14/17 Blood Pressure 121/77 Pain Intensity [Bilateral 5 Lower Back] Scale Used Numeric (1 - 10) Hx Alcohol Use (MH) No Home Medications: Ambulatory Orders amLODIPine [Norvasc] 5 mg PO BID 10/06/13 metFORMIN HCL 1,000 mg PO AC-SUPPER 10/06/13 Vitamin B Complex 1 cap PO DAILY 05/02/14 Cholecalciferol [Vitamin D3 (25 Mcg = 1000 Iu)] 1,000 unit PO DAILY 10/13/15 Omeprazole [PriLOSEC] 40 mg PO QAM 10/13/15 Ubidecarenone [Co Q-10] 100 mg PO DAILY 10/13/15 Psyllium Husk [Metamucil] 0.4 gm PO TID 03/22/17 Ferrous Sulfate 134mg 134 mg PO DAILY 08/29/17 Atorvastatin [Lipitor] 20 mg PO HS 09/28/17 Atenolol [Tenormin] 50 mg PO QAM 05/03/18 Fortical Calcitonin [place] 200 unit NASAL DAILY 05/03/18 Pregabalin [Lyrica] 50 mg PO DIRECTED PRN 05/03/18 traMADol HCl [Ultram] 50 mg PO BID 05/03/18 Ascorbic Acid [Vitamin C] 1,000 mg PO QAM 09/05/18 Aspirin 325 mg PO QAM 09/05/18 Indapamide 2.5 mg PO QAM 09/05/18 Controlled Substance Measures - Controlled Substance Measures Is patient prescribed a controlled substance at discharge?: No
== END | disposition home or self-care (01) ==
LOC: PNWHC3 09:50
PROVIDERS: ATTEND Specialist
DX: G89.29 Other chronic pain (principal); M47.816 Spondylosis without myelopathy or radiculopathy, lumbar region; M46.96 Unspecified inflammatory spondylopathy, lumbar region; M96.1 Postlaminectomy syndrome, not elsewhere classified; Z87.891 Personal history of nicotine dependence; Z98.890 Other specified postprocedural states; Z79.84 Long term (current) use of oral hypoglycemic drugs; Z79.82 Long term (current) use of aspirin; Z79.891 Long term (current) use of opiate analgesic; Z79.899 Other long term (current) drug therapy
CPT/HCPCS: 99211

== ENCOUNTER 2018-10-12 08:07 | Day surgery (SDC) | payer MEDICARE, BC ==
[2018-10-10 10:55] VITALS: BMI 34.2
[2018-10-12 09:37] VITALS: TEMP 97.3
[2018-10-12] MEDS ORDERED: LIDOCAINE 1% 20 ML VIAL (10MG/ML) FOR IV START INTRADERMA ONE (09:38)
[2018-10-12 09:50] LABS: Glucose,Whole Blood 99 mg/dL (75-99)
--- NOTE | 2018-10-12 10:28 | P.PCN ---
Date of Procedure: 10/12/18 Procedure(s) Performed: Procedure= caudal epidural steroid injection with lysis of epidural adhesions under fluoroscopy guidance. 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 2 lumbar degenerative disc disease 3-lumbar radiculopathy Postoperative diagnosis= same Anesthesia= moderate sedation with 1 mg Versed and 100 mcg fentanyl , and local infiltration with lidocaine 1% 3 mL for skin and subcutaneous tissue infiltrations. Description of the procedure= procedure risk and benefits discussed with the patient, including but not limited to risk of infection and bleeding and ALLERGIC reaction to the medication and no complete pain relief discussed with the patient and he, she agreed with preceding. patient taken to the operating room, placed in prone position standard monitors applied, then after induction of anesthesia the lumbar and the caudal Area prepped with chlorhexidine , then the under fluoroscopy guidance, local infiltration of the skin and subcu tissuel at the caudal hiatus area, then a needle was advanced slowly under fluoroscopy and passed through the cauda hiatus and advanced to the epidural space, there was positive loss of resistance to normal saline, no heme, no paresthesia, no cerebrospinal fluid, then after negative aspiration Omnipaque 180 mg per mL and 3 mL injected that showed possible spread in the epidural space, no intrathecal spread, then 22 alena Racz catheter advanced slowly through the needle up to L 4-5 interlaminar space , and I was able to break the scar tissue by advancing and withdrawing the catheter multiple times ,and after all this done, mixture of lidocaine 1% 2 mL +7 mL of preservative-free normal saline +40 mg of depomedrol mixed together , and injected epidurally after negative aspiration patient tolerated the procedure well without any complication and patient will follow up with up in the pain clinic within 4 weeks. There were no complications
[2018-10-12] MEDS ORDERED: IV FLUID CONTINUATION 1,000 ML IV ONE (10:34)
[2018-10-12 10:37] VITALS: RESP 18
[2018-10-12] MEDS ORDERED: LABETALOL 5 MG/ML VIAL MDV IVP ONE ×2 (10:58→11:44)
--- NOTE | 2018-10-12 11:07 | FL ---
EXAMINATION TYPE: FL guided pain mgmt statistic DATE OF EXAM: 10/12/2018 HISTORY: Flouroscopy time 12 seconds of fluoroscopy provided. IMPRESSION: 1. Fluoroscopy time.
[2018-10-12 11:58] VITALS: PULSE 78
[2018-10-12 12:23] VITALS: BP 184/83
== END 2018-10-12 12:34 | disposition home or self-care (01) ==
LOC: ORPAIN 08:07
PROVIDERS: ATTEND Student in an Organized Health Care Education/Training Program
DX: M96.1 Postlaminectomy syndrome, not elsewhere classified (principal); M51.16 Intervertebral disc disorders with radiculopathy, lumbar region
CPT/HCPCS: 62264; J2250; J1030; J3010; Q9966; C1894; 99152

== ENCOUNTER → 2018-11-09 | Outpatient (CLI) | payer MEDICARE, BC ==
--- NOTE | 2018-11-09 14:14 | XR ---
Bilateral hips HISTORY: Bilateral hip pain 2 views of each hip are submitted. There is mild marginal spurring present. Alignment is maintained. Bone mineralization mildly reduced. Joint space possibly slightly reduced. Surgical clips present in the groins. There may be injection granuloma in the gluteal region of the right hip or possibly adjacent to the posterior joint space. D ense vascular calcifications are noted. No fracture or dislocation. Calcifications present at the kojo gin of the hamstring musculature and also at the insertion site of the gluteus tendon on the right at the greater trochanter compatible calcific tendinitis. IMPRESSION: Bilateral osteoarthritis. Possible calcific tendinitis and additional findings above.
== END | disposition home or self-care (01) ==
LOC: RADXRMAIN 10:42
PROVIDERS: ATTEND Family Medicine
DX: M16.0 Bilateral primary osteoarthritis of hip (principal); M76.892 Other specified enthesopathies of left lower limb, excluding foot; M76.891 Other specified enthesopathies of right lower limb, excluding foot
CPT/HCPCS: 73521

== ENCOUNTER → 2018-11-09 | Outpatient (CLI) | payer MEDICARE, BC ==
[2018-11-09 12:17] VITALS: BP 181/89; PULSE 77; RESP 18
--- NOTE | 2018-11-09 15:56 | P.PAINPG ---
Subjective Progress Note Date: 11/09/18 Seizures a 78-year-old male with severe low back pain, failed back surgery syndrome, and lumbar spondylosis. He has had epidural lysis of adhesions with steroids, however his blood pressure is increased after the injection, and his blood sugars elevated. He only had transient benefit with the injection. His main purpose of coming here today is that his primary care doctor did not prescribe him the Percocet, that our clinic recommended. Thus he is interested in going back on Percocet. Objective - Vital Signs Vital signs: Vital Signs Temp Pulse 77 11/09/18 12:15 Resp 18 11/09/18 12:15 BP 181/89 11/09/18 12:15 Pulse Ox 96 11/09/18 12:15 - Exam Vital Signs: Reviewed in EMR GENERAL: Well appearing, in no acute distress, PSYCH: Mood and affect is appropriate. Awake, alert, and oriented SKIN: Skin color, texture, turgor normal, no rashes or lesions HEENT: Normocephalic, atraumatic. EOM intact CV: No pedal edema RESP: Respirations are unlabored, no audible wheezing GI: Abdomen non-distended MUSCULOSKELETAL: Bilateral upper and lower extremity strength is normal and symmetric. No atrophy or tone abnormalities are noted. Lumbar spine: Positive to pain to palpation over the lumbar spine and paraspinous muscles. Buttocks: No pain to palpation over the PSIS, Claudio test is negative bilaterally Gait: Patient is in wheelchair, his gait is unsteady NEUR: No loss of sensation is noted. Cranial nerves are grossly intact. Assessment and Plan Assessment: Assessment: 1. Failed back surgery 2. Chronic opiate use 3. Obesity Plan: 1. Explanation: Opioid and psychological risk scores were reviewed. Diagnoses, prognoses, and multiple treatment options including but not limited to physical therapy, interventional therapies, adjuvant medical therapies, narcotic medication therapies, and surgery were discussed with the patient and all questions were answered to the patient's satisfaction. 2. Opioid agreement: We do not prescribe opiates for the patient 3. Counseling: The patient was counseled extensively on BODY MASS INDEX, EXERCISE. Specifically, the patient was instructed regarding the importance of weight control, and exercise in the context of both chronic pain and overall health. 4. Procedures: Had transient benefit with the caudal 5. Consultations: He was given a referral for medication management for chronic pain. 6. Investigations: Reviewed 7. Medications: We do not write him for opiates, he was agreeable to this, and was open to seeing a medication care management specialist for this 8. Disposition: As needed , PQRS Measure Charge Sheet Measure #226: Tobacco Use: Screen & Cessation Intervention: Pt not a tobacco user Measure #111: Pneumonia Vaccination: Pneumococcal vaccine administered or previously received Measure #47: Advance Care Plan: Advance care planning discussed & documented, pt chose/unable to give Measure #131: Pain Assessment & Follow-up: Pain positive & plan documented, Follow-up scheduled, Follow-up PRN PQRS Narrative: Smoking Status Former smoker Narcotic Agreement Date Signed 04/14/17 Blood Pressure 181/89 Pain Intensity [Back] 5 Scale Used Numeric (1 - 10) Hx Alcohol Use (MH) No Home Medications: Ambulatory Orders amLODIPine [Norvasc] 5 mg PO BID 10/06/13 metFORMIN HCL 1,000 mg PO AC-SUPPER 10/06/13 Vitamin B Complex 1 cap PO DAILY 05/02/14 Cholecalciferol [Vitamin D3 (25 Mcg = 1000 Iu)] 1,000 unit PO DAILY 10/13/15 Omeprazole [PriLOSEC] 40 mg PO QAM 10/13/15 Ubidecarenone [Co Q-10] 100 mg PO DAILY 10/13/15 Psyllium Husk [Metamucil] 0.4 gm PO TID 03/22/17 Ferrous Sulfate 134mg 134 mg PO DAILY 08/29/17 Atorvastatin [Lipitor] 20 mg PO HS 09/28/17 Atenolol [Tenormin] 50 mg PO QAM 05/03/18 Fortical Calcitonin [place] 200 unit NASAL DAILY 05/03/18 Pregabalin [Lyrica] 50 mg PO DIRECTED PRN 05/03/18 traMADol HCl [Ultram] 50 mg PO BID 05/03/18 Ascorbic Acid [Vitamin C] 1,000 mg PO QAM 09/05/18 Aspirin 325 mg PO QAM 09/05/18 Indapamide 2.5 mg PO QAM 09/05/18 Levothyroxine Sodium [Synthroid] 1 tab PO DAILY 11/09/18 Controlled Substance Measures - Controlled Substance Measures Is patient prescribed a controlled substance at discharge?: No
== END | disposition home or self-care (01) ==
LOC: PNWHC3 10:37
PROVIDERS: ATTEND Student in an Organized Health Care Education/Training Program
DX: M96.1 Postlaminectomy syndrome, not elsewhere classified (principal); E66.9 Obesity, unspecified; Z87.891 Personal history of nicotine dependence; Z98.890 Other specified postprocedural states; Z79.891 Long term (current) use of opiate analgesic; Z79.84 Long term (current) use of oral hypoglycemic drugs; Z79.82 Long term (current) use of aspirin; Z79.890 Hormone replacement therapy; Z79.899 Other long term (current) drug therapy; Z68.33 Body mass index [BMI] 33.0-33.9, adult
CPT/HCPCS: 99211

== ENCOUNTER → 2019-03-05 | Outpatient (CLI) | payer MEDICARE, BC ==
[2019-03-05 14:24] VITALS: BP 138/75; PULSE 73; RESP 20
--- NOTE | 2019-03-06 10:43 | P.PAINPG ---
Subjective Progress Note Date: 03/05/19 This is a follow-up visit for this 78-year-old male with severe low back pain, failed back surgery syndrome, and lumbar spondylosis. He has been managed with a combination of interventional pain procedures and medications. In the past, he has not done well with steroid injections as his blood pressure increased after the injection, and his blood sugars elevated. Today, his primary pain complaint is his left buttocks radiating to posterior thigh and occasionally to toes, rated as 7-9/10, better with Percocet and inactivity, worse with walking, standing. He has previously undergone sacroiliac radiofrequency ablation in the past, last done in September 2017 and would likely benefit from repeat procedure. Of note, his primary care physician, Dr. Ojeda, has restarted him on narcotics, this is helping his pain. He denies side effects from the medications, medications are helping him function. Review of systems is negative for chest pain, new onset weakness, numbness/tingling, abdominal pain, malaise, fever, night sweats, chills, homicidal or suicidal ideation, or bowel incontinence. Of note, he is complaining of chronic shortness of breath as well as unsteadiness on his feet and bilateral lower extremity edema. He also endorses chronic stress incontinence. His primary care physician is addressing this. Objective - Exam Vital Signs: Reviewed in EMR GENERAL: Well appearing, in no acute distress, seated in wheelchair PSYCH: Mood and affect is appropriate. Awake, alert, and oriented SKIN: Skin color, texture, turgor normal, no rashes or lesions HEENT: Normocephalic, atraumatic. EOM intact CV: 1+ pedal edema bilaterally RESP: Respirations are unlabored, no audible wheezing GI: Abdomen non-distended MUSCULOSKELETAL: Bilateral lower extremity strength is normal and symmetric. No atrophy or tone abnormalities are noted. Lumbar spine: Positive to pain to palpation over the lumbar spine and paraspinous muscles. Buttocks: Tenderness to palpation over the left greater than right PSIS, Claudio test is positive on left, sacral thrust positive on left, 4 and finger positive on left Gait: Patient is in wheelchair, his gait is unsteady NEUR: No loss of sensation is noted. Cranial nerves are grossly intact. Assessment and Plan Assessment: Assessment: 1. Failed back surgery 2. Left sacroiliitis 3. Obesity 4. Chronic opiate use Plan: 1. Explanation: We discussed repeating sacroiliac radiofrequency ablation, patient is amenable to this plan. 2. Opioid agreement: We do not prescribe medications for the patient, he obt ains this from primary care physician 3. Counseling: The patient was counseled on BODY MASS INDEX, EXERCISE. Specifically, the patient was instructed regarding the importance of weight control, and exercise in the context of both chronic pain and overall health. 4. Procedures: We will schedule left sided radio frequency ablation of the SI jointdorsal ramus of L5, lateral branches of S1, S2, S3. We'll plan on not using steroids for this procedure, as patient has had elevated blood sugars and blood pressure from prior steroid injections 5. Consultations: Patient was instructed to follow up with primary care physician regarding bilateral lower extremity edema 6. Investigations: None 7. Medications: Managed by primary care physician 8. Disposition: For above-mentioned procedure PQRS Measure Charge Sheet Measure #130: Documentation of Current Meds in Medical Chart: Patient's medications documented in chart Measure #226: Tobacco Use: Screen & Cessation Intervention: Pt screened for tobacco use AND intervention given Measure #111: Pneumonia Vaccination: Pneumococcal vaccine administered or previously received Measure #47: Advance Care Plan: Advance care planning discussed & documented, pt chose/unable to give Measure #412: Opioid Treatment Agreement: No documentation of signed opioid treatment agreement Measure #408: Opioid Therapy Follow-up Evaluation: Patient had NO f/u eval minimum every 3 months during opioid therapy Measure #317: Preventitive Care & Scrn High Bld Press & F/U: Normal blood pressure, f/u not required Measure #128: Body Mass Index (BMI) Screening & Follow-up: BMI documented ABOVE normal parameters - f/u documented Measure #131: Pain Assessment & Follow-up: Pain positive & plan documented, Follow-up scheduled Measure #431: Unhealthy Alcohol Use Preventative Care & Scrn: Patient not identified as an unhealthy alcohol user PQRS Narrative: Smoking Status Former smoker Narcotic Agreement Date Signed 04/14/17 Scale Used Numeric (1 - 10) Hx Alcohol Use (MH) No Home Medications: Ambulatory Orders metFORMIN HCL 1,000 mg PO AC-SUPPER 10/06/13 Vitamin B Complex 1 cap PO DAILY 05/02/14 Cholecalciferol [Vitamin D3 (25 Mcg = 1000 Iu)] 1,000 unit PO DAILY 10/13/15 Omeprazole [PriLOSEC] 40 mg PO QAM 10/13/15 Ubidecarenone [Co Q-10] 100 mg PO DAILY 10/13/15 Psyllium Husk [Metamucil] 0.4 gm PO TID 03/22/17 Ferrous Sulfate 134mg 134 mg PO DAILY 08/29/17 Atorvastatin [Lipitor] 20 mg PO HS 09/28/17 Atenolol [Tenormin] 100 mg PO BID 05/03/18 Fortical Calcitonin [place] 200 unit NASAL DAILY 05/03/18 Pregabalin [Lyrica] 50 mg PO DIRECTED PRN 05/03/18 traMADol HCl [Ultram] 50 mg PO BID 05/03/18 Ascorbic Acid [Vitamin C] 1,000 mg PO QAM 09/05/18 Aspirin 325 mg PO QAM 09/05/18 Indapamide 5 mg PO QAM 09/05/18 Levothyroxine Sodium [Synthroid] 1 tab PO DAILY 11/09/18 oxyCODONE-APAP 10-325MG [Percocet 10-325 mg] 1 tab PO DIRECTED PRN 03/05/19 Controlled Substance Measures - Controlled Substance Measures Is patient prescribed a controlled substance at discharge?: No
== END | disposition home or self-care (01) ==
LOC: PNWHC3 13:26
PROVIDERS: ATTEND Anesthesiology
DX: M96.1 Postlaminectomy syndrome, not elsewhere classified (principal); M46.1 Sacroiliitis, not elsewhere classified; E66.9 Obesity, unspecified; F11.90 Opioid use, unspecified, uncomplicated; Z87.891 Personal history of nicotine dependence; Z68.34 Body mass index [BMI] 34.0-34.9, adult; Z79.84 Long term (current) use of oral hypoglycemic drugs; Z79.899 Other long term (current) drug therapy; Z79.82 Long term (current) use of aspirin; Z79.890 Hormone replacement therapy
CPT/HCPCS: 99211

== ENCOUNTER → 2019-03-13 | Outpatient (CLI) | payer MEDICARE, BC ==
[2019-03-13 10:06] LABS: ALT 17 U/L (4-49); AST 23 U/L (17-59); African American GFR (CKD) 64 (>60 ml/min/1.73 sqM); Albumin 4.2 g/dL (3.5-5.0); Albumin/Globulin Ratio 1.5; Alkaline Phosphatase 92 U/L (38-126); Anion Gap 8 mmol/L; Blood Urea Nitrogen 32 mg/dL (9-20); Calcium 9.5 mg/dL (8.4-10.2); Carbon Dioxide 29 mmol/L (22-30); Chloride 108 mmol/L (98-107); Globulin 2.8 g/dL; Glucose 166 mg/dL (74-99); Non-African American GFR(CKD) 55 (>60 ml/min/1.73 sqM); Potassium 4.5 mmol/L (3.5-5.1); Sodium 145 mmol/L (137-145); Total Bilirubin 0.7 mg/dL (0.2-1.3)
[2019-03-13 10:09] LABS: Basophils % (A) 1 %; Eosinophils # (A) 0.4 k/uL (0-0.7); Eosinophils % (A) 5 %; HCT 37.1 % (39.0-53.0); HGB 11.9 gm/dL (13.0-17.5); Lymphocytes # (A) 0.8 k/uL (1.0-4.8); Lymphocytes % (A) 10 %; MCH 31.1 pg (25.0-35.0); MCV 97.1 fL (80.0-100.0); Monocytes # (A) 0.5 k/uL (0-1.0); Monocytes % (A) 6 %; Neutrophils # (A) 6.1 k/uL (1.3-7.7); Neutrophils % (A) 77 %; Platelet Count 219 k/uL (150-450); RBC 3.82 m/uL (4.30-5.90); RDW 13.8 % (11.5-15.5); WBC 7.9 k/uL (3.8-10.6)
== END | disposition home or self-care (01) ==
LOC: LABWHC1 09:19
PROVIDERS: ATTEND Family Medicine
DX: R60.0 Localized edema (principal)
CPT/HCPCS: 36415; 80053; 85025; 85379

== ENCOUNTER → 2019-03-15 | Outpatient (CLI) | payer MEDICARE, BC ==
--- NOTE | 2019-03-15 08:53 | US ---
EXAMINATION TYPE: US venous doppler duplex LE DATE OF EXAM: 03/15/2019 8:28 AM COMPARISON: NONE CLINICAL HISTORY: R79.1 Abnormal coagulation. Edema. SIDE PERFORMED: Bilateral TECHNIQUE: The lower extremity deep venous system is examined utilizing real time linear array sonog christine with graded compression, doppler sonography and color-flow sonography. VESSELS IMAGED: External Iliac Vein (EIV) Common Femoral Vein Deep Femoral Vein Greater Saphenous Vein * Femoral Vein Popliteal Vein Small Saphenous Vein * Proximal Calf Veins (* superficial vessels) Grayscale, color doppler, spectral doppler imaging performed of the deep veins of the lower extremiti es. There is normal flow, compressibility, vascular waveforms. Right Leg: Negative for DVT Left Leg: Negative for DVT IMPRESSION: No sonographic evidence of deep venous thrombosis within either the bilateral lower extr emities.
== END | disposition home or self-care (01) ==
LOC: RADUSWWP 07:38
PROVIDERS: ATTEND Family Medicine
DX: R79.1 Abnormal coagulation profile (principal)
CPT/HCPCS: 93970

== ENCOUNTER 2019-03-22 07:17 | Day surgery (SDC) | payer MEDICARE, BC ==
[2019-03-21 11:19] VITALS: BMI 75.4
[~2019-03-22 07:17] MED LIST changes: +LIDOCAINE 4% (PF) 5 ML AMP ONE; +MIDAZOLAM 2 MG/2 ML VIAL ONE; +fentaNYL (PF) 50 MCG/ML 2 ML AMP ONE
[2019-03-22 08:27] VITALS: RESP 16; TEMP 97.1
[2019-03-22 08:39] LABS: Glucose,Whole Blood 160 mg/dL (75-99)
[2019-03-22] MEDS ORDERED: LACTATED RINGERS 1,000 ML IV ONE (09:30)
[2019-03-22 09:52] VITALS: BP 114/66; PULSE 81
--- NOTE | 2019-03-22 10:48 | P.PCN ---
Date of Procedure: 03/22/19 Procedure(s) Performed: Bipolar Radiofrequency Ablation of Lateral Branches of S1, S2, S3 ATTENDING PHYSICIAN: Bryanna Sanchez MD PREOPERATIVE DIAGNOSIS: left Sacroiliac Joint Pain/ sacroilitis POSTOPERATIVE DIAGNOSIS: same PROCEDURE PERFORMED: Bipolar Radiofrequency Ablation of Lateral Branches of S1, S2 and S3 SIDE: left IV SEDATION moderate sedation with Versed and fentanyl , sedation time 36 minutes ESTIMATED BLOOD LOSS: None FLUOROSCOPY WAS USED. Images were saved in the radiology portion of the chart. INDICATIONS FOR PROCEDURE: Patient has a clinical picture consistent with left sacroiliac joint dysfunction and has responded well to sacral radiofrequency ablation in the past. PROCEDURE AND FINDINGS: The patient was greeted in the pre procedure holding area. The risk, benefits and alternatives to the procedure were again reviewed with the patient and written informed consent was placed in the chart. Prior to the procedure a time out was completed, verifying correct patient, procedure, site, positioning, and implants and/or special equipment. An IV line was placed. The patient was taken to the procedure room and positioned prone on the fluoroscopy table. Routine monitors were applied including EKG leads, blood pressure cuff, and pulse oximetry. The skin was prepped with chlorhexidine and draped in the usual sterile fashion. A fluoroscopic AP view was used to identify the sacral ala and the left SI joint with the associated S1-S3 foramens medial to the SI joint line. A marker was used to do the sacral ala and the lateral aspects of the S1-S3 foramen. Hooks were made 1 cm apart. Then overlying skin and subcutaneous tissues were anesthetized using a 25-gauge 1-1/2-inch needle with 1% preservative free lidocaine for a total volume of 10 mls. Under AP and lateral fluorscopic views, 18 gauge 100 mm [employer] Bipolar RF needles with a 10 mm active tip were inserted at the lateral aspects of the S1, S2 and S3 foramens and advanced until it touched os. Confirmation of position was then made with a lateral fluoroscopic view to ensure that the tips were posterior to the posterior plate of the sacrum. Motor stimulation at 2 Hz and up to 2V was conducted between sequential probes. There was no observable motor movement in the lower extremities and the patient confirmed this by self-report. After satisfactory motor testing was completed at each level, approximately 0.5 mL of 4% Lidocaine was injected to anesthetize the radiofrequency ablation target. Subsequently, bipolar radiofrequency ablation was carried out at each of the aforementioned locations with a probe temperature set to 90C for 150 seconds. A total of 5 bipolar radiofrequency lesions and 1 unipolar radiofrequency lesion was done. Following lesioning the needles were removed. The needle insertion site was dressed appropriately. The patient was taken to the recovery room where they were monitored for a brief period of time. They tolerated the procedure well and were discharged home in stable condition with post procedural instructions. Follow-up will be in clinic in 4 weeks. COMPLICATIONS: None
--- NOTE | 2019-03-27 12:10 | FL ---
Fluoroscopy HISTORY: Pain 8 seconds fluoroscopy time supplied to the referring clinician. 6 intraoperative C-arm images docume nt the procedure. See dictated report from anesthesia.
== END 2019-03-22 10:09 | disposition home or self-care (01) ==
LOC: ORPAIN 07:17
PROVIDERS: ATTEND Anesthesiology
DX: M46.1 Sacroiliitis, not elsewhere classified (principal); M53.3 Sacrococcygeal disorders, not elsewhere classified; E11.9 Type 2 diabetes mellitus without complications; Z79.82 Long term (current) use of aspirin
CPT/HCPCS: 64625; J2001; J2250; J3010; 64635; 64640; 99152; 99153

== ENCOUNTER 2019-04-05 07:21 | Day surgery (SDC) | payer MEDICARE, BC ==
[2019-04-03 11:49] VITALS: BMI 34.2
[~2019-04-05 07:21] MED LIST changes: -LIDOCAINE 4% (PF) 5 ML AMP ONE; -MIDAZOLAM 2 MG/2 ML VIAL ONE; -fentaNYL (PF) 50 MCG/ML 2 ML AMP ONE
[2019-04-05 08:44] VITALS: TEMP 97
[2019-04-05 08:45] LABS: Glucose,Whole Blood 170 mg/dL (75-99)
[2019-04-05] MEDS ORDERED: LIDOCAINE 4% (PF) 5 ML AMP ONE (08:49)
[2019-04-05] MEDS ORDERED: fentaNYL (PF) 50 MCG/ML 2 ML AMP ONE (08:49)
[2019-04-05] MEDS ORDERED: MIDAZOLAM 2 MG/2 ML VIAL ONE (08:49)
[2019-04-05] MEDS ORDERED: IV FLUID CONTINUATION 1,000 ML IV ONE (09:48)
[2019-04-05 10:12] VITALS: BP 147/67; PULSE 67; RESP 18
--- NOTE | 2019-04-05 10:19 | P.PCN ---
Date of Procedure: 04/05/19 Procedure(s) Performed: Bipolar Radiofrequency Ablation of Lateral Branches of S1 and S2 ATTENDING PHYSICIAN: Bryanna Sanchez MD PREOPERATIVE DIAGNOSIS: Right Sacroiliac Joint Pain/ sacroilitis POSTOPERATIVE DIAGNOSIS: same PROCEDURE PERFORMED: Bipolar Radiofrequency Ablation of Lateral Branches of S1, S2 and S3 SIDE: Right IV SEDATION moderate sedation with Versed and fentanyl , sedation time 44 minutes ESTIMATED BLOOD LOSS: None FLUOROSCOPY WAS USED. Images were saved in the radiology portion of the chart. INDICATIONS FOR PROCEDURE: Patient has a clinical picture consistent with right sacroiliac joint dysfunction and has responded well to sacral radiofrequency ablation in the past. PROCEDURE AND FINDINGS: The patient was greeted in the pre procedure holding area. The risk, benefits and alternatives to the procedure were again reviewed with the patient and written informed consent was placed in the chart. Prior to the procedure a time out was completed, verifying correct patient, procedure, site, positioning, and implants and/or special equipment. An IV line was placed. The patient was taken to the procedure room and positioned prone on the fluoroscopy table. Routine monitors were applied including EKG leads, blood pressure cuff, and pulse oximetry. The skin was prepped with chlorhexidine and draped in the usual sterile fashion. A fluoroscopic AP view was used to identify the sacral ala and the SI joint with the associated S1-S3 foramens medial to the SI joint line. A marker was used to do the sacral ala and the lateral aspects of the S1-S3 foramen. Hooks were made 1 cm apart. Then overlying skin and subcutaneous tissues were anesthetized using a 25-gauge 1-1/2-inch needle with 1% preservative free lidocaine for a total volume of 10 mls. Under AP and lateral fluorscopic views, 18 gauge 100 mm [email or web address] Bipolar RF needles with a 10 mm active tip were inserted at the lateral aspects of the S1, S2 and S3 foramens and advanced until it touched os. Confirmation of position was then made with a lateral fluoroscopic view to ensure that the tips were posterior to the posterior plate of the sacrum. Motor stimulation at 2 Hz and up to 2V was conducted between sequential probes. There was no observable motor movement in the lower extremities and the patient confirmed this by self-report. After satisfactory motor testing was completed at each level, approximately 0.5 mL of 4% Lidocaine was injected to anesthetize the radiofrequency ablation target. Subsequently, bipolar radiofrequency ablation was carried out at each of the aforementioned locations with a probe temperature set to 90C for 150 seconds. A total of 8 bipolar radiofrequency lesions was done. Following lesioning the needles were removed. The needle insertion site was dressed appropriately. The patient was taken to the recovery room where they were monitored for a brief period of time. They tolerated the procedure well and were discharged home in stable condition with post procedural instructions. Follow-up will be in clinic in 4 weeks. COMPLICATIONS: None
--- NOTE | 2019-04-05 12:54 | FL ---
Fluoroscopy HISTORY: Pain 9 seconds fluoroscopy time supplied to the referring clinician. 2 intraoperative C-arm images docume nt the procedure. See dictated report from anesthesia.
== END 2019-04-05 10:25 | disposition home or self-care (01) ==
LOC: ORPAIN 07:21
PROVIDERS: ATTEND Anesthesiology
DX: M46.1 Sacroiliitis, not elsewhere classified (principal); Z79.82 Long term (current) use of aspirin
CPT/HCPCS: 64625; J2001; J2250; J3010; 64640; 99152; 99153

== ENCOUNTER → 2019-08-22 | Outpatient (CLI) | payer MEDICARE, BC ==
--- NOTE | 2019-08-23 10:27 | P.PAINPG ---
Subjective Progress Note Date: 08/22/19 This is a follow-up visit for this 79 years old female with a chronic history of severe low back pain patient diagnosed with lumbar spondylosis, and failed back surgery syndrome , and sacroiliitis and lumbar area recently we've don caudal Epidural steroid injection with lysis of epidural adhesions, and his currently on Neurontin 400 mg 3 times a day and Percocet 10/325 when necessary prescription given by his primary care, he denies any motor or sensory deficits but he reported that the intensity of the pain interfering with her quality of life, He denies any side effects of the medication and he reported the current medication is not helping him enough to control his pain, currently patient repo rted that he has severe low back pain with radiation to the lower extremity bilaterally with occasional numbness and tingling sensation, patient has difficulty ambulating and uses cane to walk. Objective - Exam Physical Examinations : -Constitutiona : Cooperative , not in acute distress . -HEENT : nech : supple , no Lymphadenopathy , normal thyroid size . : eyes : no ptosis , no icterus, no photophobia . : ENT : normal of hearing , normal oropharynx , no Thrush . - Respiratory : Chest clear to auscultations Bilaterally , no wheezing , no Rhonchi . - Cardiovascula : regular rate and rhythem , S1 , S2 , no S3 , no S4. - Gastrointestina : abdomen soft no tenderness , bowel sounds , no organomegally . - Genitourinary : Defferred . - neurologic : Cranial nerve II to XII intact , no focal neurological deffecit . -psychatric : alert , oriented X 3 , appropriate affect , intact judgment and insight . -Lymphatic : no Lymphadenopathy . - musculoskeltal : Lumber spine moter stegnth lower extremities ,thigh and legs 5/5 Right side , 5/5 Left side deep tendon reflexes : normal Knee Jerk , normal ankle Jerk lumber facet Loading Test =positive Right , positive Left Range of motion of the lumbar spine Flexion 30 degrees, extension 10 degrees strait leg raising test = positive at 30degree Fabere test= positive Right , and positive LT . tenderness over the Sacroiliac joint on the Right , and Left sides . Assessment and Plan Plan: Assessment and plan= chronic severe low back pain secondary to failed back surgery syndrome and lumbar area, lumbar spondylosis with lumbar facet arthropathy, sacroiliitis. Patient could benefit from caudal epidural steroid injection with lysis of epidural adhesions. Procedure risk and benefits and alternatives discussed with the patient he agreed with the preceding. Patient will continue to use his current medication Percocet 10/325 when necessary and Neurontin 400 mg 3 times a day as prescribed by his primary care Time with Patient: Less than 30 PQRS Measure Charge Sheet Measure #130: Documentation of Current Meds in Medical Chart: Patient's medications documented in chart Measure #226: Tobacco Use: Screen & Cessation Intervention: Pt not a tobacco user Measure #111: Pneumonia Vaccination: Pneumococcal vaccine administered or previously received Measure #47: Advance Care Plan: Advance care planning discussed & documented, pt chose/unable to give Measure #412: Opioid Treatment Agreement: No documentation of signed opioid treatment agreement Measure #408: Opioid Therapy Follow-up Evaluation: Patient had NO f/u eval minimum every 3 months during opioid therapy Measure #317: Preventitive Care & Scrn High Bld Press & F/U: Normal blood pr essure, f/u not required Measure #128: Body Mass Index (BMI) Screening & Follow-up: BMI documented ABOVE normal parameters - f/u documented Measure #131: Pain Assessment & Follow-up: Pain positive & plan documented, Follow-up scheduled Measure #431: Unhealthy Alcohol Use Preventative Care & Scrn: Patient not identified as an unhealthy alcohol user PQRS Narrative: Smoking Status Former smoker Narcotic Agreement Date Signed 04/14/17 Pain Intensity [Lower Back] 6 Scale Used Numeric (1 - 10) Hx Alcohol Use (MH) No Home Medications: Ambulatory Orders metFORMIN HCL 1,000 mg PO AC-SUPPER 10/06/13 Vitamin B Complex 1 cap PO DAILY 05/02/14 Cholecalciferol [Vitamin D3 (25 Mcg = 1000 Iu)] 1,000 unit PO DAILY 10/13/15 Omeprazole [PriLOSEC] 40 mg PO QAM 10/13/15 Ubidecarenone [Co Q-10] 100 mg PO DAILY 10/13/15 Psyllium Husk [Metamucil] 0.4 gm PO TID 03/22/17 Ferrous Sulfate 134mg 134 mg PO DAILY 08/29/17 Atorvastatin [Lipitor] 20 mg PO HS 09/28/17 Fortical Calcitonin [place] 200 unit NASAL DAILY 05/03/18 Ascorbic Acid [Vitamin C] 1,000 mg PO QAM 09/05/18 Aspirin 325 mg PO QAM 09/05/18 Indapamide 5 mg PO QAM 09/05/18 Levothyroxine Sodium [Synthroid] 25 mcg PO QAM 11/09/18 oxyCODONE-APAP 10-325MG [Percocet 10-325 mg] 1 tab PO DIRECTED PRN 03/05/19 Atenolol [Tenormin] 50 mg PO QAM 03/21/19 Gabapentin [Neurontin] 400 mg PO TID 03/21/19 rOPINIRole HCL [Requip] 4 mg PO HS 03/21/19 Controlled Substance Measures - Controlled Substance Measures Is patient prescribed a controlled substance at discharge?: No
== END | disposition home or self-care (01) ==
LOC: PNWHC3 12:44
PROVIDERS: ATTEND Specialist
DX: G89.29 Other chronic pain (principal); M96.1 Postlaminectomy syndrome, not elsewhere classified; M47.816 Spondylosis without myelopathy or radiculopathy, lumbar region; M46.1 Sacroiliitis, not elsewhere classified; Z87.891 Personal history of nicotine dependence; Z79.84 Long term (current) use of oral hypoglycemic drugs; Z79.82 Long term (current) use of aspirin; Z79.899 Other long term (current) drug therapy
CPT/HCPCS: 99211

== ENCOUNTER → 2019-09-06 | Day surgery (SDC) | payer MEDICARE, BC ==
[2019-09-05 11:57] VITALS: BMI 34.7
[~2019-09-06] MED LIST changes: +IOPAMIDOL M200 10 ML VIAL ONE; +IV FLUID CONTINUATION 800 ML IV ONE; +MIDAZOLAM 2 MG/2 ML VIAL ONE; +fentaNYL (PF) 50 MCG/ML 2 ML AMP ONE; +methylPREDNISolone ACETATE 40 MG/ML 1 ML VIAL ONE
[2019-09-06 09:55] LABS: Glucose,Whole Blood 152 mg/dL (75-99)
[2019-09-06 10:02] VITALS: TEMP 97
[2019-09-06 11:06] VITALS: BP 128/71; PULSE 70; RESP 16
--- NOTE | 2019-09-06 11:20 | FL ---
EXAMINATION TYPE: FL guided pain mgmt statistic DATE OF EXAM: 09/06/2019 CLINICAL HISTORY: Low back and sacral pain. TECHNIQUE: Fluoroscopy. COMPARISON: None. FINDINGS: Fluoroscopic guidance was provided during neck pain relief procedure performed by Dr. Sanchez . A total of 27 seconds of fluoroscopic time was utilized during the procedure and 3 spot images are acquired. Images acquired shows needle localization at the level of the sacrum. Postsurgical change near lumbosacral junction noted. IMPRESSION: As Above.
--- NOTE | 2019-09-06 11:44 | P.PCN ---
Date of Procedure: 09/06/19 Procedure(s) Performed: Procedure= caudal epidural steroid injection with lysis of epidural adhesions under fluoroscopy guidance. 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 2 lumbar degenerative disc disease 3-lumbar radiculopathy Postoperative diagnosis= same Fluoroscopy was used for the procedure and fluoroscopic images were saved to the patient's chart Anesthesia= IV sedation with Versed and fentanyl , and local infiltration with lidocaine 1% 3 mL for skin and subcutaneous tissue infiltrations. Sedation time 21 minutes Description of the procedure= procedure risk and benefits discussed with the patient, including but not limited to risk of infection and bleeding and ALLERGIC reaction to the medication and no complete pain relief, paralysis discussed with the patient and the patient agreed with proceeding. The patient was taken to the operating room, placed in prone position, standard monitors applied, then after induction of anesthesia the lumbar and the caudal Area prepped with chlorhexidine , then under fluoroscopy guidance, local infiltration of the skin and subcutaneous tissue at the caudal hiatus area, then a 17-gauge Touhy needle advanced slowly under fluoroscopy and passed through the cauda hiatus and advanced to the epidural space upto the S3 level. Aspiration revealed no heme, no paresthesia, no cerebrospinal fluid, then Isovue 200 2mls was injected under live fluoroscopy that showed good spread in the epidural space, no intrathecal spread, then a 22 alena Racz catheter was advanced slowly through the needle up to the L5 level and I was able to break the scar tissue by advancing and withdrawing the catheter multiple times. Once lysis of adhesion was completed, a mixture of lidocaine 1% 1 mL +5 mL of preservative-free normal saline +40 mg of depomedrol was mixed together , and injected epidurally through the Racz catheter after negative aspiration. Patient tolerated the procedure well without any complication and will follow up with up in the pain clinic in 4 weeks. Of note, I had difficulty advancing the Tuouy needle through the caudal hiatus at first attempt. I was able to advance a 22-gauge Quincke needle into the caudal space, followed by the Tuouy needle without complications
== END ==
LOC: ORPAIN 09:33
PROVIDERS: ATTEND Anesthesiology
DX: M51.16 Intervertebral disc disorders with radiculopathy, lumbar region (principal); M96.1 Postlaminectomy syndrome, not elsewhere classified; E11.9 Type 2 diabetes mellitus without complications; Z79.82 Long term (current) use of aspirin
CPT/HCPCS: 62264; J2250; J1030; J3010; Q9966; C1894; 99152

== ENCOUNTER → 2019-10-17 | Outpatient (CLI) | payer MEDICARE, BC ==
[2019-10-17 12:14] VITALS: BP 137/77; PULSE 64; RESP 18; TEMP 98.4
--- NOTE | 2019-10-17 12:45 | P.PN ---
Subjective Progress Note Date: 10/17/19 This is a follow-up visit for this 79 years old female with a chronic history of severe low back pain patient diagnosed with lumbar spondylosis, and failed back surgery syndrome , and sacroiliitis and lumbar area, recently we've don caudal Epidural steroid injection with lysis of epidural adhesions, and his currently on Neurontin 400 mg 3 times a day and Percocet 10/325 when necessary prescription given by his primary care, he denies any motor or sensory deficits but he reported that the intensity of the pain interfering with her quality of life, He denies any side effects of the medication and he reported the current medication is not helping him enough to control his pain, currently patient re ported that he has severe low back pain with radiation to the lower extremity bilaterally with occasional numbness and tingling sensation, patient has difficulty ambulating and uses cane to walk Physical Examinations : -Constitutiona : Cooperative , not in acute distress . -HEENT : nech : supple , no Lymphadenopathy , normal thyroid size . : eyes : no ptosis , no icterus, no photophobia . - neurologic : Cranial nerve II to XII intact , no focal neurological deffecit . -psychatric : alert , oriented X 3 , appropriate affect , intact judgment and insight . -Lymphatic : no Lymphadenopathy . - musculoskeltal : Lumber spine moter stegnth lower extremities ,thigh and legs 5/5 Right side , 5/5 Left side deep tendon reflexes : normal Knee Jerk , normal ankle Jerk lumber facet Loading Test =positive Right , positive Left Range of motion of the lumbar spine Flexion 30 degrees, extension 10 degrees strait leg raising test = positive at 30degree Fabere test= positive Right , and positive LT . tenderness over the Sacroiliac joint on the Right , and Left sides Assessment and plan= chronic severe low back pain secondary to failed back surgery syndrome and lumbar area, lumbar spondylosis with lumbar facet arthropathy, sacroiliitis. Patient could benefit from caudal epidural steroid injection with lysis of epidural adhesions. Procedure risk and benefits and alternatives discussed with the patient he agreed with the preceding. Patient will continue to use his current medication Percocet 10/325 when necessary and Neurontin 400 mg 3 times a day as prescribed by his primary care Time with Patient: Less than 30 PQRS Measure Charge Sheet Measure #130: Documentation of Current Meds in Medical Chart: Patient's medications documented in chart Measure #226: Tobacco Use: Screen & Cessation Intervention: Pt is tobacco user ,interventions given Measure #111: Pneumonia Vaccination: Pneumococcal vaccine administered or previously received Measure #47: Advance Care Plan: Advance care planning discussed & documented, pt chose/unable to give Measure #412: Opioid Treatment Agreement: No documentation of signed opioid treatment agreement Measure #408: Opioid Therapy Follow-up Evaluation: Patient had NO f/u eval minimum every 3 months during opioid therapy Measure #317: Preventitive Care & Scrn High Bld Press & F/U: Normal blood pressure, f/u not required Measure #128: Body Mass Index (BMI) Screening & Follow-up: BMI documented ABOVE normal parameters - f/u documented Measure #131: Pain Assessment & Follow-up: Pain positive & plan documented, Fol low-up scheduled Measure #431: Unhealthy Alcohol Use Preventative Care & Scrn: Patient not identified as an unhealthy alcohol user PQRS Narrative: - Controlled Substance Measures Is patient prescribed a controlled substance at discharge?: No Objective - Vital Signs Vital signs: Vital Signs Temp 98.4 F 10/17/19 12:09 Pulse 64 10/17/19 12:09 Resp 18 10/17/19 12:09 BP 137/77 10/17/19 12:09 Pulse Ox 96 10/17/19 12:09
== END | disposition home or self-care (01) ==
LOC: PNWHC3 11:28
PROVIDERS: ATTEND Specialist
DX: M96.1 Postlaminectomy syndrome, not elsewhere classified (principal); M47.816 Spondylosis without myelopathy or radiculopathy, lumbar region; M46.96 Unspecified inflammatory spondylopathy, lumbar region; M46.1 Sacroiliitis, not elsewhere classified; G89.29 Other chronic pain; Z79.899 Other long term (current) drug therapy; Z79.891 Long term (current) use of opiate analgesic
CPT/HCPCS: 99211

== ENCOUNTER 2019-10-30 06:10 | Day surgery (SDC) | payer MEDICARE, BC ==
[2019-10-26 12:23] VITALS: BMI 34.2
[~2019-10-30 06:10] MED LIST changes: -IOPAMIDOL M200 10 ML VIAL ONE; -IV FLUID CONTINUATION 800 ML IV ONE; -MIDAZOLAM 2 MG/2 ML VIAL ONE; -fentaNYL (PF) 50 MCG/ML 2 ML AMP ONE; -methylPREDNISolone ACETATE 40 MG/ML 1 ML VIAL ONE
[2019-10-30 06:41] VITALS: RESP 16; TEMP 97.4
[2019-10-30] MEDS ORDERED: LIDOCAINE 1% (10MG/ML) FOR IV START INTRADERMA ONE (06:45)
[2019-10-30] MEDS ORDERED: fentaNYL (PF) 50 MCG/ML 2 ML AMP ONE (06:56)
[2019-10-30] MEDS ORDERED: MIDAZOLAM 2 MG/2 ML VIAL ONE (06:56)
[2019-10-30] MEDS ORDERED: ROPIVACAINE 5MG/ML 20ML VIAL ONE (06:56)
[2019-10-30] MEDS ORDERED: TRIAMCINOLONE ACETONIDE 40 MG/ML 1 ML VIAL ONE (06:56)
[2019-10-30] MEDS ORDERED: IOPAMIDOL M200 10 ML VIAL ONE (06:56)
[2019-10-30 06:57] LABS: Glucose,Whole Blood 109 mg/dL (75-99)
--- NOTE | 2019-10-30 07:15 | P.PCN ---
Date of Procedure: 10/30/19 Surgeon: Kaylee Rios Pathology: none sent Condition: stable Disposition: PACU Description of Procedure: PREOP DIAGNOSIS: Lumbar postlaminectomy syndrome. POSTOP DIAGNOSIS: Lumbar postlaminectomy syndrome. PROCEDURE: Caudal epidural steroid injection with epidurolysis and epidurogram under fluoroscopic guidance ANESTHESIA: Local with 1% lidocaine; IV moderate conscious sedation EBL: Minimal. PROCEDURE INDICATION: The patient with post-laminectomy syndrome with low back pain and radiculopathy radiating down in both legs, here for a caudal epidural steroid injection with epidurolysis. PROCEDURE DESCRIPTION: The patient was seen in the preoperative holding area consent was obtained then he was brought into the procedure room and placed in prone position. Skin was prepped with ChloraPrep and draped in a sterile manner. Lidocaine 1% was used to numb the skin up at the target point that was chosen as follows: The lateral view of fluoroscopy was used to identify the sacral hiatus and then after localizing the skin with lidocaine 1% I used 18- gauge epidural needle with a plastic sheath to go through the sacral hiatus and into the sacral canal and then injected 1 mL of Omnipaque for verification of needle tip position. After that the metal core of the needle was taken out and the plastic sheath was kept in the sacral canal. Then Racz catheter was introduced through the plastic sheath and into the epidural space at the sacral canal using the AP view of fluoroscopy up to L5-S1 level then I injected 2 MLS of Omnipaque which showed limited spread in the epidural space and after few back and forth movements of the Racz catheter I was able to introduce the catheter one level higher to the L4 5 level and then there was more spread of the Omnipaque after injecting 3 more mils of Omnipaque on the AP view of fluoroscopy. After that I injected 40 mg of Kenalog +2 MLS of Ropivacaine 0.5% +7 MLS of preservative-free normal saline to a total volume of 10 MLS in the epidural space. Patient tolerated procedure well. A copy of the needle placement x-ray was saved to the C-arm machine. COMPLICATIONS: None. DISPOSITION / PLANS: The patient was placed in a supine position and transferred to the recovery area in a stable condition for observation and was discharged from the recovery room after meeting discharge criteria. Home discharge instructions given to the patient by the staff. The patient was reexamined prior to discharge. The patient will schedule a follow up in the clinic in 2-4 weeks.
[2019-10-30] MEDS ORDERED: IV FLUID CONTINUATION 600 ML IV ONE (07:33)
[2019-10-30 07:51] VITALS: BP 132/64; PULSE 83
--- NOTE | 2019-10-30 09:10 | FL ---
Fluoroscopy HISTORY: Pain 17 seconds fluoroscopy time supplied to the referring clinician. 2 intraoperative C-arm images docum ent the procedure. See dictated report from anesthesia.
== END 2019-10-30 07:53 | disposition home or self-care (01) ==
LOC: ORPAIN 06:10
PROVIDERS: ATTEND Anesthesiology
DX: M96.1 Postlaminectomy syndrome, not elsewhere classified (principal); M54.10 Radiculopathy, site unspecified; E11.9 Type 2 diabetes mellitus without complications; Z79.82 Long term (current) use of aspirin
CPT/HCPCS: 62264; J2250; J3301; J3010; Q9966; J2795; C1894; 99152

== ENCOUNTER → 2019-11-26 | Outpatient (CLI) | payer MEDICARE, BC ==
[2019-11-26 09:18] VITALS: BP 178/77; PULSE 82; RESP 14; TEMP 98.2
--- NOTE | 2019-11-26 09:38 | P.PN ---
Subjective Progress Note Date: 11/26/19 This is a 79-year-old gentleman with history of chronic lower back pain with radiation to the lower extremities bilaterally with numbness and tingling going down to both calves. The patient's pain gets worse by prolonged walking. He had caudal epidural steroid injection about a month ago which gave him some pain relief which lasted only for 1 week. The patient is diabetic and takes Aleve for his pain. The pain wakes him up at night however he denies any weight loss. Patient denies new-onset weakness, bowel/bladder incontinence, or any other signs or symptoms of cauda equina syndrome. There are no signs of acute intoxication, and no indications of medication diversion or overuse. In addition to above, 13-point review of systems is also negative for chest pain, shortness of breath, changes in vision, changes in hearing, new onset weakness, abdominal pain, diarrhea, extreme fatigue, malaise, fever, skin changes, homicidal or suicidal ideation, or bowel or bladder incontinence. Vital Signs: Reviewed in EMR Gen: AAOx3, NAD HEENT: PERRLA,hearing grossly normal Pulm: resp unlabored Neck: supple, trachea midline Neuro exam of the lower extremities: Normal muscle strength in the lower extremities bilaterally Positive tenderness around the right sacroiliac joint Manuel's test mildly positive on the right side Neuro: CN II-XII grossly intact, Imaging: Reviewed in EMR/chart Assessment: Failed back surgery syndrome Right sacroiliitis Diabetes Plan: 1. Explanation: Opioid and psychological risk scores were reviewed. Diagnoses, prognoses, and multiple treatment options including but not limited to physical therapy, interventional therapies, adjuvant medical therapies, narcotic medication therapies, and surgery were discussed with the patient and all questions were answered to the patient's satisfaction. 2. Opioid agreement: Signed with the patient and the patient is warned not to use opioids while driving or before driving and not to combine opioids with benzodiazepines or alcohol. 3. Counseling: The patient was counseled extensively on SMOKING CESSATION, BODY MASS INDEX, EXERCISE. Specifically, the patient was instructed regarding the importance of smoking cessation, obesity, and exercise in the context of both ch ronic pain and overall health. 4. Procedures: Schedule for a right sacroiliac joint steroid injection under fluoroscopic guidance 5. Consultations: None 6. Investigations: None 7. Medications: None prescribed today 8. Disposition: Return to the above-mentioned procedure as soon as possible 9. Maps were reviewed and were appropriate. Objective - Vital Signs Vital signs: Vital Signs Temp 98.2 F 11/26/19 09:09 Pulse 82 11/26/19 09:09 Resp 14 11/26/19 09:09 BP 178/77 11/26/19 09:09 Pulse Ox 98 11/26/19 09:09
== END | disposition home or self-care (01) ==
LOC: PNWHC3 08:44
PROVIDERS: ATTEND Anesthesiology
DX: M96.1 Postlaminectomy syndrome, not elsewhere classified (principal); M46.1 Sacroiliitis, not elsewhere classified
CPT/HCPCS: 99211

== ENCOUNTER → 2020-01-08 | Outpatient (CLI) | payer MEDICARE, BC ==
--- NOTE | 2020-01-08 15:41 | XR ---
EXAMINATION TYPE: XR tibia fibula RT DATE OF EXAM: 01/08/2020 CLINICAL HISTORY: Right lower extremity pain. No known injury. Pain started months ago in right ankle , now with radiation up to inferior knee. TECHNIQUE: Two views of the right tibia and fibula are obtained. COMPARISON: None. FINDINGS: There is no acute fracture or dislocation seen in the right tibia or fibula. The knee and ankle joints are maintained. There is mild degenerative spurring of the patellofemoral joint. There a re vascular calcifications. Normal osseous mineralization. IMPRESSION: 1. No acute fracture or dislocation seen in the right tibia or fibula. 2. Mild degenerative spurring of the patellofemoral joint. 3. Calcified vascular atherosclerotic disease of the right lower extremity.
--- NOTE | 2020-01-08 15:46 | XR ---
EXAMINATION TYPE: XR chest 2V DATE OF EXAM: 01/08/2020 CLINICAL HISTORY: R52 R rib pain. TECHNIQUE: Frontal and lateral view of the chest. COMPARISON: 08/28/2018 chest radiograph. 05/25/2017 CT chest. FINDINGS: Tortuous thoracic aorta with calcified atherosclerotic disease redemonstrated. Redemonstra loreto calcifications overlying the right upper lung and bilateral neck are likely vascular, as was demo nstrated on 2018 CT comparison. The cardiomediastinal silhouette is within normal limits for size. Pu lmonary vasculature is normal. There is no focal air space opacity, pleural effusion, or pneumothorax seen. No displaced osseous fracture. Degenerative changes of the spine. Incompletely visualized spin al fixation hardware. IMPRESSION: No acute cardiopulmonary process. No displaced osseous fracture.
== END | disposition home or self-care (01) ==
LOC: RADXRMAIN 06:21
PROVIDERS: ATTEND Family Medicine
DX: M76.891 Other specified enthesopathies of right lower limb, excluding foot (principal); I70.291 Other atherosclerosis of native arteries of extremities, right leg; R07.81 Pleurodynia
CPT/HCPCS: 71046

== ENCOUNTER → 2020-08-29 | Outpatient (CLI) | payer MEDICARE, BC ==
--- NOTE | 2020-09-03 12:48 | P.ARTDOP ---
Arterial Doppler LOWER EXTREMITY ARTERIAL DOPPLER: DATE OF SERVICE: 08/29/2020 Reason for study: Bilateral leg numbness with sitting. Patient is status post bilateral leg bypasses. Doppler waveforms: Multiphasic bilaterally throughout. Pulse volume recording: []. Pressure gradients: None. Ankle-brachial indices: Cannot be occluded. Toe brachial indices: 0.52 on the right, 0.48 on the left Impression: Normal study. Mild decrease in toe pressures probably more of a vasospastic phenomenon.
== END | disposition home or self-care (01) ==
LOC: RADUSWWP 12:43
PROVIDERS: ATTEND Family Medicine
DX: I73.9 Peripheral vascular disease, unspecified (principal)
CPT/HCPCS: 93922

== ENCOUNTER 2021-02-15 16:46 | Inpatient (IN) | payer MEDICARE, BC ==
--- NOTE | 2021-02-15 17:35 | ED ---
Male Urogenital HPI - General Stated complaint: unable to urinate/abd pain/bleeding out penis Time Seen by Provider: 02/15/21 17:21 Source: patient Mode of arrival: ambulatory Limitations: no limitations - History of Present Illness Initial comments: Castro is a 80-year-old male who presents to the emergency department today via private vehicle for evaluation of inability to urinate. Patient reports he last urinated last night. Today he has passed large blood clots which is atypical for him. Patient has been experiencing chronic abdominal pain recently in his an outpatient abdominal CT ordered by his primary care but has been unable to schedule it. - Related Data Home Medications Medication Instructions Recorded Confirmed metFORMIN HCL [Glucophage] 1,000 mg PO AC-SUPPER 10/06/13 02/15/21 Vitamin B Complex 1 cap PO DAILY 05/02/14 02/15/21 Cholecalciferol [Vitamin D3 (25 1,000 unit PO DAILY 10/13/15 02/15/21 Mcg = 1000 Iu)] Ubidecarenone [Co Q-10] 100 mg PO DAILY 10/13/15 02/15/21 Psyllium Husk [Metamucil] 0.4 gm PO TID 03/22/17 02/15/21 Atorvastatin [Lipitor] 20 mg PO HS 09/28/17 02/15/21 Ascorbic Acid [Vitamin C] 1,000 mg PO DAILY 09/05/18 02/15/21 Aspirin 325 mg PO DAILY 09/05/18 02/15/21 Indapamide 2.5 mg PO DAILY 09/05/18 02/15/21 Levothyroxine Sodium [Synthroid] 25 mcg PO DAILY 11/09/18 02/15/21 oxyCODONE-APAP 10-325MG [Percocet 1 tab PO BID PRN 03/05/19 02/15/21 10-325 mg] Gabapentin [Neurontin] 400 mg PO TID PRN 03/21/19 02/15/21 rOPINIRole HCL [Requip] 4 mg PO BID 03/21/19 02/15/21 Atenolol [Tenormin] 50 mg PO DAILY 09/06/19 02/15/21 Ferrous Sulfate 134mg 134 mg PO DAILY 02/15/21 02/15/21 Linzess Unknown Dose 1 tab PO DAILY 02/15/21 02/15/21 Omeprazole 40 mg PO DAILY 02/15/21 02/15/21 Pioglitazone [Actos] 30 mg PO DAILY 02/15/21 02/15/21 Allergies Allergy/AdvReac Type Severity Reaction Status Date / Time No Known Allergies Allergy Verified 02/15/21 20:34 Review of Systems ROS Statement: Those systems with pertinent positive or pertinent negative responses have been documented in the HPI. ROS Other: All systems not noted in ROS Statement are negative. 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,Hx prostate cancer-42 days radiation;Chronic back pain; Chronic anemia, peptic ulcer disease, CVA in June 2015 and MRI of the brain showed increased signal within the cortex of the right frontal and frontoparietal lobes consistent with infarcts., aortic aneurysm with previous insertion of an aortic stent, carotid artery stenosis, increased lower back pain History of Any Multi-Drug Resistant Organisms: MRSA Date of last positivie culture/infection: 2011 MDRO Source:: abdominal incision Past Surgical History: Back Surgery, Bladder Surgery, Cholecystectomy, Hernia Repair, Prostate Surgery Additional Past Surgical History / Comment(s): Pain clinic procedure, Prostatectomy, bladder suspension surgery, and vascular stenting of an aortic aneurysm, hemorrhoidectomy, bilateral cataract surgery, back surgery X4 (5-4-16 LAMINECTOMY),rt carotid,hernia x2 Past Anesthesia/Blood Transfusion Reactions: No Reported Reaction Past Psychological History: No Psychological Hx Reported Smoking Status: Former smoker Past Alcohol Use History: None Reported Past Drug Use History: None Reported - Past Family History Brother(s) Family Medical History: CVA/TIA Son(s) Family Medical History: No Reported History Father Family Medical History: Cancer Additional Family Medical History / Comment(s): BRAIN Mother Family Medical History: Cancer Additional Family Medical History / Comment(s): "BLOOD CANCER" General Exam - General Exam Comments Initial Comments: Physical Exam GENERAL: Patient is well-developed and well-nourished. Patient is nontoxic and well-hydrated and is in no distress. HENT: Normocephalic, Atraumatic. EYES: PERRL, EOMI PULMONARY: Unlabored respirations. CARDIOVASCULAR: RRR Warm and well perfused extremities ABDOMEN: Well healed surgical incisions SKIN: No rashes or bruising : Normal external genitalia Gross hematuria noted, clots at uretheral meatus NEUROLOGIC: Alert and oriented Normal speech Normal gait MUSCULOSKELETAL: Moving all extremities with no apparent injury PSYCHIATRIC: No SI/HI Limitations: no limitations Course Vital Signs 02/15/21 20:00 Pulse Rate 89 Blood Pressure 139/87 O2 Sat by Pulse 64 L Oximetry Medical Decision Making - Medical Decision Making Patient was seen and evaluated, Hernandez catheter was placed, patient had gross hematuria with clots, the Hernandez catheter was exchanged for a 3-way and he was irrigated, labs were obtained hemoglobin stable, creatinine is stable, CT of the abdomen reveals possible bladder mass versus clot Given the patient has persistent hematuria with clots is not stable for dis charge home as he is requiring recurrent irrigation, patient care was discussed with urology Dr. Noble and Dr. Rios who accepts the admission to Dr. Hudson - Lab Data Result diagrams: 02/15/21 18:47 02/15/21 18:47 Lab Results 02/15/21 02/15/21 02/15/21 Range/Units 17:33 18:47 18:47 WBC 10.5 (3.8-10.6) k/uL RBC 3.66 L (4.30-5.90) m/uL Hgb 11.1 L (13.0-17.5) gm/dL Hct 35.4 L (39.0-53.0) % MCV 96.8 (80.0-100.0) fL MCH 30.4 (25.0-35.0) pg MCHC 31.4 (31.0-37.0) g/dL RDW 13.8 (11.5-15.5) % Plt Count 220 (150-450) k/uL MPV 9.6 Neutrophils % 89 % Lymphocytes % 6 % Monocytes % 4 % Eosinophils % 0 % Basophils % 1 % Neutrophils # 9.4 H (1.3-7.7) k/uL Lymphocytes # 0.6 L (1.0-4.8) k/uL Monocytes # 0.4 (0-1.0) k/uL Eosinophils # 0.0 (0-0.7) k/uL Basophils # 0.1 (0-0.2) k/uL PT 10.6 (9.0-12.0) sec INR 1.0 (<1.2) APTT 26.0 (22.0-30.0) sec Sodium (137-145) mmol/L Potassium (3.5-5.1) mmol/L Chloride (98-107) mmol/L Carbon Dioxide (22-30) mmol/L Anion Gap mmol/L BUN (9-20) mg/dL Creatinine (0.66-1.25) mg/dL Est GFR (CKD-EPI)AfAm (>60 ml/min/1.73 sqM) Est GFR (CKD-EPI)NonAf (>60 ml/min/1.73 sqM) Glucose (74-99) mg/dL Calcium (8.4-10.2) mg/dL Total Bilirubin (0.2-1.3) mg/dL AST (17-59) U/L ALT (4-49) U/L Alkaline Phosphatase (38-126) U/L Total Protein (6.3-8.2) g/dL Albumin (3.5-5.0) g/dL Urine Color Brown Urine Appearance Bloody (Clear) Urine RBC >182 H (0-5) /hpf Urine WBC 50 H (0-5) /hpf Urine Bacteria Moderate H (None) /hpf Urine Yeast (Budding) Many H (None) /hpf 02/15/21 Range/Units 18:47 WBC (3.8-10.6) k/uL RBC (4.30-5.90) m/uL Hgb (13.0-17.5) gm/dL Hct (39.0-53.0) % MCV (80.0-100.0) fL MCH (25.0-35.0) pg MCHC (31.0-37.0) g/dL RDW (11.5-15.5) % Plt Count (150-450) k/uL MPV Neutrophils % % Lymphocytes % % Monocytes % % Eosinophils % % Basophils % % Neutrophils # (1.3-7.7) k/uL Lymphocytes # (1.0-4.8) k/uL Monocytes # (0-1.0) k/uL Eosinophils # (0-0.7) k/uL Basophils # (0-0.2) k/uL PT (9.0-12.0) sec INR (<1.2) APTT (22.0-30.0) sec Sodium 139 (137-145) mmol/L Potassium 4.6 (3.5-5.1) mmol/L Chloride 105 (98-107) mmol/L Carbon Dioxide 19 L (22-30) mmol/L Anion Gap 15 mmol/L BUN 36 H (9-20) mg/dL Creatinine 1.26 H (0.66-1.25) mg/dL Est GFR (CKD-EPI)AfAm 63 (>60 ml/min/1.73 sqM) Est GFR (CKD-EPI)NonAf 54 (>60 ml/min/1.73 sqM) Glucose 134 H (74-99) mg/dL Calcium 9.8 (8.4-10.2) mg/dL Total Bilirubin 0.9 (0.2-1.3) mg/dL AST 35 (17-59) U/L ALT 21 (4-49) U/L Alkaline Phosphatase 124 (38-126) U/L Total Protein 7.1 (6.3-8.2) g/dL Albumin 4.3 (3.5-5.0) g/dL Urine Color Urine Appearance (Clear) Urine RBC (0-5) /hpf Urine WBC (0-5) /hpf Urine Bacteria (None) /hpf Urine Yeast (Budding) (None) /hpf Disposition Clinical Impression: Gross hematuria Disposition: ADMITTED IP TO THIS [facility] Condition: Serious Is patient prescribed a controlled substance at d/c from ED?: No
[2021-02-15 18:05] LABS: Bacteria,Urine Moderate /hpf; Budding Yeast,Urine Many /hpf; RBC,Urine >182 /hpf (0-5); WBC,Urine 50 /hpf (0-5)
[2021-02-15 18:09] LABS: Color,Urine Brown
[2021-02-15 18:10] LABS: Appearance,Urine Bloody (Clear)
[2021-02-15 19:08] LABS: Basophils # (A) 0.1 k/uL (0-0.2); Basophils % (A) 1 %; Eosinophils % (A) 0 %; HCT 35.4 % (39.0-53.0); HGB 11.1 gm/dL (13.0-17.5); Lymphocytes # (A) 0.6 k/uL (1.0-4.8); Lymphocytes % (A) 6 %; MCH 30.4 pg (25.0-35.0); MCHC 31.4 g/dL (31.0-37.0); MCV 96.8 fL (80.0-100.0); Mean Platelet Volume 9.6; Monocytes # (A) 0.4 k/uL (0-1.0); Monocytes % (A) 4 %; Neutrophils # (A) 9.4 k/uL (1.3-7.7); Neutrophils % (A) 89 %; Platelet Count 220 k/uL (150-450); RBC 3.66 m/uL (4.30-5.90); RDW 13.8 % (11.5-15.5); WBC 10.5 k/uL (3.8-10.6)
[2021-02-15 19:22] LABS: Prothrombin Time 10.6 sec (9.0-12.0)
[2021-02-15 19:24] LABS: Albumin 4.3 g/dL (3.5-5.0); Calcium 9.8 mg/dL (8.4-10.2); Potassium 4.6 mmol/L (3.5-5.1); Total Bilirubin 0.9 mg/dL (0.2-1.3); Total Protein 7.1 g/dL (6.3-8.2)
[2021-02-15] MEDS ORDERED: MORPHINE SULFATE 4 MG/ML SYRINGE IVP STA (19:56)
[2021-02-15] MEDS ORDERED: LORazepam 2 MG/ML INJ IV STA (19:57)
--- NOTE | 2021-02-15 21:08 | CT ---
EXAMINATION TYPE: CT abdomen pelvis w con DATE OF EXAM: 02/15/2021 COMPARISON: 01/08/2018 HISTORY: Gross hematuria. CT DLP: 1362.3 mGycm Automated exposure control for dose reduction was used. CONTRAST: Performed with IV Contrast, patient injected with 100 mL of Isovue 300. Images obtained from the diaphragm to the floor the pelvis with IV contrast. Lung bases are clear. There is no pleural effusion. Heart size is normal. There is no pericardial eff usion. Liver spleen and stomach pancreas appear intact. The bowel gas are not dilated. Gallbladder ap pears absent. There is no adrenal mass. Kidneys show satisfactory contrast opacification. There is no hydronephrosi s. There are bilateral renal cortical cysts and measure up to 4 cm. There is aneurysm of the lower ab dominal aorta with endograft. The aneurysm measures up to 5.7 cm in diameter. There is Hernandez catheter in the urinary bladder. Bladder is almost empty. There is mixed attenuation in the urinary bladder. This is consistent with some blood clot. Bladder mass not excluded. There is no inguinal hernia. There is no mesenteric edema. There is no ascites or free air. There is no bowel obstruction. There i s spondylotic changes in the lumbar spine. There is posterior fusion surgery. The bony pelvis is inta ct. Hip joints appear intact. IMPRESSION: Abdominal aortic aneurysm without change. There is patency of the endograft. Urinary bladder wall thickening and increased density could relate to blood clot or tumor and appears new compared to old exam.
[2021-02-15] MEDS ORDERED: NALOXONE 0.4 MG/ML 1 ML VIAL IV PRN (22:08)
[2021-02-15] MEDS ORDERED: ALPRAZolam 0.25 MG TAB PO PRN (22:08)
[2021-02-15] MEDS: HYDROmorphone 0.5 MG/0.5 ML SYRINGE IVP PRN (22:23)
[2021-02-15] MEDS: MORPHINE SULFATE 4 MG/ML SYRINGE IV PRN (23:18)
[2021-02-16] MEDS: MORPHINE SULFATE 4 MG/ML SYRINGE IV PRN ×2 (10:18→13:49)
[2021-02-16] MEDS ORDERED: GABAPENTIN 400 MG CAP PO PRN (12:44)
--- NOTE | 2021-02-16 13:19 | P.GSCN ---
History of Present Illness Consult date: 02/16/21 Reason for Consult: Gross hematuria History of present illness: This Is a 80-year-old male that presented to the hospital with inability to uri lois and gross hematuria. He indicated hematuria has been ongoing for about 24 hours. He has history of prostate cancer, treated with a prostatectomy back in 2003, and required salvage radiation in 2009. He has been having recurrent gross hematuria since receiving his radiation. His last hospital admission for hematuria was in 2018. He denies any dysuria or any flank pain. CT scan was obtained on presentation which showed evidence of a clot versus a mass within the bladder. An 18-Jamaican Hernandez was placed on presentation which clotted off, this was subsequently upsized to a 20-Jamaican Hernandez, has been draining, but has required irrigation. Review of Systems - Constitutional Denies fever, Denies weight loss - EENT Ears, nose, mouth and throat: Denies dysphagia - Cardiovascular Denies chest pain, Denies shortness of breath - Respiratory Denies cough, Denies 7 - Gastrointestinal Reports abdominal pain - Genitourinary Reports hematuria - Neurological Denies headaches, Denies syncope 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,Hx prostate cancer-42 days radiation;Chronic back pain; Chronic anemia, peptic ulcer disease, CVA in June 2015 and MRI of the brain showed increased signal within the cortex of the right frontal and frontoparietal lobes consistent with infarcts., aortic aneurysm with previous insertion of an aortic stent, carotid artery stenosis, increased lower back pain History of Any Multi-Drug Resistant Organisms: MRSA Year Discovered:: 2011 MDRO Source:: abdominal incision Past Surgical History: Back Surgery, Bladder Surgery, Cholecystectomy, Hernia Repair, Prostate Surgery Additional Past Surgical History / Comment(s): Pain clinic procedure, Prostatectomy, bladder suspension surgery, and vascular stenting of an aortic aneurysm, hemorrhoidectomy, bilateral cataract surgery, back surgery X4 (5-4-16 LAMINECTOMY),rt carotid,hernia x2 Past Anesthesia/Blood Transfusion Reactions: No Reported Reaction Past Psychological History: No Psychological Hx Reported Additional Psychological History / Comment(s): . Smoking Status: Former smoker Past Alcohol Use History: None Reported Additional Past Alcohol Use History / Comment(s): Pt states he started smoking in 1955 and quit in 1987. SMOKED 2 PPD, SMOKED FOR 33 YEARS Past Drug Use History: None Reported - Past Family History Brother(s) Family Medical History: CVA/TIA Son(s) Family Medical History: No Reported History Father Family Medical History: Cancer Additional Family Medical History / Comment(s): BRAIN Mother Family Medical History: Cancer Additional Family Medical History / Comment(s): "BLOOD CANCER" Medications and Allergies Home Medications Medication Instructions Recorded Confirmed Type metFORMIN HCL [Glucophage] 1,000 mg PO AC-SUPPER 10/06/13 02/15/21 History Vitamin B Complex 1 cap PO DAILY 05/02/14 02/15/21 History Cholecalciferol [Vitamin D3 (25 1,000 unit PO DAILY 10/13/15 02/15/21 History Mcg = 1000 Iu)] Ubidecarenone [Co Q-10] 100 mg PO DAILY 10/13/15 02/15/21 History Psyllium Husk [Metamucil] 0.4 gm PO TID 03/22/17 02/15/21 History Ascorbic Acid [Vitamin C] 1,000 mg PO DAILY 09/05/18 02/15/21 History Aspirin 325 mg PO DAILY 09/05/18 02/15/21 History Levothyroxine Sodium [Synthroid] 25 mcg PO DAILY 11/09/18 02/15/21 History oxyCODONE-APAP 10-325MG [Percocet 1 tab PO BID PRN 03/05/19 02/15/21 History 10-325 mg] Gabapentin [Neurontin] 400 mg PO TID PRN 03/21/19 02/15/21 History rOPINIRole HCL [Requip] 4 mg PO BID 03/21/19 02/15/21 History Ferrous Sulfate 134mg 134 mg PO DAILY 02/15/21 02/15/21 History Pioglitazone [Actos] 30 mg PO DAILY 02/15/21 02/15/21 History Omeprazole Magnesium [PriLOSEC] 40 mg PO DAILY 02/16/21 02/16/21 History Allergies Allergy/AdvReac Type Severity Reaction Status Date / Time No Known Allergies Allergy Verified 02/15/21 20:34 Surgical - Exam Vital Signs Pulse BP Pulse Ox 89 139/87 64 L 02/15/21 20:00 02/15/21 20:00 02/15/21 20:00 - General no distress, no pain - Eyes normal ocular movement, no pale - ENT normal nares, normal mucosa - Respiratory normal expansion, normal respiratory effort - Abdomen Abdomen: soft, non tender, no distended - Psychiatric oriented to time, oriented to person, oriented to place Results - Labs 02/15/21 18:47 02/15/21 18:47 Abnormal Lab Results - Last 24 Hours (Table) 02/15/21 02/15/21 02/15/21 Range/Units 17:33 18:47 18:47 RBC 3.66 L (4.30-5.90) m/uL Hgb 11.1 L (13.0-17.5) gm/dL Hct 35.4 L (39.0-53.0) % Neutrophils # 9.4 H (1.3-7.7) k/uL Lymphocytes # 0.6 L (1.0-4.8) k/uL Carbon Dioxide 19 L (22-30) mmol/L BUN 36 H (9-20) mg/dL Creatinine 1.26 H (0.66-1.25) mg/dL Glucose 134 H (74-99) mg/dL Urine RBC >182 H (0-5) /hpf Urine WBC 50 H (0-5) /hpf Urine Bacteria Moderate H (None) /hpf Urine Yeast (Budding) Many H (None) /hpf Microbiology - Last 24 Hours (Table) 02/15/21 17:33 Urine Culture - Preliminary Urine,Voided Diabetes panel 02/15/21 Range/Units 18:47 Sodium 139 (137-145) mmol/L Potassium 4.6 (3.5-5.1) mmol/L Chloride 105 (98-107) mmol/L Carbon Dioxide 19 L (22-30) mmol/L BUN 36 H (9-20) mg/dL Creatinine 1.26 H (0.66-1.25) mg/dL Glucose 134 H (74-99) mg/dL Calcium 9.8 (8.4-10.2) mg/dL AST 35 (17-59) U/L ALT 21 (4-49) U/L Alkaline Phosphatase 124 (38-126) U/L Total Protein 7.1 (6.3-8.2) g/dL Albumin 4.3 (3.5-5.0) g/dL Calcium panel 02/15/21 Range/Units 18:47 Calcium 9.8 (8.4-10.2) mg/dL Albumin 4.3 (3.5-5.0) g/dL Pituitary panel 02/15/21 Range/Units 18:47 Sodium 139 (137-145) mmol/L Potassium 4.6 (3.5-5.1) mmol/L Chloride 105 (98-107) mmol/L Carbon Dioxide 19 L (22-30) mmol/L BUN 36 H (9-20) mg/dL Creatinine 1.26 H (0.66-1.25) mg/dL Glucose 134 H (74-99) mg/dL Calcium 9.8 (8.4-10.2) mg/dL Adrenal panel 02/15/21 Range/Units 18:47 Sodium 139 (137-145) mmol/L Potassium 4.6 (3.5-5.1) mmol/L Chloride 105 (98-107) mmol/L Carbon Dioxide 19 L (22-30) mmol/L BUN 36 H (9-20) mg/dL Creatinine 1.26 H (0.66-1.25) mg/dL Glucose 134 H (74-99) mg/dL Calcium 9.8 (8.4-10.2) mg/dL Total Bilirubin 0.9 (0.2-1.3) mg/dL AST 35 (17-59) U/L ALT 21 (4-49) U/L Alkaline Phosphatase 124 (38-126) U/L Total Protein 7.1 (6.3-8.2) g/dL Albumin 4.3 (3.5-5.0) g/dL Assessment and Plan Assessment: 72-year-old male admitted to the hospital with gross hematuria, hemoglobin stable on presentation. He follows up with Dr. Lorenzana, history of prostate cancer treated with prostatectomy back in 2003, required salvage radiation 2009. CT reviewed most likely clot within the bladder, but bladder mass cannot be ruled out. Urine is mostly consistent of all blood clots -Repeat CBC -We'll upsize to a 22-Jamaican hematuria catheter, irrigate every 4 hours
--- NOTE | 2021-02-16 13:39 | P.HPIM ---
History of Present Illness H&P Date: 02/16/21 HISTORY OF PRESENT ILLNESS This is a 80-year-old male patient of Dr. Judge with past medical history of hypertension and hypertensive cardio vascular disease with left ventricular hypertrophy, hyperlipidemia, diabetes mellitus type 2, history of prostate cancer status post prostatectomy followed by radiation therapy and Lupron injections, history of gastroesophageal reflux disease, generalized osteoarthritis with a chronic low back pain and underwent multiple back surgeries and procedures. Patient presented due to recurrent gross hematuria as well as abdominal pain. He underwent a CAT scan of the abdomen and pelvis with contrast revealed abdominal aortic aneurysm without change. There is patency of the endograft. Urinary bladder wall thickening and increased density could relate to blood clot or tumor and appears new. He has been afebrile, heart rate 91, blood pressure 122/73, pulse ox 94% on room air. Hemoglobin 11.1. BUN 36 and creatinine 1.26. Urinalysis was brown bloody, RBCs greater than 182, wbc's 50, bacteria moderate, yeast budding many. Coronavirus PCR not detected. Patient admitted to the observation unit and he has been seen by urology and ordered for up size to catheter and irrigate every 4 hours. REVIEW OF SYSTEMS Constitutional: No fever, no chills, no night sweats. No weight change. No weakness, fatigue or lethargy. No daytime sleepiness. EENT: No headache. No blurred vision or double vision, no loss of vision. No loss of Hearing, no ringing in the ears, no dizziness. No nasal drainage or congestion. No epistaxis. No sore throat. Lungs: No shortness of breath, cough, no sputum production. No wheezing. Cardiovascular: No chest pain, no lower extremity edema. No palpitations. No paroxysmal nocturnal dyspnea. No orthopnea. No lightheadedness or dizziness. No syncopal episodes. Abdominal: No abdominal pain. No nausea, vomiting. No diarrhea. No constipation. No bloody or tarry stools. No loss of appetite. Genitourinary: No dysuria, increased frequency, urgency. No urinary retention. Reports hematuria. Musculoskeletal: No myalgias. No muscle weakness, no gait dysfunction, no frequent falls. No back pain. No neck pain. Integumentary: No wounds, no lesions. No rash or pruritus. No unusual bruising. No change in hair or nails. Neurologic: No aphasia. No facial droop. No change in mentation. No head injury. No headache. No paralysis. No paresthesia. Psychiatric: No depression. No anxiety. No mood swings. Endocrine: No abnormal blood sugars. No weight change. No excessive sweating or thirst. No cold intolerance. SOCIAL HISTORY Patient was smoker for 25-30 years approximately one pack per day and quit 30+ years ago. He denies any marijuana use, alcohol use or illegal drug use. He is and lives at home with his . FAMILY HISTORY Father in his 60s from brain cancer. Mother in her 60s from leukemia. Patient has 2 brothers that have passed, one was kicked in the face by a horse, second brother from CVA. Patient has one son with no major medical problems. PHYSICAL EXAMINATION Gen: This is a 80-year-old male. He is resting in a chair and appears to be comfortable and in no acute distress. HEENT: Head is atraumatic, normocephalic. Pupils equal, round. Sclerae is anicteric. NECK: Supple. No JVD. No lymphadenopathy. No thyromegaly. LUNGS: Clear to auscultation. No wheezes or rhonchi. No intercostal retractions. HEART: Regular rate and rhythm. No murmur. ABDOMEN: Soft. Bowel sounds are present. No masses. No tenderness. Hernandez catheter with dark red liquid and clots. EXTREMITIES: No pedal edema. No calf tenderness. NEUROLOGICAL: Patient is awake, alert and oriented x3. Cranial nerves 2 through 12 are grossly intact. ASSESSMENT AND PLAN 1. Gross hematuria secondary to prostate cancer/radiation. Consult with urology appreciated. Hernandez catheter to be up size and irrigate every 4 hours, monitor hemoglobin. 2. Chronic anemia of chronic disease and possible chronic blood loss. Hemoglobin is currently stable, recheck CBC in the morning. Continue ferrous sulfate daily. 3. Hypertension and hypertensive cardiovascular disease. Patient is no longer on antihypertensive medications. 4. Hyperlipidemia. Patient is not on statin. 5. Diabetes mellitus type 2. Continue metformin 1000 mg before supper and Actos 30 mg daily, NovoLog scale as needed. 6. History of prostate cancer status post prostatectomy followed by radiation therapy and Lupron injections with chronic hematuria. 7. Gastroesophageal reflux disease. Continue omeprazole 40 mg daily. 8. Chronic low back pain. Continue Percocet 1 twice daily as needed, gabapentin 400 mg 3 times daily. 9. DVT prophylaxis. SCDs and WINDY hose. 10. COVID-19 testing negative. Patient has been hospitalized during a pandemic. Patient will be admitted to the hospital for a minimum of 2 night stay. DISCHARGE PLAN Home. Impression and plan of care have been directed as dictated by the signing physician. Krysta Castro nurse practitioner acting as scribe for signing physician. 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,Hx prostate cancer-42 days radiation;Chronic back pain; Chronic anemia, peptic ulcer disease, CVA in June 2015 and MRI of the brain showed increased signal within the cortex of the right frontal and frontoparietal lobes consistent with infarcts., aortic aneurysm with previous insertion of an aortic stent, carotid artery stenosis, increased lower back pain History of Any Multi-Drug Resistant Organisms: MRSA Date of last positivie culture/infection: 2011 MDRO Source:: abdominal incision Past Surgical History: Back Surgery, Bladder Surgery, Cholecystectomy, Hernia Repair, Prostate Surgery Additional Past Surgical History / Comment(s): Pain clinic procedure, Prostatectomy, bladder suspension surgery, and vascular stenting of an aortic aneurysm, hemorrhoidectomy, bilateral cataract surgery, back surgery X4 (5-4-16 LAMINECTOMY),rt carotid,hernia x2 Past Anesthesia/Blood Transfusion Reactions: No Reported Reaction Past Psychological History: No Psychological Hx Reported Additional Psychological History / Comment(s): . Smoking Status: Former smoker Past Alcohol Use History: None Reported Additional Past Alcohol Use History / Comment(s): Pt states he started smoking in 1955 and quit in 1987. SMOKED 2 PPD, SMOKED FOR 33 YEARS Past Drug Use History: None Reported - Past Family History Brother(s) Family Medical History: CVA/TIA Son(s) Family Medical History: No Reported History Father Family Medical History: Cancer Additional Family Medical History / Comment(s): BRAIN Mother Family Medical History: Cancer Additional Family Medical History / Comment(s): "BLOOD CANCER" Medications and Allergies Home Medications Medication Instructions Recorded Confirmed Type metFORMIN HCL [Glucophage] 1,000 mg PO AC-SUPPER 10/06/13 02/15/21 History Vitamin B Complex 1 cap PO DAILY 05/02/14 02/15/21 History Cholecalciferol [Vitamin D3 (25 1,000 unit PO DAILY 10/13/15 02/15/21 History Mcg = 1000 Iu)] Ubidecarenone [Co Q-10] 100 mg PO DAILY 10/13/15 02/15/21 History Psyllium Husk [Metamucil] 0.4 gm PO TID 03/22/17 02/15/21 History Ascorbic Acid [Vitamin C] 1,000 mg PO DAILY 09/05/18 02/15/21 History Aspirin 325 mg PO DAILY 09/05/18 02/15/21 History Levothyroxine Sodium [Synthroid] 25 mcg PO DAILY 11/09/18 02/15/21 History oxyCODONE-APAP 10-325MG [Percocet 1 tab PO BID PRN 03/05/19 02/15/21 History 10-325 mg] Gabapentin [Neurontin] 400 mg PO TID PRN 03/21/19 02/15/21 History rOPINIRole HCL [Requip] 4 mg PO BID 03/21/19 02/15/21 History Ferrous Sulfate 134mg 134 mg PO DAILY 02/15/21 02/15/21 History Pioglitazone [Actos] 30 mg PO DAILY 02/15/21 02/15/21 History Omeprazole Magnesium [PriLOSEC] 40 mg PO DAILY 02/16/21 02/16/21 History Allergies Allergy/AdvReac Type Severity Reaction Status Date / Time No Known Allergies Allergy Verified 02/15/21 20:34 Physical Exam Vitals: Vital Signs Temp Pulse Resp BP Pulse Ox 02/16/21 06:00 98.1 F 91 19 122/73 94 L 02/15/21 23:40 92 122/69 95 02/15/21 20:00 89 139/87 64 L Intake and Output 02/15/21 02/16/21 02/16/21 22:59 06:59 14:59 Output Total 340 820 Balance -340 -820 Output: Urine 340 820 Uretheral (Hernandez) 340 820 Other: Voiding Method Indwelling Catheter Weight 80.286 kg 80.286 kg Results CBC & Chem 7: 02/15/21 18:47 02/15/21 18:47 Labs: Abnormal Lab Results - Last 24 Hours (Table) 02/15/21 02/15/21 02/15/21 Range/Units 17:33 18:47 18:47 RBC 3.66 L (4.30-5.90) m/uL Hgb 11.1 L (13.0-17.5) gm/dL Hct 35.4 L (39.0-53.0) % Neutrophils # 9.4 H (1.3-7.7) k/uL Lymphocytes # 0.6 L (1.0-4.8) k/uL Carbon Dioxide 19 L (22-30) mmol/L BUN 36 H (9-20) mg/dL Creatinine 1.26 H (0.66-1.25) mg/dL Glucose 134 H (74-99) mg/dL Urine RBC >182 H (0-5) /hpf Urine WBC 50 H (0-5) /hpf Urine Bacteria Moderate H (None) /hpf Urine Yeast (Budding) Many H (None) /hpf Microbiology - Last 24 Hours (Table) 02/15/21 17:33 Urine Culture - Preliminary Urine,Voided
[2021-02-16 15:49] LABS: Basophils # (A) 0.1 k/uL (0-0.2); Basophils % (A) 0 %; Eosinophils % (A) 0 %; HGB 10.4 gm/dL (13.0-17.5); Lymphocytes # (A) 0.6 k/uL (1.0-4.8); Lymphocytes % (A) 4 %; MCH 31.2 pg (25.0-35.0); MCHC 31.6 g/dL (31.0-37.0); MCV 98.7 fL (80.0-100.0); Mean Platelet Volume 9.7; Monocytes # (A) 0.7 k/uL (0-1.0); Monocytes % (A) 5 %; Neutrophils % (A) 91 %; Platelet Count 224 k/uL (150-450); RBC 3.34 m/uL (4.30-5.90); RDW 13.7 % (11.5-15.5); WBC 15.5 k/uL (3.8-10.6)
[2021-02-16] MEDS: PSYLLIUM HUSK 0.4 GM PO SCH ×2 (15:53→22:31)
[2021-02-16 15:59] LABS: Albumin 3.6 g/dL (3.5-5.0); Calcium 9.3 mg/dL (8.4-10.2); Potassium 4.9 mmol/L (3.5-5.1); Total Protein 6.3 g/dL (6.3-8.2)
[2021-02-16 16:35] LABS: Glucose,Whole Blood 278 mg/dL (75-99)
[2021-02-16] MEDS: metFORMIN 500 MG TAB PO SCH (17:33)
[2021-02-16] MEDS: INSULIN ASPART (NovoLOG) 100 UNIT/ML VIAL SQ SCH (17:33)
[2021-02-16] MEDS: rOPINIRole HCL 4 MG TABLET PO SCH (21:30)
[2021-02-16] MEDS: oxyCODONE-APAP 10-325MG 1 EACH TAB PO PRN (21:34)
--- NOTE | 2021-02-16 21:50 | P.PCN ---
Date of Procedure: 02/16/21 Preoperative Diagnosis: Gross hematuria Postoperative Diagnosis: gross hematuria, urethral stricture Procedure(s) Performed: Catheter insertion, urethral dilation, bladder irrigation Description of Procedure: Catheter was removed, under sterile technique I attempted to place a 22-Maori hematuria catheter, but resistance was met at the meatus. At this time meatus was dilated to 26 Fr using Roverto male sound starting with 18 Fr and serially dilating to 26 fr. Next a 22 Fr hematuria catheter was placed, bladder was irrigated with return of 100 cc of old blood clots. Urine was light pink at end of irrigation. Patient tolerated procedure well
[2021-02-17 00:30] LABS: Glucose,Whole Blood 248 mg/dL (75-99)
[2021-02-17] MEDS: HYDROmorphone 0.5 MG/0.5 ML SYRINGE IVP PRN ×2 (02:16→09:59)
[2021-02-17] MEDS: LEVOTHYROXINE 25 MCG TAB PO SCH (06:21)
[2021-02-17 07:16] LABS: Glucose,Whole Blood 156 mg/dL (75-99)
[2021-02-17 07:18] LABS: Albumin 3.4 g/dL (3.5-5.0)
[2021-02-17 07:20] LABS: Basophils % (A) 0 %; Calcium 9.2 mg/dL (8.4-10.2); Eosinophils # (A) 0.1 k/uL (0-0.7); Eosinophils % (A) 0 %; HCT 31.6 % (39.0-53.0); HGB 10.1 gm/dL (13.0-17.5); Hypochromasia Slight; Lymphocytes # (A) 0.5 k/uL (1.0-4.8); Lymphocytes % (A) 3 %; MCH 31.9 pg (25.0-35.0); MCV 99.5 fL (80.0-100.0); Macrocytosis Slight; Mean Platelet Volume 9.1; Monocytes # (A) 0.6 k/uL (0-1.0); Monocytes % (A) 4 %; Neutrophils # (A) 16.4 k/uL (1.3-7.7); Neutrophils % (A) 92 %; Platelet Count 215 k/uL (150-450); RBC 3.17 m/uL (4.30-5.90); RDW 14.3 % (11.5-15.5); Total Bilirubin 1.4 mg/dL (0.2-1.3); WBC 17.8 k/uL (3.8-10.6)
[2021-02-17] MEDS: INSULIN ASPART (NovoLOG) 100 UNIT/ML VIAL SQ SCH ×3 (09:05→17:48)
[2021-02-17] MEDS: PIOGLITAZONE 30 MG TAB PO SCH (09:06)
[2021-02-17] MEDS: PANTOPRAZOLE 40 MG TABLET PO SCH (09:06)
[2021-02-17] MEDS: rOPINIRole HCL 4 MG TABLET PO SCH ×2 (09:06→20:11)
[2021-02-17] MEDS: CHOLECALCIFEROL 25 MCG (1000 IU) TABLET PO SCH (09:06)
[2021-02-17] MEDS: ASCORBIC ACID 500 MG TAB PO SCH (09:06)
[2021-02-17] MEDS: FERROUS SULFATE 325 MG TAB PO SCH (09:06)
[2021-02-17] MEDS: NON FORMULARY DRUG (Vitamin B Complex [Vitamin B Complex] 1 EACH Capsule) PO SCH (09:07)
[2021-02-17] MEDS: PSYLLIUM HUSK 0.4 GM PO SCH ×3 (09:07→20:11)
[2021-02-17] MEDS: oxyCODONE-APAP 10-325MG 1 EACH TAB PO PRN (09:16)
--- NOTE | 2021-02-17 10:46 | P.PN ---
Subjective Progress Note Date: 02/17/21 HISTORY OF PRESENT ILLNESS This is a 80-year-old male patient of Dr. Judge with past medical history of hypertension and hypertensive cardio vascular disease with left ventricular hypertrophy, hyperlipidemia, diabetes mellitus type 2, history of prostate cancer status post prostatectomy followed by radiation therapy and Lupron injections, history of gastroesophageal reflux disease, generalized oste oarthritis with a chronic low back pain and underwent multiple back surgeries and procedures. Patient presented due to recurrent gross hematuria as well as abdominal pain. He underwent a CAT scan of the abdomen and pelvis with contrast revealed abdominal aortic aneurysm without change. There is patency of the endograft. Urinary bladder wall thickening and increased density could relate to blood clot or tumor and appears new. He has been afebrile, heart rate 91, blood pressure 122/73, pulse ox 94% on room air. Hemoglobin 11.1. BUN 36 and creatinine 1.26. Urinalysis was brown bloody, RBCs greater than 182, wbc's 50, bacteria moderate, yeast budding many. Coronavirus PCR not detected. Patient admitted to the observation unit and he has been seen by urology and ordered for up size to catheter and irrigate every 4 hours. 02/17: Patient's Hernandez catheter was up sized by Dr. Noble and bladder was irrigated with return of 100 mL of old blood clots. Hernandez is currently draining elmer urine slightly blood tinged. Patient complains of cough and congestion. Temperature max 100.5, heart rate 100, blood pressure 110/73, pulse ox 95% on room air. Repeat blood work reveals increase in leukocytosis to 17.8, hemoglobin 10.1, platelet count 215. Electrolytes are within normal limits. BUN 37 and creatinine on 0.54. Blood sugars are running 156 this morning in the 200s yesterday. Total bilirubin 1.4. Liver function tests within normal limits. Urine culture is showing gram-negative bacilli. REVIEW OF SYSTEMS Constitutional: No fever, no chills, no night sweats. No weight change. No weakness, fatigue or lethargy. No daytime sleepiness. EENT: No headache. No blurred vision or double vision, no loss of vision. No loss of Hearing, no ringing in the ears, no dizziness. No nasal drainage or congestion. No epistaxis. No sore throat. Lungs: No shortness of breath, cough, no sputum production. No wheezing. Cardiovascular: No chest pain, no lower extremity edema. No palpitations. No paroxysmal nocturnal dyspnea. No orthopnea. No lightheadedness or dizziness. No syncopal episodes. Abdominal: No abdominal pain. No nausea, vomiting. No diarrhea. No constipation. No bloody or tarry stools. No loss of appetite. Genitourinary: No dysuria, increased frequency, urgency. No urinary retention. Reports hematuria-improving. Musculoskeletal: No myalgias. No muscle weakness, no gait dysfunction, no frequent falls. No back pain. No neck pain. Integumentary: No wounds, no lesions. No rash or pruritus. No unusual bruising. No change in hair or nails. Neurologic: No aphasia. No facial droop. No change in mentation. No head injury. No headache. No paralysis. No paresthesia. Psychiatric: No depression. No anxiety. No mood swings. Endocrine: Noted abnormal blood sugars. No weight change. No excessive sweating or thirst. No cold intolerance. PHYSICAL EXAMINATION Gen: This is a 80-year-old male. He is resting in bed and appears to be comfortable and in no acute distress. HEENT: Head is atraumatic, normocephalic. Pupils equal, round. Sclerae is ani cteric. NECK: Supple. No JVD. No lymphadenopathy. No thyromegaly. LUNGS: Clear to auscultation. No wheezes or rhonchi. No intercostal retractions. HEART: Regular rate and rhythm. No murmur. ABDOMEN: Soft. Bowel sounds are present. No masses. No tenderness. Hernandez catheter with dark red liquid and clots. EXTREMITIES: No pedal edema. No calf tenderness. NEUROLOGICAL: Patient is awake, alert and oriented x3. Cranial nerves 2 through 12 are grossly intact. ASSESSMENT AND PLAN 1. Gross hematuria secondary to prostate cancer/radiation. Consult with urology appreciated. Hernandez catheter up sized by Dr. Calloway, irrigate every 4 hours, monitor hemoglobin. 2. Chronic anemia of chronic disease and possible chronic blood loss. Hemoglobin is currently stable, recheck CBC in the morning. Continue ferrous sulfate daily. 3. Hypertension and hypertensive cardiovascular disease. Patient is no longer on antihypertensive medications. 4. Hyperlipidemia. Patient is not on statin. 5. Diabetes mellitus type 2. Continue metformin 1000 mg before supper and Actos 30 mg daily, NovoLog scale as needed. 6. History of prostate cancer status post prostatectomy followed by radiation therapy and Lupron injections with chronic hematuria. 7. Gastroesophageal reflux disease. Continue omeprazole 40 mg daily. 8. Chronic low back pain. Continue Percocet 1 twice daily as needed, gabapent in 400 mg 3 times daily. 9. DVT prophylaxis. SCDs and WINDY hose. 10. COVID-19 testing negative. Patient has been hospitalized during a pandemic. 11. Acute urinary tract infection and hemorrhagic cystitis, poa. Patient started on Rocephin 1 g daily. DISCHARGE PLAN Home. Impression and plan of care have been directed as dictated by the signing physician. Krysta Castro nurse practitioner acting as scribe for signing physician. Objective - Vital Signs Vital signs: Vital Signs Temp 100.5 F H 02/17/21 07:00 Pulse 100 02/17/21 07:00 Resp 16 02/17/21 07:00 BP 110/73 02/17/21 07:00 Pulse Ox 95 02/17/21 07:00 Intake & Output 02/16/21 02/17/21 02/17/21 18:59 06:59 18:59 Intake Total 200 60 Output Total 800 Balance -600 60 Weight 80.286 kg Intake: Oral 200 60 Output: Urine 800 Uretheral (Hernandez) 400 Other: Voiding Method Indwelling Catheter Indwelling Catheter Indwelling Catheter # Voids 3 - Labs CBC & Chem 7: 02/17/21 06:24 02/17/21 06:24 Labs: Abnormal Lab Results - Last 24 Hours (Table) 02/16/21 02/16/21 02/16/21 Range/Units 15:03 15:03 16:31 WBC 15.5 H (3.8-10.6) k/uL RBC 3.34 L (4.30-5.90) m/uL Hgb 10.4 L (13.0-17.5) gm/dL Hct 33.0 L (39.0-53.0) % Neutrophils # 14.0 H (1.3-7.7) k/uL Lymphocytes # 0.6 L (1.0-4.8) k/uL BUN 38 H (9-20) mg/dL Creatinine 1.67 H (0.66-1.25) mg/dL Glucose 135 H (74-99) mg/dL POC Glucose (mg/dL) 278 H (75-99) mg/dL Total Bilirubin (0.2-1.3) mg/dL Total Protein (6.3-8.2) g/dL Albumin (3.5-5.0) g/dL 02/17/21 02/17/21 02/17/21 Range/Units 00:28 06:24 06:24 WBC 17.8 H (3.8-10.6) k/uL RBC 3.17 L (4.30-5.90) m/uL Hgb 10.1 L (13.0-17.5) gm/dL Hct 31.6 L (39.0-53.0) % Neutrophils # 16.4 H (1.3-7.7) k/uL Lymphocytes # 0.5 L (1.0-4.8) k/uL BUN 37 H (9-20) mg/dL Creatinine 1.54 H (0.66-1.25) mg/dL Glucose 147 H (74-99) mg/dL POC Glucose (mg/dL) 248 H (75-99) mg/dL Total Bilirubin 1.4 H (0.2-1.3) mg/dL Total Protein 6.0 L (6.3-8.2) g/dL Albumin 3.4 L (3.5-5.0) g/dL 02/17/21 Range/Units 07:15 WBC (3.8-10.6) k/uL RBC (4.30-5.90) m/uL Hgb (13.0-17.5) gm/dL Hct (39.0-53.0) % Neutrophils # (1.3-7.7) k/uL Lymphocytes # (1.0-4.8) k/uL BUN (9-20) mg/dL Creatinine (0.66-1.25) mg/dL Glucose (74-99) mg/dL POC Glucose (mg/dL) 156 H (75-99) mg/dL Total Bilirubin (0.2-1.3) mg/dL Total Protein (6.3-8.2) g/dL Albumin (3.5-5.0) g/dL Microbiology - Last 24 Hours (Table) 02/15/21 17:33 Urine Culture - Preliminary Urine,Voided Gram Neg Bacilli
[2021-02-17 11:10] LABS: Glucose,Whole Blood 201 mg/dL (75-99)
[2021-02-17 17:11] LABS: Glucose,Whole Blood 151 mg/dL (75-99)
[2021-02-17] MEDS: metFORMIN 500 MG TAB PO SCH (17:48)
[2021-02-17 20:34] LABS: Glucose,Whole Blood 269 mg/dL (75-99)
[2021-02-18] MEDS: LEVOTHYROXINE 25 MCG TAB PO SCH (06:10)
[2021-02-18 07:29] LABS: Glucose,Whole Blood 160 mg/dL (75-99)
[2021-02-18] MEDS: INSULIN ASPART (NovoLOG) 100 UNIT/ML VIAL SQ SCH ×2 (07:45→12:38)
[2021-02-18] MEDS: rOPINIRole HCL 4 MG TABLET PO SCH (07:46)
[2021-02-18] MEDS: CHOLECALCIFEROL 25 MCG (1000 IU) TABLET PO SCH (07:46)
[2021-02-18] MEDS: FERROUS SULFATE 325 MG TAB PO SCH (07:46)
[2021-02-18] MEDS: PSYLLIUM HUSK 0.4 GM PO SCH ×2 (07:46→09:49)
[2021-02-18] MEDS: ASCORBIC ACID 500 MG TAB PO SCH (07:46)
[2021-02-18] MEDS: PIOGLITAZONE 30 MG TAB PO SCH (07:46)
[2021-02-18] MEDS: PANTOPRAZOLE 40 MG TABLET PO SCH (07:46)
[2021-02-18] MEDS: NON FORMULARY DRUG (Vitamin B Complex [Vitamin B Complex] 1 EACH Capsule) PO SCH (07:47)
[2021-02-18 10:23] VITALS: BP 153/71; PULSE 106; RESP 19; TEMP 99.8
[2021-02-18 11:11] LABS: HCT 27.3 % (39.0-53.0); HGB 8.9 gm/dL (13.0-17.5); MCH 32.1 pg (25.0-35.0); MCHC 32.7 g/dL (31.0-37.0); MCV 98.1 fL (80.0-100.0); Mean Platelet Volume 9.7; Platelet Count 165 k/uL (150-450); RBC 2.78 m/uL (4.30-5.90); RDW 13.6 % (11.5-15.5); WBC 10.7 k/uL (3.8-10.6)
[2021-02-18 11:22] LABS: Calcium 8.8 mg/dL (8.4-10.2); Potassium 4.3 mmol/L (3.5-5.1)
--- NOTE | 2021-02-18 11:24 | P.DS ---
Providers Date of admission: 02/17/21 09:52 Expected date of discharge: 02/18/21 Attending physician: Ronald Hudson Consults: 02/15/21 22:09 Consult Physician Urgent Consulting Provider: Srinivasan Noble Consult Reason/Comments: gross hematuria, possible mass on CT Do you want consulting provider notified?: Already Contacted Primary care physician: [facility] Course: HISTORY OF PRESENT ILLNESS This is a 80-year-old male patient of Dr. Judge with past medical history of hypertension and hypertensive cardio vascular disease with left ventricular hypertrophy, hyperlipidemia, diabetes mellitus type 2, history of prostate cancer status post prostatectomy followed by radiation therapy and Lupron injections, history of gastroesophageal reflux disease, generalized osteoarthritis with a chronic low back pain and underwent multiple back surgeries and procedures. Patient presented due to recurrent gross hematuria as well as abdominal pain. He underwent a CAT scan of the abdomen and pelvis with contrast revealed abdominal aortic aneurysm without change. There is patency of the endograft. Urinary bladder wall thickening and increased density could relate to blood clot or tumor and appears new. He has been afebrile, heart rate 91, blood pressure 122/73, pulse ox 94% on room air. Hemoglobin 11.1. BUN 36 and creatinine 1.26. Urinalysis was brown bloody, RBCs greater than 182, wbc's 50, bacteria moderate, yeast budding many. Coronavirus PCR not detected. Patient admitted to the observation unit and he has been seen by urology and ordered for up size to catheter and irrigate every 4 hours. 02/17: Patient's Hernandez catheter was up sized by Dr. Noble and bladder was irrigated with return of 100 mL of old blood clots. Hernandez is currently draining elmer urine slightly blood tinged. Patient complains of cough and congestion. Temperature max 100.5, heart rate 100, blood pressure 110/73, pulse ox 95% on room air. Repeat blood work reveals increase in leukocytosis to 17.8, hemoglobin 10.1, platelet count 215. Electrolytes are within normal limits. BUN 37 and creatinine on 0.54. Blood sugars are running 156 this morning in the 200s yesterday. Total bilirubin 1.4. Liver function tests within normal limits. Urine culture is showing gram-negative bacilli. 02/18: Patient has been afebrile greater than 24 hours, heart rate 106, blood pressure 153/71, pulse ox 92% on room air. Urine culture reveals klebsiella pneumoniae resistant to ampicillin and intermediate to Macrodantin. Repeat blood work reveals WBC 10.7, hemoglobin 8.9. BUN 35 creatinine 1.56. Blood sugars running between 160 and 205. Hernandez catheter is draining clear elmer urine. No blood or blood clots. Patient is complaining of feeling tired. No other concerns. Patient will be discharged home today in stable condition. DISCHARGE DIAGNOSES Gross hematuria secondary to prostate cancer/radiation. Acute urinary tract infection and hemorrhagic cystitis, poa. Chronic anemia of chronic disease and possible chronic blood loss. Hypertension and hypertensive cardiovascular disease. Hyperlipidemia. Diabetes mellitus type 2. History of prostate cancer status post prostatectomy followed by radiation therapy and Lupron injections with chronic hematuria. Gastroesophageal reflux disease. Chronic low back pain. COVID-19 testing negative. Patient has been hospitalized during a pandemic. DISCHARGE PLAN Home with [facility]. Greater than 35 minutes was utilized and coordinating patient's discharge. Impression and plan of care have been directed as dictated by the signing physician. Krysta Castro nurse practitioner acting as scribe for signing physician. Patient Condition at Discharge: Stable Plan - Discharge Summary New Discharge Prescriptions: New Cefuroxime [Ceftin] 250 mg PO BID 10 Days #20 tab Continue metFORMIN HCL [Glucophage] 1,000 mg PO AC-SUPPER Vitamin B Complex 1 cap PO DAILY Cholecalciferol [Vitamin D3 (25 Mcg = 1000 Iu)] 1,000 unit PO DAILY Ubidecarenone [Co Q-10] 100 mg PO DAILY Psyllium Husk [Metamucil] 0.4 gm PO TID Ascorbic Acid [Vitamin C] 1,000 mg PO DAILY Aspirin 325 mg PO DAILY Levothyroxine Sodium [Synthroid] 25 mcg PO DAILY oxyCODONE-APAP 10-325MG [Percocet 10-325 mg] 1 tab PO BID PRN PRN Reason: Pain rOPINIRole HCL [Requip] 4 mg PO BID Gabapentin [Neurontin] 400 mg PO TID PRN PRN Reason: Pain Pioglitazone [Actos] 30 mg PO DAILY Ferrous Sulfate 134mg 134 mg PO DAILY Omeprazole Magnesium [PriLOSEC] 40 mg PO DAILY Discharge Medication List metFORMIN HCL [Glucophage] 1,000 mg PO AC-SUPPER 10/06/13 [History] Vitamin B Complex 1 cap PO DAILY 05/02/14 [History] Cholecalciferol [Vitamin D3 (25 Mcg = 1000 Iu)] 1,000 unit PO DAILY 10/13/15 [History] Ubidecarenone [Co Q-10] 100 mg PO DAILY 10/13/15 [History] Psyllium Husk [Metamucil] 0.4 gm PO TID 03/22/17 [History] Ascorbic Acid [Vitamin C] 1,000 mg PO DAILY 09/05/18 [History] Aspirin 325 mg PO DAILY 09/05/18 [History] Levothyroxine Sodium [Synthroid] 25 mcg PO DAILY 11/09/18 [History] oxyCODONE-APAP 10-325MG [Percocet 10-325 mg] 1 tab PO BID PRN 03/05/19 [History] Gabapentin [Neurontin] 400 mg PO TID PRN 03/21/19 [History] rOPINIRole HCL [Requip] 4 mg PO BID 03/21/19 [History] Ferrous Sulfate 134mg 134 mg PO DAILY 02/15/21 [History] Pioglitazone [Actos] 30 mg PO DAILY 02/15/21 [History] Omeprazole Magnesium [PriLOSEC] 40 mg PO DAILY 02/16/21 [History] Cefuroxime [Ceftin] 250 mg PO BID 10 Days #20 tab 02/18/21 [Rx] Follow up Appointment(s)/Referral(s): [facility], [NON-STAFF] - 1-2 Days Yonatan Judge DO [Primary Care Provider] - 1 Week (Unable to schedule appointment, pt to call office to self schedule.) Leoncio Lorenzana MD [Family Provider] - 02/25/21 2:00 pm Ambulatory/Diagnostic Orders: Basic Metabolic Panel [LAB.AMB] Location: None Selected Complete Blood Count w/diff [LAB.AMB] Location: None Selected Patient Instructions/Handouts: Cefuroxime (By mouth), Hernandez Catheter Placement and Care (DC), Complete Blood Count (GEN), Basic Metabolic Panel (GEN), Hematuria (ED), Urinary Leg Bag (GEN) Discharge Disposition: HOME WITH HOME HEALTH SERVICES
[2021-02-18 11:25] LABS: Glucose,Whole Blood 205 mg/dL (75-99)
== END 2021-02-18 13:37 | disposition home health service (06) | DRG 690 ==
LOC: EC 16:46 → 1SOBS 22:08 → 3NCARDOBS 02-16 08:55 → OBSVTOIN 02-17 09:52
PROVIDERS: ADMIT Internal Medicine Geriatric Medicine; ATTEND Internal Medicine Geriatric Medicine
PROC: 0T7D7ZZ Dilation of Urethra, Via Natural or Artificial Opening (ICD-10-PCS; principal; 2021-02-17)
PROC: 0T9B80Z Drainage of Bladder with Drainage Device, Via Natural or Artificial Opening Endoscopic (ICD-10-PCS; 2021-02-17)
PROC: 3E1K88Z Irrigation of Genitourinary Tract using Irrigating Substance, Via Natural or Artificial Opening Endoscopic (ICD-10-PCS; 2021-02-17)
DX: N30.91 Cystitis, unspecified with hematuria (principal); N02.9 Recurrent and persistent hematuria with unspecified morphologic changes; Z16.11 Resistance to penicillins; C61 Malignant neoplasm of prostate; N32.89 Other specified disorders of bladder; Z20.822 Contact with and (suspected) exposure to COVID-19; N35.919 Unspecified urethral stricture, male, unspecified site; I71.4 Abdominal aortic aneurysm, without rupture; B96.1 Klebsiella pneumoniae [K. pneumoniae] as the cause of diseases classified elsewhere; I10 Essential (primary) hypertension; K21.9 Gastro-esophageal reflux disease without esophagitis; G89.29 Other chronic pain; M54.50 Low back pain, unspecified; I65.29 Occlusion and stenosis of unspecified carotid artery; E11.9 Type 2 diabetes mellitus without complications; D63.8 Anemia in other chronic diseases classified elsewhere; Z79.82 Long term (current) use of aspirin; D50.0 Iron deficiency anemia secondary to blood loss (chronic); Z87.891 Personal history of nicotine dependence; Z87.19 Personal history of other diseases of the digestive system; Z90.49 Acquired absence of other specified parts of digestive tract; Z86.73 Personal history of transient ischemic attack (TIA), and cerebral infarction without residual deficits; E78.5 Hyperlipidemia, unspecified; M15.9 Polyosteoarthritis, unspecified; Z79.84 Long term (current) use of oral hypoglycemic drugs; Z79.890 Hormone replacement therapy; Z79.899 Other long term (current) drug therapy; Z80.6 Family history of leukemia; Z80.8 Family history of malignant neoplasm of other organs or systems; Z82.3 Family history of stroke; Z85.46 Personal history of malignant neoplasm of prostate; Z87.11 Personal history of peptic ulcer disease; Z90.79 Acquired absence of other genital organ(s); Z92.3 Personal history of irradiation
CPT/HCPCS: 36415; 74177; 80048; 80053; 81001; 85025; 85027; 85610; 85730; 87077; 87086; 87186; 87635; 96374; 96375; 96376; 99285

== ENCOUNTER 2021-03-02 01:33 | Emergency (ER) | payer MEDICARE, BC ==
[2021-03-02 01:40] VITALS: BP 202/84; PULSE 88; RESP 26; TEMP 97.5
--- NOTE | 2021-03-02 02:47 | ED ---
General Adult HPI - General Chief complaint: Urogenital Stated complaint: Catheter Issues Time Seen by Provider: 03/02/21 01:42 Source: patient Mode of arrival: ambulatory - History of Present Illness Initial comments: 89-year-old male patient with history of hematuria and prostatectomy, presents to the emergency department today for evaluation of obstructed urinary catheter. Patient states his have the catheter for the last couple of weeks due to urinary retention. States he has been having bloody urine output with passage of blood clots. He has been following with Dr. Lorenzana urology, he is considering doing some sort of surgical procedure if his symptoms do not improve. Patient states the catheter has been obstructed on and off throughout the day. States that finally it became completely obstructed and he started to feel pain in his lower abdomen. Patient denies any dizziness or weakness. He does take baby aspirin. Denies any other anticoagulants. He has had to have blood transfusion in the past related to this. - Related Data Home Medications Medication Instructions Recorded Confirmed metFORMIN HCL [Glucophage] 1,000 mg PO AC-SUPPER 10/06/13 02/15/21 Vitamin B Complex 1 cap PO DAILY 05/02/14 02/15/21 Cholecalciferol [Vitamin D3 (25 1,000 unit PO DAILY 10/13/15 02/15/21 Mcg = 1000 Iu)] Ubidecarenone [Co Q-10] 100 mg PO DAILY 10/13/15 02/15/21 Psyllium Husk [Metamucil] 0.4 gm PO TID 03/22/17 02/15/21 Ascorbic Acid [Vitamin C] 1,000 mg PO DAILY 09/05/18 02/15/21 Aspirin 325 mg PO DAILY 09/05/18 02/15/21 Levothyroxine Sodium [Synthroid] 25 mcg PO DAILY 11/09/18 02/15/21 oxyCODONE-APAP 10-325MG [Percocet 1 tab PO BID PRN 03/05/19 02/15/21 10-325 mg] Gabapentin [Neurontin] 400 mg PO TID PRN 03/21/19 02/15/21 rOPINIRole HCL [Requip] 4 mg PO BID 03/21/19 02/15/21 Ferrous Sulfate 134mg 134 mg PO DAILY 02/15/21 02/15/21 Pioglitazone [Actos] 30 mg PO DAILY 02/15/21 02/15/21 Omeprazole Magnesium [PriLOSEC] 40 mg PO DAILY 02/16/21 02/16/21 Previous Rx's Medication Instructions Recorded Cefuroxime [Ceftin] 250 mg PO BID 10 Days #20 tab 02/18/21 Allergies Allergy/AdvReac Type Severity Reaction Status Date / Time No Known Allergies Allergy Verified 03/02/21 01:39 Review of Systems ROS Statement: Those systems with pertinent positive or pertinent negative responses have been documented in the HPI. ROS Other: All systems not noted in ROS Statement are negative. 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,Hx prostate cancer-42 days radiation;Chronic back pain; Chronic anemia, peptic ulcer disease, CVA in June 2015 and MRI of the brain showed increased signal within the cortex of the right frontal and frontoparietal lobes consistent with infarcts., aortic aneurysm with previous insertion of an aortic stent, carotid artery stenosis, increased lower back pain History of Any Multi-Drug Resistant Organisms: MRSA Date of last positivie culture/infection: 2011 MDRO Source:: abdominal incision Past Surgical History: Back Surgery, Bladder Surgery, Cholecystectomy, Hernia Repair, Prostate Surgery Additional Past Surgical History / Comment(s): Pain clinic procedure, Prostatectomy, bladder suspension surgery, and vascular stenting of an aortic aneurysm, hemorrhoidectomy, bilateral cataract surgery, back surgery X4 (5-4-16 LAMINECTOMY),rt carotid,hernia x2 Past Anesthesia/Blood Transfusion Reactions: No Reported Reaction Past Psychological History: No Psychological Hx Reported Smoking Status: Former smoker Past Alcohol Use History: None Reported Past Drug Use History: None Reported - Past Family History Brother(s) Family Medical History: CVA/TIA Son(s) Family Medical History: No Reported History Father Family Medical History: Cancer Additional Family Medical History / Comment(s): BRAIN Mother Family Medical History: Cancer Additional Family Medical History / Comment(s): "BLOOD CANCER" General Exam General appearance: alert, in no apparent distress, other (This is a well- developed, well-nourished adult male in mild distress related to pain.) Respiratory exam: Present: normal lung sounds bilaterally. Absent: respiratory distress, wheezes, rales, rhonchi, stridor Cardiovascular Exam: Present: regular rate, normal rhythm, normal heart sounds. Absent: systolic murmur, diastolic murmur, rubs, gallop, clicks GI/Abdominal exam: Present: soft, tenderness (Suprapubic), normal bowel sounds. Absent: distended, guarding, rebound, rigid Neurological exam: Present: alert, oriented X3, CN II-XII intact Psychiatric exam: Present: normal affect, normal mood Skin exam: Present: warm, dry, intact, normal color. Absent: rash Course Vital Signs 03/02/21 01:35 Temperature 97.5 F L Pulse Rate 88 Respiratory 26 H Rate Blood Pressure 202/84 O2 Sat by Pulse 99 Oximetry Medical Decision Making - Medical Decision Making 80-year-old male patient presents to the emergency department today for evaluation of obstructed Hernandez catheter. Physical examination did reveal suprapubic abdominal tenderness. Inserted 18-[place] catheter without difficulty. Did have a very small amount of urine returned. Performed irrigation removed many blood clots. There is output of brown urine. Did have some clearing of the urine and increased flow. Patient reports improvement of symptoms. Follow-up bladder scan revealed 0 mL. CBC and CMP were performed and showed evidence for hemoglobin 8.0. Patient will be discharged home to follow- up with his primary care physician and urologist as soon as possible. He is given lab slip to have repeat CBC performed in 2 days. Return parameters were discussed in detail. He verbalizes understanding and agrees with this plan. My attending is Dr. Linda. - Lab Data Result diagrams: 03/02/21 02:40 Lab Results 03/02/21 03/02/21 Range/Units 02:40 02:40 WBC 13.7 H (3.8-10.6) k/uL RBC 2.58 L (4.30-5.90) m/uL Hgb 8.0 L (13.0-17.5) gm/dL Hct 26.1 L (39.0-53.0) % MCV 101.3 H (80.0-100.0) fL MCH 31.2 (25.0-35.0) pg MCHC 30.8 L (31.0-37.0) g/dL RDW 16.1 H (11.5-15.5) % Plt Count 354 D (150-450) k/uL MPV 9.1 Neutrophils % 92 % Lymphocytes % 3 % Monocytes % 4 % Eosinophils % 0 % Basophils % 0 % Neutrophils # 12.6 H (1.3-7.7) k/uL Lymphocytes # 0.5 L (1.0-4.8) k/uL Monocytes # 0.5 (0-1.0) k/uL Eosinophils # 0.0 (0-0.7) k/uL Basophils # 0.0 (0-0.2) k/uL Hypochromasia Moderate Anisocytosis Slight Macrocytosis Slight PT 11.0 (9.0-12.0) sec INR 1.0 (<1.2) APTT 22.4 (22.0-30.0) sec Disposition Clinical Impression: Hematuria, Obstructed Hernandez catheter Disposition: HOME SELF-CARE Condition: Good Instructions (If sedation given, give patient instructions): Hernandez Catheter Placement and Care (ED), Hematuria (ED) Additional Instructions: Follow-up with Dr. Lorenzana as soon as possible. Follow up through primary care physician for recheck in 1-2 days. Have repeat CBC drawn to check her blood counts. Return for any new, worsening, or concerning symptoms. Is patient prescribed a controlled substance at d/c from ED?: No Referrals: Yonatan Judge DO [Primary Care Provider] - 1-2 days Leoncio Lorenzana MD [STAFF PHYSICIAN] - 1-2 days Time of Disposition: 03:36
[2021-03-02 03:07] LABS: Anisocytosis Slight; Basophils % (A) 0 %; Eosinophils % (A) 0 %; HCT 26.1 % (39.0-53.0); Hypochromasia Moderate; Lymphocytes # (A) 0.5 k/uL (1.0-4.8); Lymphocytes % (A) 3 %; MCH 31.2 pg (25.0-35.0); MCHC 30.8 g/dL (31.0-37.0); MCV 101.3 fL (80.0-100.0); Macrocytosis Slight; Mean Platelet Volume 9.1; Monocytes # (A) 0.5 k/uL (0-1.0); Monocytes % (A) 4 %; Neutrophils # (A) 12.6 k/uL (1.3-7.7); Neutrophils % (A) 92 %; RBC 2.58 m/uL (4.30-5.90); RDW 16.1 % (11.5-15.5); WBC 13.7 k/uL (3.8-10.6)
[2021-03-02 03:11] LABS: Platelet Count 354 k/uL (150-450)
[2021-03-02 03:23] LABS: Partial Thromboplastin Time 22.4 sec (22.0-30.0)
== END 2021-03-02 04:15 | disposition home or self-care (01) ==
LOC: EC 01:33
DX: T83.091A Other mechanical complication of indwelling urethral catheter, initial encounter (principal); R31.9 Hematuria, unspecified; E11.9 Type 2 diabetes mellitus without complications; K21.9 Gastro-esophageal reflux disease without esophagitis; I10 Essential (primary) hypertension; E78.5 Hyperlipidemia, unspecified; M19.90 Unspecified osteoarthritis, unspecified site; Z86.73 Personal history of transient ischemic attack (TIA), and cerebral infarction without residual deficits; Z87.891 Personal history of nicotine dependence; Z79.84 Long term (current) use of oral hypoglycemic drugs; Z79.82 Long term (current) use of aspirin; Z79.899 Other long term (current) drug therapy
CPT/HCPCS: 36415; 51702; 85025; 85610; 85730; 99283

== ENCOUNTER → 2021-06-25 | Outpatient (CLI) | payer MEDICARE, BC ==
--- NOTE | 2021-06-25 21:40 | CT ---
EXAMINATION TYPE: CT sacrum wo con, CT lumbar spine wo con DATE OF EXAM: 06/25/2021 COMPARISON: CT dated 02/15/2021 HISTORY: pain CT DLP: 394.55 (accession [id number]), 984.44 (accession [id number]) mGycm Automated exposure control for dose reduction was used. TECHNIQUE: CT scan of the lower spine and sacrum without IV contrast administration. FINDINGS: Previous posterior spinal canal decompression from L1 down to S1 with fixation of L1-2 as well as L5- S1 using rods and metallic screws. No evidence of prosthesis break or displacement. Diffuse osteopeni a. Progressive sclerotic areas within the visualized bones, concerning for progressive metastatic dis ease, please correlate with bone scan results. Mild dextro scoliosis of the thoracolumbar junction. Chronic fracture of the inferior aspect of T12 v ertebral body with retropulsion into the spinal canal causing mild spinal canal stenosis, stable. No definite acute fracture line identified. Severe degenerative changes at L5-S1 level. Severe bilateral L5-S1, T11-12 and L1-2 neuroforaminal stenosis. Suspected osseous metastasis is seen along the right pedicle of L3 causing adjacent right neuroforami nal stenosis. Endovascular treatment for a large abdominal aortic aneurysm. Bilateral renal cysts, david boptimally assessed. Hyperdense right upper pole renal lesion measuring 3 cm, suspicious for renal ce ll carcinoma, for urology consultation. 8mm right posterior basal pulmonary nodule, for further elective CT chest assessment. Stable angulati on at the sacrococcygeal junction. No definite acute sacral fracture identified. Fecal loading of the visualized portion of the rectum and sigmoid colon. Mild degenerative changes of the hip joints. IMPRESSION: 1. Progressive sclerotic lesions in the visualized bones concerning for progressive metastatic diseas e, please correlate with bone scan results. 2. Postsurgical changes and chronic lumbar spine findings as detailed above. 3. Right upper pole renal lesion suspicious for renal cell carcinoma measuring 3 cm, for urology cons ultation. Other incidental findings as described above.
== END | disposition home or self-care (01) ==
LOC: RADCTMAIN 12:00
PROVIDERS: ATTEND Family Medicine
DX: M53.3 Sacrococcygeal disorders, not elsewhere classified (principal); M54.50 Low back pain, unspecified; G89.29 Other chronic pain
CPT/HCPCS: 72131; 72192

== ENCOUNTER → 2021-07-16 | Outpatient (CLI) | payer MEDICARE, BC ==
--- NOTE | 2021-07-16 22:34 | CT ---
EXAMINATION TYPE: CT chest wo/w con DATE OF EXAM: 07/16/2021 COMPARISON: Prior CTs May 25, [address] lumbar spine June 25, 2021 HISTORY: PULMONARY NODULE CT DLP: 781.0 mGycm. Automated Exposure Control for Dose Reduction was Utilized. TECHNIQUE: CT scan of the thorax is performed following without and with IV Contrast, patient inject ed with 70ml mL of Isovue 300. FINDINGS: LUNGS: Persistent 8 x 7 mm posterior right basilar nodule axial image 45, this in retrospect is uncha nged from 2015 CT. Mild lateral left basilar linear scarring redemonstrated. There is redemonstration of an azygos lobe/fissure which is normal variant. No new greater than 5 mm pulmonary nodules or mas ses. Mild underlying emphysematous changes present. No suspicious focal consolidation. No pleural eff usion or pneumothorax seen bilaterally. MEDIASTINUM: There are no greater than 1 cm hilar or mediastinal lymph nodes. No pericardial effusi on is seen. Mild cardiomegaly. Lipomatous hypertrophy of the intra-arterial septum. Severe three-ves maxi coronary artery calcification. There is bovine type aortic arch which is normal variant redemonst rated. Moderate to severe peripheral plaque in the thoracic aorta with partial visualization of the s tent graft in the abdominal aorta through AAA partially imaged. OTHER: Prior ventral wall hernia repair in the upper to mid abdomen partially imaged. Postsurgical ch naina to the thoracolumbar spine is partially imaged. Spine is straightened with multilevel spurring a nd S-shaped scoliosis. Scattered sclerotic foci throughout the lumbar spine with largest lesion right L3 level and left T8 level: 67 with additional 6 sclerotic bilateral rib lesions and sclerotic lesio ns in right humeral head and bilateral clavicles. There is 3.0 cm exophytic hyperdense lesion upper p ole right kidney could reflect proteinaceous cyst or solid mass, simple-appearing thin-walled cysts b ilaterally both kidneys are also redemonstrated. IMPRESSION: Stable 8 mm right basilar nodule from 2015 CT. No suspicious new or enlarging greater donald n 5 mm pulmonary nodules. Diffuse osseous metastatic disease is present which correlates with most re cent CT studies.
== END | disposition home or self-care (01) ==
LOC: RADCTMAIN 15:35
PROVIDERS: ATTEND Family Medicine
DX: R91.1 Solitary pulmonary nodule (principal)
CPT/HCPCS: 82565; 84520; 71270; 36415; Q9967

== ENCOUNTER → 2021-08-19 | Outpatient (CLI) | payer MEDICARE, BC ==
--- NOTE | 2021-08-19 14:26 | NM ---
EXAMINATION TYPE: NM bone scan whole body DATE OF EXAM: 08/19/2021 COMPARISON: Bone scan dated 08/07/2014, CT 02/15/2021, CT 07/16/2021 HISTORY: Abnormal CT, abnormal bone scan, M 89.9 Delayed whole-body scanning was performed following the injection of 23.7 mCi Tc 99m MDP. Images acq uired 3 hours post injection. FINDINGS: Multiple foci of uptake are noted within the bilateral ribs, spine, proximal upper extremities, proxi mal right lower extremity, sternum, right ilium, left acetabulum which are new compared to prior bone scan. . IMPRESSION: Findings consistent with metastatic disease
== END | disposition home or self-care (01) ==
LOC: RADNMMAIN 09:48
PROVIDERS: ATTEND Family Medicine
DX: M89.9 Disorder of bone, unspecified (principal); R91.1 Solitary pulmonary nodule
CPT/HCPCS: 78306; A9503

== ENCOUNTER 2022-07-11 19:12 | Inpatient (IN) | payer MEDICARE, BC ==
--- NOTE | 2022-07-11 19:26 | ED ---
General Adult HPI - General Chief complaint: Abdominal Pain Stated complaint: abd pain Time Seen by Provider: 07/11/22 19:20 Source: patient, family Mode of arrival: wheelchair Limitations: no limitations - History of Present Illness Initial comments: Patient presents to the ED with his [id number] for evaluation. Patient states that he has had right lower quadrant abdominal pain for the past hour or so. Patient states that his pain began suddenly while at rest. Patient denies trauma or injury, fever or chills, headache, chest pain, dyspnea, dizziness, upper abdominal pain, back or flank pain, testicular pain, nausea or vomiting, diarrhea, bloody or melanotic stool, dysuria/hematuria/urinary frequency/urinary symptoms, or any other symptoms or complaints. Patient states that his last bowel movement was about 3 days ago, which is not abnormal for him. Patient's [id number] states that the patient is a cancer patient, but he is not und ergoing chemotherapy currently as far she knows. Patient has a prior AAA repair. - Related Data Home Medications Medication Instructions Recorded Confirmed metFORMIN HCL [Glucophage] 1,000 mg PO AC-SUPPER 10/06/13 06/23/22 Vitamin B Complex 1 cap PO DAILY 05/02/14 06/23/22 Cholecalciferol [Vitamin D3 (25 1,000 unit PO DAILY 10/13/15 06/23/22 Mcg = 1000 Iu)] Ubidecarenone [Co Q-10] 100 mg PO DAILY 10/13/15 06/23/22 Psyllium Husk [Metamucil] 0.4 gm PO TID 03/22/17 06/23/22 Ascorbic Acid [Vitamin C] 1,000 mg PO DAILY 09/05/18 06/23/22 Aspirin 325 mg PO DAILY 09/05/18 06/23/22 Levothyroxine Sodium [Synthroid] 25 mcg PO DAILY 11/09/18 06/23/22 oxyCODONE-APAP 10-325MG [Percocet 1 tab PO BID PRN 03/05/19 06/23/22 10-325 mg] Gabapentin [Neurontin] 400 mg PO TID PRN 03/21/19 06/23/22 rOPINIRole HCL [Requip] 4 mg PO BID 03/21/19 06/23/22 Ferrous Sulfate 134mg 134 mg PO DAILY 02/15/21 06/23/22 Pioglitazone [Actos] 30 mg PO DAILY 02/15/21 06/23/22 Omeprazole Magnesium [PriLOSEC] 40 mg PO DAILY 02/16/21 06/23/22 Atorvastatin [Lipitor] 20 mg PO HS 06/23/22 06/23/22 Previous Rx's Medication Instructions Recorded Cefuroxime [Ceftin] 250 mg PO BID 10 Days #20 tab 02/18/21 Allergies Allergy/AdvReac Type Severity Reaction Status Date / Time No Known Allergies Allergy Verified 07/11/22 19:19 Review of Systems ROS Statement: Those systems with pertinent positive or pertinent negative responses have been documented in the HPI. ROS Other: All systems not noted in ROS Statement are negative. 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,Hx prostate cancer-42 days radiation;Chronic back pain; Chronic anemia, peptic ulcer disease, CVA in June 2015 and MRI of the brain showed increased signal within the cortex of the right frontal and frontoparietal lobes consistent with infarcts., aortic aneurysm with previous insertion of an aortic stent, carotid artery stenosis, increased lower back pain History of Any Multi-Drug Resistant Organisms: MRSA Date of last positivie culture/infection: 2011 MDRO Source:: abdominal incision Past Surgical History: Back Surgery, Bladder Surgery, Cholecystectomy, Hernia Repair, Prostate Surgery Additional Past Surgical History / Comment(s): Pain clinic procedure, Prostatectomy, bladder suspension surgery, and vascular stenting of an aortic aneurysm, hemorrhoidectomy, bilateral cataract surgery, back surgery X4 (5-4-16 LAMINECTOMY),rt carotid,hernia x2 Past Anesthesia/Blood Transfusion Reactions: No Reported Reaction Past Psychological History: No Psychological Hx Reported Smoking Status: Former smoker - Past Family History Brother(s) Family Medical History: CVA/TIA Son(s) Family Medical History: No Reported History Father Family Medical History: Cancer Additional Family Medical History / Comment(s): BRAIN Mother Family Medical History: Cancer Additional Family Medical History / Comment(s): "BLOOD CANCER" General Exam Limitations: no limitations General appearance: alert, in no apparent distress Head exam: Present: normocephalic Eye exam: Present: normal appearance ENT exam: Present: mucous membranes moist Neck exam: Present: other (Trachea is in midline) Respiratory exam: Present: normal lung sounds bilaterally. Absent: respiratory distress, wheezes, rales, rhonchi, stridor Cardiovascular Exam: Present: regular rate, normal rhythm, normal heart sounds, other (Normal radial pulses bilaterally) GI/Abdominal exam: Present: soft, hypoactive bowel sounds, other (Moderate right lower quadrant/right periumbilical abdominal tenderness; midline surgical scar ). Absent: distended, guarding, rebound Extremities exam: Absent: pedal edema Back exam: Absent: CVA tenderness (R), CVA tenderness (L) Neurological exam: Present: alert, oriented X3 Psychiatric exam: Present: normal affect, normal mood Skin exam: Present: warm, dry, intact, normal color Course Vital Signs 07/11/22 07/11/22 07/11/22 19:14 19:29 20:40 Temperature 98.1 F Pulse Rate 67 65 61 Respiratory 20 18 18 Rate Blood Pressure 159/60 O2 Sat by Pulse 99 Oximetry 07/11/22 21:46 Temperature Pulse Rate 64 Respiratory 18 Rate Blood Pressure O2 Sat by Pulse Oximetry - Reevaluation(s) Reevaluation #1: 07/11/22 21:35 Case, H&P, test results and ED management thus far were discussed with Dr. Quiros (general surgery). He questions keeping the patient NPO and holding the patient's Eliquis. He recommends admitting the patient to the medical service, and he states that he will see the patient in consultation. He asks to order AM labs. He has no further recommendations at this time. 07/11/22 21:48 Case, H&P, test results, ED management thus far and my discussion with Dr. Quiros as above were discussed with Dr. Rinaldi. He accepts hospital admission. He has no further recommendations at this time. 07/11/22 21:51 Patient and [id number] are aware the patient's test results and my discussions as above. They both agree with hospital admission at this time. Patient continues to have a soft abdominal exam, and he remains hemodynamically stable. Medical Decision Making - Medical Decision Making Was pt. sent in by a medical professional or institution (, PA, GENERATOR MAN, urgent care, hospital, or [place] [facility] facility...) When possible be specific @ -No Did you speak to anyone other than the patient for history (EMS, parent, family, police, friend...)? What history was obtained from this source @ -History is also obtained from the patient's [id number]. Did you review nursing and triage notes (agree or disagree)? Why? @ -I reviewed and agree with nursing and triage notes Were old charts reviewed (outside hosp., previous admission, EMS record, old EKG, old radiological studies, urgent care reports/EKG's, [place] health [facility] facility records)? Report findings @ -No old charts were reviewed Differential Diagnosis (chest pain, altered mental status, abdominal pain women, abdominal pain men, vaginal bleeding, weakness, fever, dyspnea, syncope, headache, dizziness, GI bleed, back pain, seizure, CVA, palpatations, mental health, musculoskeletal)? @ -Differential Abdominal Pain Men: Appendicitis, diverticulitis, diverticulosis, ischemic bowel, pancreatitis, hepatitis, UTI, gastroenteritis, AAA, incarcerated hernia, bowel obstruction, constipation, inflammatory bowel, hepatitis, peptic ulcer disease, perforated viscus, this is not meant to be an all-inclusive list EKG interpreted by me (3pts min.). @ -None done X-rays interpreted by me (1pt min.). @ -None done CT interpreted by me (1pt min.). @ -CT abdomen/pelvis was reviewed myself and shows pneumoperitoneum. I agree with the radiologist's interpretation as above. U/S interpreted by me (1pt. min.). @ -None done What testing was considered but not performed or refused? (CT, X-rays, U/S, labs)? Why? @ -None What meds were considered but not given or refused? Why? @ -None Did you discuss the management of the patient with other professionals (professionals i.e. , PA, GENERATOR MAN, lab, RT, psych nurse, social media coordinator, color straining bag washer, teacher, security public safety officer, case worker)? Give summary @ -No Was smoking cessation discussed for >3mins.? @ -No Was critical care preformed (if so, how long)? @ -Yes, 40 minutes. Were there social determinants of health that impacted care today? How? (Homelessness, low income, unemployed, alcoholism, drug addiction, transportation, low edu. Level, literacy, decrease access to med. care, [facility], rehab)? @ -No Was there de-escalation of care discussed even if they declined (Discuss DNR or withdrawal of care, Hospice)? DNR status @ -No What co-morbidities impacted this encounter? (DM, HTN, Smoking, COPD, CAD, Cancer, CVA, ARF, Chemo, Hep., AIDS, mental health diagnosis, sleep apnea, morbid obesity)? @ -Metastatic prostate cancer Was patient admitted / discharged? Hospital course, mention meds given and route, prescriptions, significant lab abnormalities, going to OR and other pertinent info. @ -Patient is afebrile and without leukocytosis. Patient has a normal lactic acid level. Patient is hemodynamically stable. Patient has a soft abdominal exam. Patient's CT reveals pneumoperitoneum of uncertain etiology. Dr. Quiros (general [facility]) was consulted from the ED, and he has recommended admitting the patient to the hospital and continuing IV antibiotics. Dr. Rinaldi has accepted hospital admission. Undiagnosed new problem with uncertain prognosis? @ -No Drug Therapy requiring intensive monitoring for toxicity (Heparin, Nitro, Insulin, Cardizem)? @ -No Were any procedures done? @ -No Diagnosis/symptom? @ -Abdominal pain and pneumoperitoneum Acute, or Chronic, or Acute on Chronic? @ -Acute Uncomplicated (without systemic symptoms) or Complicated (systemic symptoms)? @ -default Side effects of treatment? @ -No Exacerbation, Progression, or Severe Exacerbation? @ -No Poses a threat to life or bodily function? How? (Chest pain, USA, [place], pneumonia, PE, COPD, DKA, ARF, appy, cholecystitis, CVA, Diverticulitis, Homicidal, Suicidal, threat to staff... and all critical care pts) @ -Yes. Progression may lead to sepsis and . - Lab Data Result diagrams: 07/11/22 19:47 07/11/22 19:47 Lab Results 07/11/22 07/11/22 07/11/22 Range/Units 19:47 19:47 19:47 WBC 5.4 (3.8-10.6) k/uL RBC 2.81 L (4.30-5.90) m/uL Hgb 8.4 L (13.0-17.5) gm/dL Hct 27.4 L (39.0-53.0) % MCV 97.3 D (80.0-100.0) fL MCH 29.9 (25.0-35.0) pg MCHC 30.8 L (31.0-37.0) g/dL RDW 20.9 H (11.5-15.5) % Plt Count 491 H (150-450) k/uL MPV 9.3 Neutrophils % (Manual) 96 % Lymphocytes % (Manual) 3 % Monocytes % (Manual) 1 % Neutrophils # (Manual) 5.18 (1.3-7.7) k/uL Lymphocytes # (Manual) 0.16 L (1.0-4.8) k/uL Monocytes # (Manual) 0.05 (0-1.0) k/uL Nucleated RBCs 0 (0-0) /100 WBC Manual Slide Review Performed Large Platelets Present Hypochromasia Moderate Poikilocytosis Moderate Anisocytosis Moderate Macrocytosis Moderate Tear Drop Cells Present Ovalocytes Present Fragmented RBCs Present Sodium 137 (137-145) mmol/L Potassium 5.2 H (3.5-5.1) mmol/L Chloride 108 H (98-107) mmol/L Carbon Dioxide 19 L (22-30) mmol/L Anion Gap 10 mmol/L BUN 55 H (9-20) mg/dL Creatinine 1.62 H (0.66-1.25) mg/dL Est GFR (CKD-EPI)AfAm 46 (>60 ml/min/1.73 sqM) Est GFR (CKD-EPI)NonAf 39 (>60 ml/min/1.73 sqM) Glucose 116 H (74-99) mg/dL Plasma Lactic Acid Mika 1.2 (0.7-2.0) mmol/L Calcium 7.1 L (8.4-10.2) mg/dL Total Bilirubin 0.9 (0.2-1.3) mg/dL AST 23 (17-59) U/L ALT 17 (4-49) U/L Alkaline Phosphatase 180 H (38-126) U/L Total Protein 5.4 L (6.3-8.2) g/dL Albumin 3.0 L (3.5-5.0) g/dL Lipase 136 (23-300) U/L - Radiology Data Noncontrast CT abdomen/pelvis: 1. Small volume pneumoperitoneum within the upper abdomen. Concerning for hollow viscera perforation without definitive source identified. 2. Sequela of volume overload including bilateral pleural effusions, abdominal ascites and diffuse body while anasarca. 3. Fat and pneumoperitoneum containing ventral abdominal wall hernia. No evidence for bowel involvement. 4. Stable infrarenal abdominal aortic aneurysm with endograft repair. 5. 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 6. Additional chronic and incidental findings as detailed above. Critical Care Time Critical Care Time: Yes Total Critical Care Time: 40 Disposition Clinical Impression: Abdominal pain, Pneumoperitoneum Disposition: ADMITTED IP TO THIS HOSP Condition: Serious Is patient prescribed a controlled substance at d/c from ED?: No Referrals: Yonatan Judge DO [Primary Care Provider] - 1-2 days Time of Disposition: 21:49
[2022-07-11] MEDS ORDERED: SODIUM CHLORIDE 0.9% 500 ML 500 ML IV ONE (19:33)
[2022-07-11] MEDS ORDERED: HYDROmorphone 0.5 MG/0.5 ML SYRINGE IVP STA (19:34)
[2022-07-11 20:12] LABS: Calcium 7.1 mg/dL (8.4-10.2); Potassium 5.2 mmol/L (3.5-5.1); Total Bilirubin 0.9 mg/dL (0.2-1.3); Total Protein 5.4 g/dL (6.3-8.2)
[2022-07-11 20:14] LABS: Anisocytosis Moderate; HCT 27.4 % (39.0-53.0); HGB 8.4 gm/dL (13.0-17.5); Hypochromasia Moderate; MCH 29.9 pg (25.0-35.0); MCHC 30.8 g/dL (31.0-37.0); MCV 97.3 fL (80.0-100.0); Macrocytosis Moderate; Mean Platelet Volume 9.3; Platelet Count 491 k/uL (150-450); Poikilocytosis Moderate; RBC 2.81 m/uL (4.30-5.90); RDW 20.9 % (11.5-15.5); WBC 5.4 k/uL (3.8-10.6)
[2022-07-11] MEDS ORDERED: PIPERACILLIN-TAZOBACTAM 3.375 GM in SODIUM CHLORIDE 0.9% 100 ML IVPB STA (21:07)
[2022-07-11 21:08] LABS: Lymphocytes # (M) 0.16 k/uL (1.0-4.8); Monocytes # (M) 0.05 k/uL (0-1.0); Neutrophils # (M) 5.18 k/uL (1.3-7.7); Neutrophils % (M) 96 %; Nucleated Red Blood Cells 0 /100 WBC (0-0); Ovalocytes Present; RBC Fragments Present; Tear Drop Cells Present; Total Cells Counted 100
[2022-07-11 21:09] LABS: Large Platelets Present
--- NOTE | 2022-07-11 21:09 | CT ---
EXAMINATION TYPE: CT abdomen pelvis wo con CT DLP: 662.2 mGycm, Automated exposure control for dose reduction was used. DATE OF EXAM: 07/11/2022 8:34 PM COMPARISON: CT sacrum 06/25/2021, CT abdomen pelvis 02/15/2021 CLINICAL INDICATION:Male, 82 years old with history of abdominal pain; abdominal pain, history of [place] cancer TECHNIQUE: Axial CT of the abdomen and pelvis. Sagittal and coronal reformats were created on a Curbside workstation. Contrast used: None. Oral contrast used: without Oral Contrast FINDINGS: LOWER CHEST: Bilateral pleural effusions with associated atelectasis. Cardiomegaly. ABDOMEN LIVER: Diffusely hypoattenuating parenchyma. GALLBLADDER AND BILE DUCTS: Gallbladder is not visualized. No significant extrahepatic biliary ductal dilatation. PANCREAS: Grossly unremarkable for technique. SPLEEN: Granulomas ADRENAL GLANDS: Nodular thickening bilaterally without discrete nodule.. KIDNEYS AND URETERS: Bilateral renal cysts. No hydronephrosis. PELVIS BLADDER: Circumferential bladder wall thickening. REPRODUCTIVE: Prior prostatectomy with surgical clips in the prostate bed. ABDOMEN & PELVIS STOMACH AND BOWEL: Stomach and duodenum are unremarkable. Scattered diverticula are noted throughout the colon. No evidence of bowel obstruction. PERITONEUM: Trace pneumoperitoneum along the upper anterior abdominal wall (series 201, image 31, 35 and 42 and series 203, image 46). Trace ascites. Diffuse mesenteric edema. VASCULATURE: Infrarenal abdominal aortic aneurysm with endograft stent in place. Stent in place. Aneu rysm sac measures up to 5.6 cm in greatest width (series 200, image 147). Moderate calcified atherosc lerosis of the abdominal aorta and distal branches. MUSCULOSKELETAL: Redemonstration of diffuse osteoblastic metastatic disease involving the axial and a ppendicular skeleton. Posterior spinal canal decompression extending from L1 to S1 with posterior fix ation of L1-L2 and L5-S1. No acute hardware abnormality. Stable chronic appearing deformity of the in ferior endplate of T12 with mild retropulsion contributing to at least mild spinal canal stenosis. Mu ltilevel discogenic and degenerative changes. LYMPH NODES: Prominent inguinal lymph nodes, likely reactive. No suspicious intra-abdominal or intrap elvic adenopathy. SOFT TISSUE/ABDOMINAL WALL: Diffuse body wall anasarca. Fat-containing ventral abdominal wall hernia, hernia neck measures 3.1 cm (series 201, image 45). Small volume of pneumoperitoneum tracks within t he hernia sac (series 201, image 42). Postsurgical changes the anterior abdominal wall from prior her vandana repair. Findings communicated to Dr. Jonas Torrez MD on 07/11/2022 8:[address] Renee Dent. IMPRESSION: 1. Small volume pneumoperitoneum within the upper abdomen. Concerning for hollow viscera perforation without definitive source identified. 2. Sequelae of volume overload including bilateral pleural effusions, abdominal ascites and diffuse b obinna wall anasarca. 3. Fat and pneumoperitoneum containing ventral abdominal wall hernia. No evidence for bowel involveme nt. 4. Stable infrarenal abdominal aortic aneurysm with endograft repair. 5. Redemonstration of diffuse osteoblastic metastatic disease within the axial and appendicular skele ton. 6. Additional chronic and incidental findings as detailed above.
[2022-07-11] MEDS ORDERED: NALOXONE 0.4 MG/ML 1 ML VIAL IV PRN (21:49)
[2022-07-11] MEDS ORDERED: SODIUM CHLORIDE 0.9% 1,000 ML IV SCH (22:00)
[2022-07-11 22:03] LABS: INR 1.2 (<1.2); Partial Thromboplastin Time 25.3 sec (22.0-30.0); Prothrombin Time 12.3 sec (9.0-12.0)
[2022-07-11] MEDS: HYDROmorphone 0.5 MG/0.5 ML SYRINGE IVP PRN (22:18)
[2022-07-11] MEDS: oxyCODONE-APAP 7.5-325MG 1 EACH TAB PO PRN (23:20)
[2022-07-12] MEDS: oxyCODONE-APAP 7.5-325MG 1 EACH TAB PO PRN (04:53)
[2022-07-12] MEDS ORDERED: SODIUM CHLORIDE 0.9% 2,000 ML IV ONE (07:38)
[2022-07-12] MEDS ORDERED: SODIUM CHLORIDE 0.9% 1,000 ML IV SCH (07:45)
--- NOTE | 2022-07-12 08:03 | P.HPIM ---
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 He can tell me his name but he does not know he is in the hospital and he thinks is 1941 and he could not tell the name of the president. i called the ms. mabry at [phone] and discussed the case with her, patient is a known case of prostate cancers with metastasis and his been following up with oncologist Dr. Wilkins, is located in the [facility], he is being followed up with him for a while. As per noticed right some strong pills but he needs to seek. Over the last today is been having abdominal pain, stomach pain is explained by the which got more severe yesterday, his pain has been on and off over the last 3 days, usually he is awake and alert. He is been more confused over the last 2 days. He is not eating much and with no bowel movement for the last 2 days Patient could not provide further information and have any other complaints. As per patient is DO NOT RESUSCITATE/DO NOT INTUBATE Patient is afebrile blood pressure was stable: Currently he is on the low side Labs showing mild anemia with hemoglobin 8.4, rest of CBC is unremarkable patient with no leukocytosis INR is 1.2 Creatinine is elevated 1.6 which is at baseline. Potassium 5.2 which is slightly high. Liver enzymes not elevated lipase normal CT of the abdomen and pelvis: Small volume pneumoperitoneum within the upper abdomen concerning for follow-up visit perforation without definitive source identified. Sequelae of volume overload including bilateral pleural effusions, abdominal ascites and diffuse body wall anasarca. Ventral abdominal wall entry with no evidence of bowel involvement. Stable infrarenal abdominal aortic aneurysm with endograft repair. 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,Hx prostate cancer-42 days radiation;Chronic back pain; Chronic anemia, peptic ulcer disease, CVA in June 2015 and MRI of the brain showed increased signal within the cortex of the right frontal and frontoparietal lobes consistent with infarcts., aortic aneurysm with previous insertion of an aortic stent, carotid artery stenosis, increased lower back pain History of Any Multi-Drug Resistant Organisms: None Reported, MRSA Date of last positivie culture/infection: 2011 MDRO Source:: abdominal incision Past Surgical History: Back Surgery, Bladder Surgery, Cholecystectomy, Hernia Repair, Prostate Surgery Additional Past Surgical History / Comment(s): Pain clinic procedure, P rostatectomy, bladder suspension surgery, and vascular stenting of an aortic aneurysm, hemorrhoidectomy, bilateral cataract surgery, back surgery X4 (5-4-16 LAMINECTOMY),rt carotid,hernia x2 Past Anesthesia/Blood Transfusion Reactions: No Reported Reaction Past Psychological History: No Psychological Hx Reported Additional Psychological History / Comment(s): . Smoking Status: Former smoker Past Alcohol Use History: None Reported Additional Past Alcohol Use History / Comment(s): Pt states he started smoking in 1955 and quit in 1987. SMOKED 2 PPD, SMOKED FOR 33 YEARS Past Drug Use History: None Reported - Past Family History Brother(s) Family Medical History: CVA/TIA Son(s) Family Medical History: No Reported History Father Family Medical History: Cancer Additional Family Medical History / Comment(s): BRAIN Mother Family Medical History: Cancer Additional Family Medical History / Comment(s): "BLOOD CANCER" Medications and Allergies Home Medications Medication Instructions Recorded Confirmed Type metFORMIN HCL [Glucophage] 1,000 mg PO AC-SUPPER 10/06/13 07/11/22 History Vitamin B Complex 1 cap PO DAILY 05/02/14 07/11/22 History Cholecalciferol [Vitamin D3 (25 25 mcg PO DAILY 10/13/15 07/11/22 History Mcg = 1000 Iu)] Ubidecarenone [Co Q-10] 100 mg PO DAILY 10/13/15 07/11/22 History Psyllium Husk [Metamucil] 0.4 gm PO TID 03/22/17 07/11/22 History Ascorbic Acid [Vitamin C] 1,000 mg PO DAILY 09/05/18 06/23/22 History Aspirin 325 mg PO DAILY 09/05/18 07/11/22 History Gabapentin [Neurontin] 400 mg PO DIRECTED PRN 03/21/19 07/11/22 History rOPINIRole HCL [Requip] 4 mg PO BID 03/21/19 07/11/22 History Ferrous Sulfate 134mg 134 mg PO DAILY 02/15/21 07/11/22 History Pioglitazone [Actos] 30 mg PO DAILY 02/15/21 07/11/22 History Omeprazole Magnesium [PriLOSEC] 40 mg PO DAILY 02/16/21 07/11/22 History Atorvastatin [Lipitor] 20 mg PO HS 07/11/22 07/11/22 History Cyclobenzaprine [Flexeril] 10 mg PO DAILY PRN 07/11/22 07/11/22 History Indapamide [Lozol] 5 mg PO DAILY 07/11/22 07/11/22 History Levothyroxine Sodium [Synthroid] 50 mcg PO DAILY 07/11/22 07/11/22 History SILVER sulfADIAZINE Cream 1 applic TOPICAL DAILY 07/11/22 07/11/22 History [Silvadene 1% Cream] atenoloL 100 mg PO BID 07/11/22 07/11/22 History Allergies Allergy/AdvReac Type Severity Reaction Status Date / Time No Known Allergies Allergy Verified 07/11/22 22:10 Physical Exam Vitals: Vital Signs Temp Pulse Pulse Resp BP BP Pulse Ox 07/12/22 02:00 97.9 F 57 L 95/50 90 L 07/11/22 23:27 97.8 F 76 20 150/57 90 L 07/11/22 22:23 61 18 144/60 95 07/11/22 21:46 64 18 07/11/22 20:40 61 18 07/11/22 19:29 65 18 07/11/22 19:14 98.1 F 67 20 159/60 99 Intake and Output 07/11/22 07/12/22 07/12/22 22:59 06:59 14:59 Other: # Voids 0 Weight 104.326 kg 104.326 kg -GENERAL: The patient is confused, calm, not in any acute distress. Well developed, well nourished. HEENT: Pupils are round and equally reacting to light. EOMI. No scleral icterus. No conjunctival pallor. Normocephalic, atraumatic. No pharyngeal erythema. No thyromegaly. CARDIOVASCULAR: S1 and S2 present. No murmurs, rubs, or gallops. PULMONARY: Chest is clear to auscultation, no wheezing or crackles. -ABDOMEN: Soft, generalized abdominal tenderness, with guarding, nondistended, normoactive bowel sounds. No palpable organomegaly. MUSCULOSKELETAL: No joint swelling or deformity. EXTREMITIES: No cyanosis, clubbing, or pedal edema. NEUROLOGICAL: Gross neurological examination did not reveal any focal deficits. SKIN: No rashes. no petechiae. Results CBC & Chem 7: 07/11/22 19:47 07/11/22 19:47 Labs: Abnormal Lab Results - Last 24 Hours (Table) 07/11/22 07/11/22 07/11/22 Range/Units 19:47 19:47 21:10 RBC 2.81 L (4.30-5.90) m/uL Hgb 8.4 L (13.0-17.5) gm/dL Hct 27.4 L (39.0-53.0) % MCHC 30.8 L (31.0-37.0) g/dL RDW 20.9 H (11.5-15.5) % Plt Count 491 H (150-450) k/uL Lymphocytes # (Manual) 0.16 L (1.0-4.8) k/uL PT 12.3 H (9.0-12.0) sec INR 1.2 H (<1.2) Potassium 5.2 H (3.5-5.1) mmol/L Chloride 108 H (98-107) mmol/L Carbon Dioxide 19 L (22-30) mmol/L BUN 55 H (9-20) mg/dL Creatinine 1.62 H (0.66-1.25) mg/dL Glucose 116 H (74-99) mg/dL Calcium 7.1 L (8.4-10.2) mg/dL Alkaline Phosphatase 180 H (38-126) U/L Total Protein 5.4 L (6.3-8.2) g/dL Albumin 3.0 L (3.5-5.0) g/dL Thrombosis Risk Factor Assmnt - Choose All That Apply Any of the Below Risk Factors Present?: No Each Risk Factor Represents 3 Points: Age 75 years or older Other congenital or acquired thrombophilia - If yes, enter type in comment: No Thrombosis Risk Factor Assessment Total Risk Factor Score: 3 Thrombosis Risk Factor Assessment Level: Moderate Risk Assessment and Plan Assessment: Acute Pneumoperitoneum mostly secondary to perforated viscus Hypotension secondary to above Nontoxic metabolic encephalopathy secondary to above prostate cancer status post radiotherapy with 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 Continue same treatment. Continue with symptomatic treatment. Resume home medication. Monitor labs and vitals. DVT and GI prophylaxis. Further recommendations as per clinical course of the patient DVT prophylaxis: Subcutaneous heparin GI Prophylaxis: Ppi Prognosis is guarded CODE STATUS: DO NOT RESUSCITATE as per
[2022-07-12] MEDS: HEPARIN SODIUM,PORCINE/PF 5,000 UNIT/0.5 ML SYRINGE SQ SCH ×2 (08:39→20:10)
[2022-07-12] MEDS: PIPERACILLIN-TAZOBACTAM 3.375 GM in SODIUM CHLORIDE 0.9% 100 ML IVPB SCH ×3 (08:39→23:50)
[2022-07-12] MEDS: PANTOPRAZOLE 40 MG/10 ML VIAL IVP SCH (08:40)
[2022-07-12] MEDS: INSULIN ASPART (NovoLOG) 100 UNIT/ML VIAL SQ SCH ×3 (08:45→20:38)
[2022-07-12 08:46] LABS: Glucose,Whole Blood <20 mg/dL (70-110)
[2022-07-12] MEDS ORDERED: DEXTROSE 50% SYRINGE 50 ML IVP ONE ×2 (08:50→20:20)
[2022-07-12] MEDS: DEXTROSE 50% SYRINGE 50 ML IVP PRN ×3 (08:51→18:04)
[2022-07-12 09:09] LABS: Glucose,Whole Blood 120 mg/dL (70-110)
--- NOTE | 2022-07-12 09:36 | P.GSCN ---
History of Present Illness Consult date: 07/12/22 Reason for Consult: Abdominal pain, free air History of present illness: Is an 82-year-old male who was admitted through the emergency room last night. Patient had complaints of acute onset of abdominal pain. Patient has a known history of metastatic prostate cancer. Patient's CAT scan showed some evidence of free air without any significant inflammatory changes of the bowel. The location of the bowel perforation is not evident on the CAT scan. The patient states that he had some pain this morning hours currently. The resting in his bed. Patient multiple medical problems. He has been on L Misael prior to admission. 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,Hx prostate cancer-42 days radiation;Chronic back pain; Chronic anemia, peptic ulcer disease, CVA in June 2015 and MRI of the brain showed increased signal within the cortex of the right frontal and frontoparietal lobes consistent with infarcts., aortic aneurysm with previous insertion of an aortic stent, carotid artery stenosis, increased lower back pain History of Any Multi-Drug Resistant Organisms: None Reported, MRSA Year Discovered:: 2011 MDRO Source:: abdominal incision Past Surgical History: Back Surgery, Bladder Surgery, Cholecystectomy, Hernia Repair, Prostate Surgery Additional Past Surgical History / Comment(s): Pain clinic procedure, Prostatectomy, bladder suspension surgery, and vascular stenting of an aortic aneurysm, hemorrhoidectomy, bilateral cataract surgery, back surgery X4 (5-4-16 LAMINECTOMY),rt carotid,hernia x2 Past Anesthesia/Blood Transfusion Reactions: No Reported Reaction Past Psychological History: No Psychological Hx Reported Additional Psychological History / Comment(s): . Smoking Status: Former smoker Past Alcohol Use History: None Reported Additional Past Alcohol Use History / Comment(s): Pt states he started smoking in 1955 and quit in 1987. SMOKED 2 PPD, SMOKED FOR 33 YEARS Past Drug Use History: None Reported - Past Family History Brother(s) Family Medical History: CVA/TIA Son(s) Family Medical History: No Reported History Father Family Medical History: Cancer Additional Family Medical History / Comment(s): BRAIN Mother Family Medical History: Cancer Additional Family Medical History / Comment(s): "BLOOD CANCER" Medications and Allergies Home Medications Medication Instructions Recorded Confirmed Type metFORMIN HCL [Glucophage] 1,000 mg PO AC-SUPPER 10/06/13 07/11/22 History Vitamin B Complex 1 cap PO DAILY 05/02/14 07/11/22 History Cholecalciferol [Vitamin D3 (25 25 mcg PO DAILY 10/13/15 07/11/22 History Mcg = 1000 Iu)] Ubidecarenone [Co Q-10] 100 mg PO DAILY 10/13/15 07/11/22 History Psyllium Husk [Metamucil] 0.4 gm PO TID 03/22/17 07/11/22 History Ascorbic Acid [Vitamin C] 1,000 mg PO DAILY 09/05/18 06/23/22 History Aspirin 325 mg PO DAILY 09/05/18 07/11/22 History Gabapentin [Neurontin] 400 mg PO DIRECTED PRN 03/21/19 07/11/22 History rOPINIRole HCL [Requip] 4 mg PO BID 03/21/19 07/11/22 History Ferrous Sulfate 134mg 134 mg PO DAILY 02/15/21 07/11/22 History Pioglitazone [Actos] 30 mg PO DAILY 02/15/21 07/11/22 History Omeprazole Magnesium [PriLOSEC] 40 mg PO DAILY 02/16/21 07/11/22 History Atorvastatin [Lipitor] 20 mg PO HS 07/11/22 07/11/22 History Cyclobenzaprine [Flexeril] 10 mg PO DAILY PRN 07/11/22 07/11/22 History Indapamide [Lozol] 5 mg PO DAILY 07/11/22 07/11/22 History Levothyroxine Sodium [Synthroid] 50 mcg PO DAILY 07/11/22 07/11/22 History SILVER sulfADIAZINE Cream 1 applic TOPICAL DAILY 07/11/22 07/11/22 History [Silvadene 1% Cream] atenoloL 100 mg PO BID 07/11/22 07/11/22 History Allergies Allergy/AdvReac Type Severity Reaction Status Date / Time No Known Allergies Allergy Verified 07/11/22 22:10 Surgical - Exam Vital Signs Temp Pulse Resp BP Pulse Ox 98.1 F 67 20 159/60 99 07/11/22 19:14 07/11/22 19:14 07/11/22 19:14 07/11/22 19:14 07/11/22 19:14 - General well developed, well nourished, no distress - Eyes PERRL - ENT normal pinna - Neck no masses - Respiratory normal expansion - Cardiovascular Rhythm: regular - Abdomen Abdomen is distended, obese. The patient while lying in bed has no pain. However he does have some pain with deep palpation. Abdomen: soft Results - Labs 07/11/22 19:47 07/11/22 19:47 Abnormal Lab Results - Last 24 Hours (Table) 07/11/22 07/11/22 07/11/22 Range/Units 19:47 19:47 21:10 RBC 2.81 L (4.30-5.90) m/uL Hgb 8.4 L (13.0-17.5) gm/dL Hct 27.4 L (39.0-53.0) % MCHC 30.8 L (31.0-37.0) g/dL RDW 20.9 H (11.5-15.5) % Plt Count 491 H (150-450) k/uL Lymphocytes # (Manual) 0.16 L (1.0-4.8) k/uL PT 12.3 H (9.0-12.0) sec INR 1.2 H (<1.2) Potassium 5.2 H (3.5-5.1) mmol/L Chloride 108 H (98-107) mmol/L Carbon Dioxide 19 L (22-30) mmol/L BUN 55 H (9-20) mg/dL Creatinine 1.62 H (0.66-1.25) mg/dL Glucose 116 H (74-99) mg/dL POC Glucose (mg/dL) (70-110) mg/dL Calcium 7.1 L (8.4-10.2) mg/dL Alkaline Phosphatase 180 H (38-126) U/L Total Protein 5.4 L (6.3-8.2) g/dL Albumin 3.0 L (3.5-5.0) g/dL 07/12/22 07/12/22 Range/Units 08:44 09:07 RBC (4.30-5.90) m/uL Hgb (13.0-17.5) gm/dL Hct (39.0-53.0) % MCHC (31.0-37.0) g/dL RDW (11.5-15.5) % Plt Count (150-450) k/uL Lymphocytes # (Manual) (1.0-4.8) k/uL PT (9.0-12.0) sec INR (<1.2) Potassium (3.5-5.1) mmol/L Chloride (98-107) mmol/L Carbon Dioxide (22-30) mmol/L BUN (9-20) mg/dL Creatinine (0.66-1.25) mg/dL Glucose (74-99) mg/dL POC Glucose (mg/dL) <20 L 120 H (70-110) mg/dL Calcium (8.4-10.2) mg/dL Alkaline Phosphatase (38-126) U/L Total Protein (6.3-8.2) g/dL Albumin (3.5-5.0) g/dL Diabetes panel 07/11/22 Range/Units 19:47 Sodium 137 (137-145) mmol/L Potassium 5.2 H (3.5-5.1) mmol/L Chloride 108 H (98-107) mmol/L Carbon Dioxide 19 L (22-30) mmol/L BUN 55 H (9-20) mg/dL Creatinine 1.62 H (0.66-1.25) mg/dL Glucose 116 H (74-99) mg/dL Calcium 7.1 L (8.4-10.2) mg/dL AST 23 (17-59) U/L ALT 17 (4-49) U/L Alkaline Phosphatase 180 H (38-126) U/L Total Protein 5.4 L (6.3-8.2) g/dL Albumin 3.0 L (3.5-5.0) g/dL Calcium panel 07/11/22 Range/Units 19:47 Calcium 7.1 L (8.4-10.2) mg/dL Albumin 3.0 L (3.5-5.0) g/dL Pituitary panel 07/11/22 Range/Units 19:47 Sodium 137 (137-145) mmol/L Potassium 5.2 H (3.5-5.1) mmol/L Chloride 108 H (98-107) mmol/L Carbon Dioxide 19 L (22-30) mmol/L BUN 55 H (9-20) mg/dL Creatinine 1.62 H (0.66-1.25) mg/dL Glucose 116 H (74-99) mg/dL Calcium 7.1 L (8.4-10.2) mg/dL Adrenal panel 07/11/22 Range/Units 19:47 Sodium 137 (137-145) mmol/L Potassium 5.2 H (3.5-5.1) mmol/L Chloride 108 H (98-107) mmol/L Carbon Dioxide 19 L (22-30) mmol/L BUN 55 H (9-20) mg/dL Creatinine 1.62 H (0.66-1.25) mg/dL Glucose 116 H (74-99) mg/dL Calcium 7.1 L (8.4-10.2) mg/dL Total Bilirubin 0.9 (0.2-1.3) mg/dL AST 23 (17-59) U/L ALT 17 (4-49) U/L Alkaline Phosphatase 180 H (38-126) U/L Total Protein 5.4 L (6.3-8.2) g/dL Albumin 3.0 L (3.5-5.0) g/dL - Imaging CT scan - abdomen: report reviewed (CT the abdomen is reviewed. There is evidence of free air.) Assessment and Plan Plan: Pneumoperitoneum. Abdominal pain. I'll a discussion with the patient's. The patient does not wish to undergo any operative repair of his pneumoperitoneum. He is extremely high risk for surgery. I also had a phone discussion with the patient's Apryl. She is in agreement that he should not undergo surgery due to his underlying comorbidi ties. I discussed this with Dr. villa. The patient will be medically managed. No surgical intervention is planned. If he needs to have comfort care measures layer we will discuss that with the family.
[2022-07-12 09:45] LABS: ALT 14 U/L (4-49); AST 21 U/L (17-59); African American GFR (CKD) 36 (>60 ml/min/1.73 sqM); Albumin 2.1 g/dL (3.5-5.0); Albumin/Globulin Ratio 1.1; Alkaline Phosphatase 126 U/L (38-126); Anion Gap 9 mmol/L; Bilirubin,Unconjugated 0.5 mg/dL (0.0-1.1); Blood Urea Nitrogen 55 mg/dL (9-20); Carbon Dioxide 17 mmol/L (22-30); Chloride 112 mmol/L (98-107); Glucose 182 mg/dL (74-99); Non-African American GFR(CKD) 31 (>60 ml/min/1.73 sqM); Potassium 5.7 mmol/L (3.5-5.1); Sodium 138 mmol/L (137-145); Total Protein 4.1 g/dL (6.3-8.2)
[2022-07-12 10:12] LABS: Anisocytosis Moderate; HCT 25.9 % (39.0-53.0); HGB 7.7 gm/dL (13.0-17.5); Hypochromasia Marked; MCH 30.1 pg (25.0-35.0); MCHC 29.8 g/dL (31.0-37.0); MCV 101.1 fL (80.0-100.0); Macrocytosis Moderate; Mean Platelet Volume 9.7; Platelet Count 465 k/uL (150-450); Poikilocytosis Slight; RBC 2.56 m/uL (4.30-5.90); RDW 20.7 % (11.5-15.5); WBC 4.6 k/uL (3.8-10.6)
[2022-07-12] MEDS ORDERED: SODIUM BICARB 8.4% 50 ML SYR (1 MEQ/ML) IV STA (10:27)
[2022-07-12] MEDS ORDERED: ALBUTEROL HFA INHALER INHALATION STA (10:28)
[2022-07-12] MEDS ORDERED: CALCIUM GLUCONATE IN NACL 1 GM in SALINE 1 100ML.BAG IVPB ONE ×2 (10:45→20:20)
[2022-07-12 10:49] LABS: Band Neutrophils % 22 %; Eosinophils # (M) 0.05 k/uL (0-0.7); Lymphocytes # (M) 0.14 k/uL (1.0-4.8); Metamyelocytes # (M) 0.05 k/uL (0); Metamyelocytes % 1 %; Monocytes # (M) 0.05 k/uL (0-1.0); Myelocytes # (M) 0.05 k/uL (0); Myelocytes % 1 %; Neutrophils % (M) 73 %; Nucleated Red Blood Cells 0 /100 WBC (0-0); Total Cells Counted 200
[2022-07-12 10:52] LABS: Tear Drop Cells Present; Toxic Vacuolation Present
[2022-07-12] MEDS: DEXTROSE 5%-0.9% NACL 1,000 ML IV SCH ×4 (10:57→19:46)
[2022-07-12] MEDS: LEVOTHYROXINE IVP 100 MCG/5 ML VIAL IV SCH (10:57)
[2022-07-12 11:30] LABS: Glucose,Whole Blood 44 mg/dL (70-110)
--- NOTE | 2022-07-12 12:07 | P.CNPUL ---
History of Present Illness Consult date: 07/12/22 Requesting physician: Vince Rinaldi Reason for consult: dyspnea Chief complaint: Right lower quadrant abdominal pain History of present illness: This is a pleasant 82-year-old with a known history of diabetes mellitus, hypothyroidism, hyperlipidemia, gastroesophageal reflux disease, hypertension, abdominal aortic aneurysm repair. He also has a history of metastatic prostate cancer status post radiation and hysterectomy. He presented to the emergency room last evening with a 1-2 hour history of right lower quadrant abdominal pain. Computed tomography scan of the abdomen revealed a small volume pneumoperitoneum within the upper abdomen. Concerning for hollow viscera perforation without defined source identified. There is sequela of volume overload including bilateral pleural effusions, abdominal ascites and diffuse body wall anasarca. That and pneumoperitoneum containing ventral abdominal wall hernia. No evidence for bowel involvement. Stable infrarenal abdominal aortic aneurysm with endograft repair. 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 White count 4.6. Hemoglobin 7.7. Platelets 465. INR 1.2. Sodium 138. Potassium 5.7. Bicarb 17. BUN 55. Creatinine 1.99. Glucose 182. Calcium 6.0. If the patient is seen today in consultation on the regular medical floor. He is currently awake and alert. He is quite pale. He is slightly tachypneic. Maintaining O2 saturation 90-95% on room air. He's afebrile. He's been initiated on Zosyn. Heparin for DVT prophylaxis. Review of Systems REVIEW OF SYSTEMS: CONSTITUTIONAL: Denies any recent significant weight loss or weight gain. EYES: Denies change in vision. EARS, NOSE, MOUTH, THROAT: Denies headaches, denies sore throat. CARDIOVASCULAR: Denies chest pain, palpitations or syncopal episodes. RESPIRATORY: Positive for shortness of breath, no cough, congestion or hemoptysis. GASTROINTESTINAL: Positive for abdominal pain GENITOURINARY: Denies hematuria, denies infections. MUSKULOSKELETAL: Denies pain, denies swelling. INTEGUMENTARY: Denies rash, denies eczema. NEUROLOGICAL: Denies recent memory loss, no recent seizure activity. PSYCHIATRIC: Denies anxiety, denies depression. HEMATOLOGIC/LYMPHATIC: Denies anemia, denies enlarged lymph nodes. 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,Hx prostate cancer-42 days radiation;Chronic back pain; Chronic anemia, peptic ulcer disease, CVA in June 2015 and MRI of the brain showed increased signal within the cortex of the right frontal and frontoparietal lobes consistent with infarcts., aortic aneurysm with previous insertion of an aortic stent, carotid artery stenosis, increased lower back pain History of Any Multi-Drug Resistant Organisms: None Reported, MRSA Date of last positivie culture/infection: 2011 MDRO Source:: abdominal incision Past Surgical History: Back Surgery, Bladder Surgery, Cholecystectomy, Hernia Repair, Prostate Surgery Additional Past Surgical History / Comment(s): Pain clinic procedure, Prostatectomy, bladder suspension surgery, and vascular stenting of an aortic aneurysm, hemorrhoidectomy, bilateral cataract surgery, back surgery X4 (5-4-16 LAMINECTOMY),rt carotid,hernia x2 Past Anesthesia/Blood Transfusion Reactions: No Reported Reaction Past Psychological History: No Psychological Hx Reported Additional Psychological History / Comment(s): . Smoking Status: Former smoker Past Alcohol Use History: None Reported Additional Past Alcohol Use History / Comment(s): Pt states he started smoking in 1955 and quit in 1987. SMOKED 2 PPD, SMOKED FOR 33 YEARS Past Drug Use History: None Reported - Past Family History Brother(s) Family Medical History: CVA/TIA Son(s) Family Medical History: No Reported History Father Family Medical History: Cancer Additional Family Medical History / Comment(s): BRAIN Mother Family Medical History: Cancer Additional Family Medical History / Comment(s): "BLOOD CANCER" Medications and Allergies Home Medications Medication Instructions Recorded Confirmed Type metFORMIN HCL [Glucophage] 1,000 mg PO AC-SUPPER 10/06/13 07/11/22 History Vitamin B Complex 1 cap PO DAILY 05/02/14 07/11/22 History Cholecalciferol [Vitamin D3 (25 25 mcg PO DAILY 10/13/15 07/11/22 History Mcg = 1000 Iu)] Ubidecarenone [Co Q-10] 100 mg PO DAILY 10/13/15 07/11/22 History Psyllium Husk [Metamucil] 0.4 gm PO TID 03/22/17 07/11/22 History Ascorbic Acid [Vitamin C] 1,000 mg PO DAILY 09/05/18 06/23/22 History Aspirin 325 mg PO DAILY 09/05/18 07/11/22 History Gabapentin [Neurontin] 400 mg PO DIRECTED PRN 03/21/19 07/11/22 History rOPINIRole HCL [Requip] 4 mg PO BID 03/21/19 07/11/22 History Ferrous Sulfate 134mg 134 mg PO DAILY 02/15/21 07/11/22 History Pioglitazone [Actos] 30 mg PO DAILY 02/15/21 07/11/22 History Omeprazole Magnesium [PriLOSEC] 40 mg PO DAILY 02/16/21 07/11/22 History Atorvastatin [Lipitor] 20 mg PO HS 07/11/22 07/11/22 History Cyclobenzaprine [Flexeril] 10 mg PO DAILY PRN 07/11/22 07/11/22 History Indapamide [Lozol] 5 mg PO DAILY 07/11/22 07/11/22 History Levothyroxine Sodium [Synthroid] 50 mcg PO DAILY 07/11/22 07/11/22 History SILVER sulfADIAZINE Cream 1 applic TOPICAL DAILY 07/11/22 07/11/22 History [Silvadene 1% Cream] atenoloL 100 mg PO BID 07/11/22 07/11/22 History Allergies Allergy/AdvReac Type Severity Reaction Status Date / Time No Known Allergies Allergy Verified 07/11/22 22:10 Physical Exam Vitals: Vital Signs Temp Pulse Pulse Resp BP BP Pulse Ox 07/12/22 09:10 118/59 07/12/22 07:12 97.0 F L 69 20 83/48 91 L 07/12/22 02:00 97.9 F 57 L 95/50 90 L 07/11/22 23:27 97.8 F 76 20 150/57 90 L 07/11/22 22:23 61 18 144/60 95 07/11/22 21:46 64 18 07/11/22 20:40 61 18 07/11/22 19:29 65 18 07/11/22 19:14 98.1 F 67 20 159/60 99 Intake and Output 07/11/22 07/12/22 07/12/22 22:59 06:59 14:59 Other: # Voids 0 Weight 104.326 kg 104.326 kg GENERAL EXAM: Alert, pale, weak 82-year-old male patient, on room air. HEAD: Normocephalic. EYES: Normal reaction of pupils, equal size. NOSE: Clear with pink turbinates. THROAT: No erythema or exudates. NECK: No masses, no JVD. CHEST: No chest wall deformity. LUNGS: Equal air entry with faint crackles in the posterior bases. CVS: S1 and S2 normal with no audible murmur, regular rhythm. ABDOMEN: Tenderness and guarding of the abdomen. Distended. SPINE: No scoliosis or deformity SKIN: No rashes CENTRAL NERVOUS SYSTEM: No focal deficits, tone is normal in all 4 extremities. EXTREMITIES: There is no peripheral edema. No clubbing, no cyanosis. Peripheral pulses are intact. Results - Laboratory Findings CBC and BMP: 07/12/22 08:59 07/12/22 08:59 PT/INR, D-dimer PT 12.3 sec (9.0-12.0) H 07/11/22 21:10 INR 1.2 (<1.2) H 07/11/22 21:10 Abnormal lab findings: Abnormal Labs 07/11/22 07/11/22 07/11/22 19:47 19:47 21:10 RBC 2.81 L Hgb 8.4 L Hct 27.4 L MCV MCHC 30.8 L RDW 20.9 H Plt Count 491 H Lymphocytes # (Manual) 0.16 L Metamyelocytes # (Man) Myelocytes # (Manual) PT 12.3 H INR 1.2 H Potassium 5.2 H Chloride 108 H Carbon Dioxide 19 L BUN 55 H Creatinine 1.62 H Glucose 116 H POC Glucose (mg/dL) Calcium 7.1 L Alkaline Phosphatase 180 H Total Protein 5.4 L Albumin 3.0 L 07/12/22 07/12/22 07/12/22 08:44 08:59 08:59 RBC 2.56 L Hgb 7.7 L Hct 25.9 L MCV 101.1 H MCHC 29.8 L RDW 20.7 H Plt Count 465 H Lymphocytes # (Manual) 0.14 L Metamyelocytes # (Man) 0.05 H Myelocytes # (Manual) 0.05 H PT INR Potassium 5.7 H Chloride 112 H Carbon Dioxide 17 L BUN 55 H Creatinine 1.99 H Glucose 182 H POC Glucose (mg/dL) <20 L Calcium 6.0 L* Alkaline Phosphatase Total Protein 4.1 L Albumin 2.1 L 07/12/22 07/12/22 09:07 11:29 RBC Hgb Hct MCV MCHC RDW Plt Count Lymphocytes # (Manual) Metamyelocytes # (Man) Myelocytes # (Manual) PT INR Potassium Chloride Carbon Dioxide BUN Creatinine Glucose POC Glucose (mg/dL) 120 H 44 L Calcium Alkaline Phosphatase Total Protein Albumin Assessment and Plan Assessment: Acute abdominal pain. Computed tomography scan of the abdomen revealed a small volume pneumoperitoneum within the upper abdomen. Concerning for hollow viscera perforation without defined source identified. There is sequela of volume ove rload including bilateral pleural effusions, abdominal ascites and diffuse body wall anasarca. That and pneumoperitoneum containing ventral abdominal wall hernia. No evidence for bowel involvement. Stable infrarenal abdominal aortic aneurysm with endograft repair. 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 Acute kidney injury Hyperkalemia secondary to above Acute on chronic anemia History of metastatic prostate cancer Diabetes mellitus, type II Hypothyroidism Hyperlipidemia Plan: The patient was seen and evaluated Computed tomography scan, medications and labs reviewed The patient and his are declining any surgical intervention He is a DO NOT RESUSCITATE/DO NOT INTUBATE CODE STATUS May benefit from hospice/comfort care No plans for transfer to the intensive care unit I have personally seen and examined the patient, performed the documentation and the assessment and plan as written. Number of minutes spent on the visit: 20.
[2022-07-12 12:13] LABS: Glucose,Whole Blood 99 mg/dL (70-110)
[2022-07-12 16:12] LABS: Glucose,Whole Blood 125 mg/dL (70-110)
[2022-07-12 17:48] LABS: Glucose,Whole Blood 65 mg/dL (70-110)
[2022-07-12] MEDS ORDERED: SODIUM CHLORIDE 0.9% 1,000 ML IV ONE (18:03)
[2022-07-12 18:38] LABS: Glucose,Whole Blood 79 mg/dL (70-110)
[2022-07-12 19:47] LABS: Glucose,Whole Blood 120 mg/dL (70-110)
[2022-07-12] MEDS: HYDROmorphone 0.5 MG/0.5 ML SYRINGE IVP PRN (20:09)
[2022-07-12] MEDS ORDERED: INSULIN REGULAR 100 UNIT/ML VIAL (IV) IV ONE (20:20)
[2022-07-12] MEDS ORDERED: SODIUM BICARB 8.4% 50 ML SYR (1 MEQ/ML) IV ONE (20:20)
[2022-07-12] MEDS ORDERED: ALBUTEROL NEBULIZED 2.5 MG/3 ML INHALATION STA (21:11)
[2022-07-12] MEDS: NOREPINEPHRINE 4 MG in SODIUM CHLORIDE 0.9% 250 ML IV SCH (21:49)
[2022-07-12 21:54] LABS: Glucose,Whole Blood 167 mg/dL (70-110)
[2022-07-12] MEDS: HYDROmorphone 1 MG/ML 1 ML SYRINGE IVP PRN (23:50)
[2022-07-13] MEDS: NOREPINEPHRINE 4 MG in SODIUM CHLORIDE 0.9% 250 ML IV SCH ×2
[2022-07-13 00:51] LABS: Glucose,Whole Blood 75 mg/dL (70-110)
[2022-07-13] MEDS: INSULIN ASPART (NovoLOG) 100 UNIT/ML VIAL SQ SCH ×4 (01:29→11:56)
[2022-07-13] MEDS: DEXTROSE 5%-0.9% NACL 1,000 ML IV SCH (04:01)
[2022-07-13 04:20] LABS: Glucose,Whole Blood 70 mg/dL (70-110)
[2022-07-13] MEDS: DEXTROSE 50% SYRINGE 50 ML IVP PRN (04:24)
[2022-07-13] MEDS: HYDROmorphone 1 MG/ML 1 ML SYRINGE IVP PRN ×4 (04:43→21:43)
[2022-07-13 04:51] LABS: Glucose,Whole Blood 137 mg/dL (70-110)
[2022-07-13] MEDS ORDERED: SODIUM CHLORIDE 0.9% 500 ML 500 ML IV ONE (05:13)
[2022-07-13 06:18] LABS: Anisocytosis Moderate; HCT 26.5 % (39.0-53.0); HGB 7.6 gm/dL (13.0-17.5); Hypochromasia Marked; MCH 30.4 pg (25.0-35.0); MCHC 28.7 g/dL (31.0-37.0); Macrocytosis Marked; Mean Platelet Volume 9.8; Platelet Count 529 k/uL (150-450); Poikilocytosis Slight; WBC 12.4 k/uL (3.8-10.6)
[2022-07-13 06:20] LABS: MCV 106.1 fL (80.0-100.0)
[2022-07-13 06:35] LABS: Anisocytosis (M) Present; Band Neutrophils % 68 %; Metamyelocytes # (M) 2.23 k/uL (0); Metamyelocytes % 18 %; Monocytes # (M) 0.37 k/uL (0-1.0); Myelocytes # (M) 0.12 k/uL (0); Myelocytes % 1 %; Neutrophils % (M) 6 %; Nucleated Red Blood Cells 0 /100 WBC (0-0); Poikilocytosis (M) Present; Total Cells Counted 200
[2022-07-13 06:36] LABS: Crenated RBC Present; Ovalocytes Present; Polychromasia Present
[2022-07-13 06:43] LABS: Calcium 5.8 mg/dL (8.4-10.2); Potassium 6.1 mmol/L (3.5-5.1)
[2022-07-13] MEDS ORDERED: SODIUM BICARB 8.4% 50 ML SYR (1 MEQ/ML) IV STA ×2 (06:49→08:23)
[2022-07-13] MEDS ORDERED: ALBUTEROL NEBULIZED 2.5 MG/3 ML INHALATION STA (06:50)
[2022-07-13] MEDS ORDERED: DEXTROSE 50% SYRINGE 50 ML IVP STA (06:51)
[2022-07-13] MEDS ORDERED: FUROSEMIDE 10 MG/ML 2 ML VIAL IV ONE (06:52)
[2022-07-13] MEDS ORDERED: INSULIN REGULAR 100 UNIT/ML VIAL (IV) IV ONE (06:59)
[2022-07-13] MEDS ORDERED: CALCIUM GLUCONATE IN NACL 1 GM in SALINE 1 100ML.BAG IVPB ONE ×2 (07:30→09:00)
[2022-07-13 07:53] LABS: Glucose,Whole Blood 99 mg/dL (70-110)
--- NOTE | 2022-07-13 07:59 | P.PN ---
Subjective Progress Note Date: 07/13/22 This is an 82-year-old male patient, known history of prostatic cancer metastatic, in addition to abdominal aortic aneurysm that has not a period, hypertension hyperlipidemia hypothyroidism and diabetes mellitus. The patient came into the hospital because of abdominal pain and the patient was found to ramos ve pneumoperitoneum. Nevertheless, the patient was not taken to surgery upon patient and family wishes. General surgery consultation was obtained and the patient was not taken to the operating room accordingly. This morning, the patient is on oxygen at 3 L. Is quite lethargic. 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 He is on IV fluids which is running at 130 mL an hour and he is also on norepinephrine running at 0.05 mcg/kg/m. The cardiac rhythm is sinus. Pulse ox is 94% on 3 L of oxygen by nasal cannula. IV fluids are in the form of D5 0.9. The rate of 130 mL an hour. There was some interest in hospice care yesterday. This has not been fully implemented. The patient is still being treated. White cell count up to 12.4 with a hemoglobin of 7.6 and a platelet count of 529. Potassium level was as high as 6.4 and was treated and it's down to 6.1. Serum bicarb is at 16. BUN is at 57 with a creatinine of 2.3 and the patient has obviously developed acute kidney injury with progressive worsening in renal function. He is not making any urine output and he has not made any urine output over the past 24 hours. He is diabetic. He has had a previous history of CVA and previous MRI of the brain back in thousand and 16 at shown abnormal signal within the cortex of the right frontal and frontoparietal lobes consistent with infarcts. Is also known to have carotid artery stenosis. This morning, the patient is quite lethargic. The patient has been receiving Dilaudid 1 mg every 3 hours for pain control. Objective - Vital Signs Vital signs: Vital Signs Temp 97.9 F 07/13/22 06:30 Pulse 75 07/13/22 07:00 Resp 12 07/13/22 07:00 BP 98/51 07/13/22 07:00 Pulse Ox 91 L 07/13/22 07:00 FiO2 Intake & Output 07/12/22 07/13/22 07/13/22 18:59 06:59 18:59 Intake Total 630 2218.884 273.094 Output Total 400 0 Balance 230 2218.884 273.094 Weight 79.3 kg Intake: IV 630 2190 130 Dextrose 5%-0.9% NaCl 1, 130 1690 130 000 ml @ 130 mls/hr IV . Q7H42M [facility] Rx#:[id number] Sodium Chloride 0.9% 1, 500 500 000 ml @ 999 mls/hr IV . Q1H1M [facility] Rx#:[id number] Intake, IV Titration .884 143.094 Amount Norepinephrine 4 mg In 28.884 143.094 Sodium Chloride 0.9% 250 ml @ 0.03 MCG/KG/MIN 11. 924 mls/hr IV .[id number] [facility] Rx#:[id number] Output: Urine 400 0 Other: Voiding Method External Catheter External Catheter - Exam GENERAL EXAM: Alert, pale, weak 82-year-old male patient, on 3 L of oxygen by nasal cannula. The patient is quite lethargic under the effect of Dilaudid. Breathing is slightly labored. The patient has 2 point restraints.. HEAD: Normocephalic. EYES: Normal reaction of pupils, equal size. NOSE: Clear with pink turbinates. THROAT: No erythema or exudates. NECK: No masses, no JVD. CHEST: No chest wall deformity. LUNGS: Equal air entry with faint crackles in the posterior bases. CVS: S1 and S2 normal with no audible murmur, regular rhythm. ABDOMEN: Tenderness and guarding of the abdomen. Distended. There is an anterior abdominal wall scar. Is also an anterior abdominal wall hernia which is quite tender. There is diffuse tenderness throughout the abdominal wall. There is peritoneal signs. No fluid wave or ascites. Absent bowel sounds. SPINE: No scoliosis or deformity SKIN: No rashes CENTRAL NERVOUS SYSTEM: No focal deficits, tone is normal in all 4 extremities. EXTREMITIES: There is no peripheral edema. No clubbing, no cyanosis. Peripheral pulses are intact. - Labs CBC & Chem 7: 07/13/22 04:59 07/13/22 04:59 Labs: Abnormal Lab Results - Last 24 Hours (Table) 07/12/22 07/12/22 07/12/22 Range/Units 08:44 08:59 08:59 WBC (3.8-10.6) k/uL RBC 2.56 L (4.30-5.90) m/uL Hgb 7.7 L (13.0-17.5) gm/dL Hct 25.9 L (39.0-53.0) % MCV 101.1 H (80.0-100.0) fL MCHC 29.8 L (31.0-37.0) g/dL RDW 20.7 H (11.5-15.5) % Plt Count 465 H (150-450) k/uL Neutrophils # (Manual) (1.3-7.7) k/uL Lymphocytes # (Manual) 0.14 L (1.0-4.8) k/uL Metamyelocytes # (Man) 0.05 H (0) k/uL Myelocytes # (Manual) 0.05 H (0) k/uL Macrocytosis Potassium 5.7 H (3.5-5.1) mmol/L Chloride 112 H (98-107) mmol/L Carbon Dioxide 17 L (22-30) mmol/L BUN 55 H (9-20) mg/dL Creatinine 1.99 H (0.66-1.25) mg/dL Glucose 182 H (74-99) mg/dL POC Glucose (mg/dL) <20 L (70-110) mg/dL Calcium 6.0 L* (8.4-10.2) mg/dL Total Protein 4.1 L (6.3-8.2) g/dL Albumin 2.1 L (3.5-5.0) g/dL Prolactin 1.300 L (2.100-17.700) ng/mL 07/12/22 07/12/22 07/12/22 Range/Units 09:07 11:29 16:10 WBC (3.8-10.6) k/uL RBC (4.30-5.90) m/uL Hgb (13.0-17.5) gm/dL Hct (39.0-53.0) % MCV (80.0-100.0) fL MCHC (31.0-37.0) g/dL RDW (11.5-15.5) % Plt Count (150-450) k/uL Neutrophils # (Manual) (1.3-7.7) k/uL Lymphocytes # (Manual) (1.0-4.8) k/uL Metamyelocytes # (Man) (0) k/uL Myelocytes # (Manual) (0) k/uL Macrocytosis Potassium (3.5-5.1) mmol/L Chloride (98-107) mmol/L Carbon Dioxide (22-30) mmol/L BUN (9-20) mg/dL Creatinine (0.66-1.25) mg/dL Glucose (74-99) mg/dL POC Glucose (mg/dL) 120 H 44 L 125 H (70-110) mg/dL Calcium (8.4-10.2) mg/dL Total Protein (6.3-8.2) g/dL Albumin (3.5-5.0) g/dL Prolactin (2.100-17.700) ng/mL 07/12/22 07/12/22 07/12/22 Range/Units 17:45 18:44 19:45 WBC (3.8-10.6) k/uL RBC (4.30-5.90) m/uL Hgb (13.0-17.5) gm/dL Hct (39.0-53.0) % MCV (80.0-100.0) fL MCHC (31.0-37.0) g/dL RDW (11.5-15.5) % Plt Count (150-450) k/uL Neutrophils # (Manual) (1.3-7.7) k/uL Lymphocytes # (Manual) (1.0-4.8) k/uL Metamyelocytes # (Man) (0) k/uL Myelocytes # (Manual) (0) k/uL Macrocytosis Potassium 6.4 H* (3.5-5.1) mmol/L Chloride (98-107) mmol/L Carbon Dioxide (22-30) mmol/L BUN (9-20) mg/dL Creatinine (0.66-1.25) mg/dL Glucose (74-99) mg/dL POC Glucose (mg/dL) 65 L 120 H (70-110) mg/dL Calcium (8.4-10.2) mg/dL Total Protein (6.3-8.2) g/dL Albumin (3.5-5.0) g/dL Prolactin (2.100-17.700) ng/mL 07/12/22 07/13/22 07/13/22 Range/Units 21:53 00:27 04:50 WBC (3.8-10.6) k/uL RBC (4.30-5.90) m/uL Hgb (13.0-17.5) gm/dL Hct (39.0-53.0) % MCV (80.0-100.0) fL MCHC (31.0-37.0) g/dL RDW (11.5-15.5) % Plt Count (150-450) k/uL Neutrophils # (Manual) (1.3-7.7) k/uL Lymphocytes # (Manual) (1.0-4.8) k/uL Metamyelocytes # (Man) (0) k/uL Myelocytes # (Manual) (0) k/uL Macrocytosis Potassium 5.4 H (3.5-5.1) mmol/L Chloride (98-107) mmol/L Carbon Dioxide (22-30) mmol/L BUN (9-20) mg/dL Creatinine (0.66-1.25) mg/dL Glucose (74-99) mg/dL POC Glucose (mg/dL) 167 H 137 H (70-110) mg/dL Calcium (8.4-10.2) mg/dL Total Protein (6.3-8.2) g/dL Albumin (3.5-5.0) g/dL Prolactin (2.100-17.700) ng/mL 07/13/22 07/13/22 Range/Units 04:59 04:59 WBC 12.4 H (3.8-10.6) k/uL RBC 2.50 L (4.30-5.90) m/uL Hgb 7.6 L (13.0-17.5) gm/dL Hct 26.5 L (39.0-53.0) % MCV 106.1 H D (80.0-100.0) fL MCHC 28.7 L (31.0-37.0) g/dL RDW 21.0 H (11.5-15.5) % Plt Count 529 H (150-450) k/uL Neutrophils # (Manual) 9.10 H (1.3-7.7) k/uL Lymphocytes # (Manual) 0.50 L (1.0-4.8) k/uL Metamyelocytes # (Man) 2.23 H (0) k/uL Myelocytes # (Manual) 0.12 H (0) k/uL Macrocytosis Marked A Potassium 6.1 H* (3.5-5.1) mmol/L Chloride 115 H (98-107) mmol/L Carbon Dioxide 16 L (22-30) mmol/L BUN 57 H (9-20) mg/dL Creatinine 2.35 H (0.66-1.25) mg/dL Glucose 152 H (74-99) mg/dL POC Glucose (mg/dL) (70-110) mg/dL Calcium 5.8 L* (8.4-10.2) mg/dL Total Protein (6.3-8.2) g/dL Albumin (3.5-5.0) g/dL Prolactin (2.100-17.700) ng/mL Assessment and Plan Plan: Acute abdomen with pneumoperitoneum and secondary abdominal pain.. Computed tomography scan of the abdomen revealed a small volume pneumoperitoneum within the upper abdomen. There is an obvious concern for a hollow viscera perforation without defined source identified. There is sequela of volume overload including bilateral pleural effusions, abdominal ascites and diffuse body wall anasarca. That and pneumoperitoneum containing ventral abdominal wall hernia. No evidence for bowel involvement. Stable infrarenal abdominal aortic aneurysm with endograft repair. Redemonstration of diffuse osteoblastic metastatic dise ase within the axial and appendicular skeleton. The patient and the family has declined surgery or surgical exploration. The patient is currently on IV fluids and IV Zosyn. Patient is receiving Dilaudid for pain control. Possible comfort care measures/hospice Acute kidney injury, with progressive worsening renal function Hyperkalemia secondary to above Non-anion gap metabolic acidosis Acute leukocytosis Acute hypocalcemia Acute on chronic anemia History of metastatic prostate cancer Diabetes mellitus, type II Hypothyroidism Hyperlipidemia Plan: Treat this patient's hyperkalemia. The patient is going to receive D50 with insulin and 3 doses of bicarbonate 50 mEq each IV Repeat potassium level Replace calcium and give additional 2 g of calcium gluconate The patient was seen and evaluated General surgery consultation has been obtained. Obviously, without any surgical intervention, the patient has absolutely no chance of recovery. If the family and the patient declines any further surgical expiration, this will be a definite mortality. This will be presented to the patient's family again. The patient and his are declining any surgical intervention, and this is b ased on a discussion that took place yesterday. I'm going to confirm the 's decision. He is a DO NOT RESUSCITATE/DO NOT INTUBATE CODE STATUS Consider hospice/comfort care Time with Patient: Greater than 30
[2022-07-13] MEDS: PIPERACILLIN-TAZOBACTAM 3.375 GM in SODIUM CHLORIDE 0.9% 100 ML IVPB SCH (08:02)
[2022-07-13] MEDS: HEPARIN SODIUM,PORCINE/PF 5,000 UNIT/0.5 ML SYRINGE SQ SCH (08:10)
[2022-07-13] MEDS: PANTOPRAZOLE 40 MG/10 ML VIAL IVP SCH (08:11)
[2022-07-13] MEDS: LEVOTHYROXINE IVP 100 MCG/5 ML VIAL IV SCH (08:11)
--- NOTE | 2022-07-13 08:35 | XR ---
EXAMINATION TYPE: XR chest 1V portable DATE OF EXAM: 07/13/2022 COMPARISON: 01/08/2020 HISTORY: Pleural effusions TECHNIQUE: Single frontal view of the chest is obtained. FINDINGS: There is diffuse skeletal sclerosis correlate for osteoblastic metastases. Heart size is p rominent. Patient is rotated which limits the exam and there are small bilateral pleural effusions wi th bilateral areas of infiltrate. Surgical change involving the vertebral column is seen. There is ad ditional hypertrophic and degenerative changes. Atherosclerotic change aorta. IMPRESSION: 1. Small bilateral pleural effusion correlate for CHF versus pneumonia. 2. Diffuse osteoblastic metastases.
[2022-07-13] MEDS ORDERED: FUROSEMIDE 10 MG/ML 10 ML VIAL IV STA (09:04)
--- NOTE | 2022-07-13 09:32 | P.NPCON ---
History of Present Illness - Reason for Consult acute renal failure, hyperkalemia - History of Present Illness Reason for consultation: Acute kidney injury and hyperkalemia History of present illness: Except patient is a 82-year-old male seen in renal consultation for acute kidney injury and hyperkalemia. Patient's creatinine on admission was 1.62 and is up to 2.35 today. Patient does have chronic kidney disease stage IIIB with baseline creatinine in the range of 1.3-1.5. Patient has history of prostate cancer with metastatic disease. Patient came to the hospital because of abdominal pain. He was noted to have pneumoperitoneum but was not taken to the operating room per family wishes. Hospice is being considered. No hydronephrosis was noted. Patient is oliguric. He's on low- dose Levophed. He is currently receiving D5 normal saline at 75 mL an hour due to low blood sugars. He is noted to be acidotic with a bicarb level of 16. Potassium this morning was 6.1 for which she did receive IV calcium, IV insulin, nebulized albuterol as well as sodium bicarb IV push. He does have history of diabetes. I don't see any nonsteroidals and his home medication list. Patient's currently resting in bed. He is on a nasal cannula. Quite lethargic. Vital signs are stable. On vasopressor support. General: Resting in bed. HEENT: Head exam is unremarkable. On nasal cannula. LUNGS: No audible rhonchi or wheezes. HEART: Rate and Rhythm are regular. ABDOMEN: Distention noted. Tender to touch. EXTREMITITES: No edema. 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,Hx prostate cancer-42 days radiation;Chronic back pain; Chronic anemia, peptic ulcer disease, CVA in June 2015 and MRI of the brain showed increased signal within the cortex of the right frontal and frontoparietal lobes consistent with infarcts., aortic aneurysm with previous insertion of an aortic stent, carotid artery stenosis, increased lower back pain History of Any Multi-Drug Resistant Organisms: None Reported, MRSA Date of last positivie culture/infection: 2011 MDRO Source:: abdominal incision Past Surgical History: Back Surgery, Bladder Surgery, Cholecystectomy, Hernia Repair, Prostate Surgery Additional Past Surgical History / Comment(s): Pain clinic procedure, Prostatectomy, bladder suspension surgery, and vascular stenting of an aortic aneurysm, hemorrhoidectomy, bilateral cataract surgery, back surgery X4 (5-4-16 LAMINECTOMY),rt carotid,hernia x2 Past Anesthesia/Blood Transfusion Reactions: No Reported Reaction Past Psychological History: No Psychological Hx Reported Additional Psychological History / Comment(s): . Smoking Status: Former smoker Past Alcohol Use History: None Reported Additional Past Alcohol Use History / Comment(s): Pt states he started smoking in 195 and quit in 1987. SMOKED 2 PPD, SMOKED FOR 33 YEARS Past Drug Use History: None Reported - Past Family History Brother(s) Family Medical History: CVA/TIA Son(s) Family Medical History: No Reported History Father Family Medical History: Cancer Additional Family Medical History / Comment(s): BRAIN Mother Family Medical History: Cancer Additional Family Medical History / Comment(s): "BLOOD CANCER" Medications and Allergies Home Medications Medication Instructions Recorded Confirmed Type metFORMIN HCL [Glucophage] 1,000 mg PO AC-SUPPER 10/06/13 07/11/22 History Vitamin B Complex 1 cap PO DAILY 05/02/14 07/11/22 History Cholecalciferol [Vitamin D3 (25 25 mcg PO DAILY 10/13/15 07/11/22 History Mcg = 1000 Iu)] Ubidecarenone [Co Q-10] 100 mg PO DAILY 10/13/15 07/11/22 History Psyllium Husk [Metamucil] 0.4 gm PO TID 03/22/17 07/11/22 History Ascorbic Acid [Vitamin C] 1,000 mg PO DAILY 09/05/18 06/23/22 History Aspirin 325 mg PO DAILY 09/05/18 07/11/22 History Gabapentin [Neurontin] 400 mg PO DIRECTED PRN 03/21/19 07/11/22 History rOPINIRole HCL [Requip] 4 mg PO BID 03/21/19 07/11/22 History Ferrous Sulfate 134mg 134 mg PO DAILY 02/15/21 07/11/22 History Pioglitazone [Actos] 30 mg PO DAILY 02/15/21 07/11/22 History Omeprazole Magnesium [PriLOSEC] 40 mg PO DAILY 02/16/21 07/11/22 History Atorvastatin [Lipitor] 20 mg PO HS 07/11/22 07/11/22 History Cyclobenzaprine [Flexeril] 10 mg PO DAILY PRN 07/11/22 07/11/22 History Indapamide [Lozol] 5 mg PO DAILY 07/11/22 07/11/22 History Levothyroxine Sodium [Synthroid] 50 mcg PO DAILY 07/11/22 07/11/22 History SILVER sulfADIAZINE Cream 1 applic TOPICAL DAILY 07/11/22 07/11/22 History [Silvadene 1% Cream] atenoloL 100 mg PO BID 07/11/22 07/11/22 History Allergies Allergy/AdvReac Type Severity Reaction Status Date / Time No Known Allergies Allergy Verified 07/11/22 22:10 Physical Exam Vitals: Vital Signs Temp Pulse Pulse Resp BP BP BP 07/13/22 09:15 73 10 L 102/52 07/13/22 09:00 72 15 111/66 07/13/22 08:45 71 12 115/57 07/13/22 08:30 72 13 110/82 07/13/22 08:15 71 21 98/46 07/13/22 08:00 69 126/49 07/13/22 07:45 96.9 F L 70 34 H 124/66 07/13/22 07:30 73 20 124/49 07/13/22 07:15 68 11 L 123/66 07/13/22 07:00 75 12 98/51 07/13/22 06:45 75 24 79/68 07/13/22 06:30 97.9 F 74 54 H 118/106 07/13/22 06:15 73 34 H 94/65 07/13/22 06:00 77 38 H 07/13/22 05:45 75 29 H 137/55 07/13/22 05:30 70 33 H 144/49 07/13/22 05:15 71 20 141/72 07/13/22 05:00 86 16 130/50 07/13/22 04:45 69 15 111/51 07/13/22 04:30 80 21 07/13/22 04:15 84 20 116/53 07/13/22 04:00 65 18 120/71 07/13/22 03:45 63 17 85/61 07/13/22 03:30 62 22 111/79 07/13/22 03:15 63 20 93/82 07/13/22 03:00 65 20 125/67 07/13/22 02:45 65 21 110/51 07/13/22 02:30 64 18 122/74 07/13/22 02:15 64 17 122/62 07/13/22 02:00 63 18 100/72 07/13/22 01:45 79 19 110/57 07/13/22 01:30 65 17 119/54 07/13/22 01:15 66 22 110/75 07/13/22 01:00 64 20 120/65 07/13/22 00:45 65 18 129/77 07/13/22 00:30 65 18 07/13/22 00:15 65 20 07/13/22 00:00 97.9 F 67 18 108/38 07/12/22 23:45 60 20 94/66 07/12/22 23:30 69 25 H 112/55 07/12/22 23:15 63 26 H 107/55 07/12/22 23:00 64 23 116/54 07/12/22 22:45 97.6 F 72 22 102/59 07/12/22 22:30 68 20 126/57 07/12/22 22:18 70 07/12/22 22:15 67 23 07/12/22 22:10 72 07/12/22 22:00 80 22 101/57 07/12/22 21:45 75 22 119/75 07/12/22 21:30 73 24 135/28 07/12/22 21:15 71 22 107/68 07/12/22 21:00 63 18 93/45 07/12/22 20:45 58 L 21 121/85 07/12/22 20:30 59 L 22 116/58 07/12/22 20:15 60 20 103/90 07/12/22 20:00 96.1 F L 60 18 122/46 07/12/22 19:45 60 21 130/108 07/12/22 19:30 59 L 130/64 07/12/22 19:15 59 L 122/69 07/12/22 19:00 59 L 23 101/87 07/12/22 18:45 58 L 13 82/64 07/12/22 18:30 59 L 29 H 130/55 07/12/22 18:15 59 L 26 H 127/60 07/12/22 18:00 62 16 128/65 07/12/22 17:45 95.4 F L 61 18 129/64 07/12/22 17:16 64/42 07/12/22 13:22 96.8 F L 63 19 130/78 Pulse Ox 07/13/22 09:15 98 07/13/22 09:00 84 L 07/13/22 08:45 100 07/13/22 08:30 100 07/13/22 08:15 87 L 07/13/22 08:00 99 07/13/22 07:45 97 07/13/22 07:30 91 L 07/13/22 07:15 95 07/13/22 07:00 91 L 07/13/22 06:45 93 L 07/13/22 06:30 87 L 07/13/22 06:15 88 L 07/13/22 06:00 97 07/13/22 05:45 94 L 07/13/22 05:30 100 07/13/22 05:15 99 07/13/22 05:00 100 07/13/22 04:45 100 07/13/22 04:30 89 L 07/13/22 04:15 86 L 07/13/22 04:00 100 07/13/22 03:45 100 07/13/22 03:30 99 07/13/22 03:15 100 07/13/22 03:00 92 L 07/13/22 02:45 95 07/13/22 02:30 100 07/13/22 02:15 100 07/13/22 02:00 100 07/13/22 01:45 81 L 07/13/22 01:30 86 L 07/13/22 01:15 90 L 07/13/22 01:00 98 07/13/22 00:45 100 07/13/22 00:30 85 L 07/13/22 00:15 88 L 07/13/22 00:00 92 L 07/12/22 23:45 96 07/12/22 23:30 98 07/12/22 23:15 99 07/12/22 23:00 99 07/12/22 22:45 97 07/12/22 22:30 95 07/12/22 22:18 05/29/23 22:15 100 07/12/22 22:10 07/12/22 22:00 97 07/12/22 21:45 96 07/12/22 21:30 100 07/12/22 21:15 100 07/12/22 21:00 95 07/12/22 20:45 85 L 07/12/22 20:30 99 07/12/22 20:15 96 07/12/22 20:00 95 07/12/22 19:45 86 L 07/12/22 19:30 100 07/12/22 19:15 100 07/12/22 19:00 96 07/12/22 18:45 92 L 07/12/22 18:30 88 L 07/12/22 18:15 91 L 07/12/22 18:00 95 07/12/22 17:45 07/12/22 17:16 07/12/22 13:22 100 Intake and Output 07/12/22 07/13/22 07/13/22 22:59 06:59 14:59 Intake Total 1650 1198.884 683.063 Output Total 0 Balance 1650 1198.884 683.063 Intake: IV 1650 1170 535 Calcium Gluconate in NaCl 200 1 gm In Saline 1 100ml. bag @ 100 mls/hr IVPB ONCE ONE Rx#:[id number] Dextrose 5%-0.9% NaCl 1, 650 1170 335 000 ml @ 130 mls/hr IV . Q7H42M [facility] Rx#:[id number] Sodium Chloride 0.9% 1, 1000 000 ml @ 999 mls/hr IV . Q1H1M [facility] Rx#:[id number] Intake, IV Titration 28.884 148.063 Amount Norepinephrine 4 mg In 28.884 148.063 Sodium Chloride 0.9% 250 ml @ 0.03 MCG/KG/MIN 11. 924 mls/hr IV .[id number] [facility] Rx#:[id number] Output: Urine 0 Other: Voiding Method External Catheter External Catheter Weight 79.3 kg Results - Lab Results Most recent lab results Calcium 5.8 mg/dL (8.4-10.2) L* 07/13/22 04:59 07/13/22 04:59 07/13/22 04:59 Assessment and Plan Plan: Assessment: 1. Acute kidney injury secondary to ATN secondary to hypotension. Creatinine 2.35 today. Oliguric. 2. Chronic kidney disease stage IIIB with baseline creatinine 1.3-1.5 secondary to diabetic kidney disease. 3. Hyperkalemia secondary to acute kidney injury, acidosis. 4. Metabolic acidosis secondary to acute kidney injury and IV fluids. 5. Pneumoperitoneum. Surgery following. 6. Diabetes mellitus. 7. Shock maintained on Levophed. 8. Hypocalcemia secondary to acute kidney injury. Corrected calcium near 7.6. Plan: Change IV fluids to isotonic bicarbonate drip to be run at 75 mL an hour. 60 mg IV Lasix once now. Repeat potassium level in 2 hours. Awaiting family decision. Comfort measures being considered. Thank you for the consultation. I will continue to follow the patient with you during his hospital stay.
[2022-07-13] MEDS ORDERED: DEXTROSE 5% IN WATER 1,000 ML with SODIUM BICARB (1 MEQ/ML) 150 ML IV SCH (10:00)
[2022-07-13 11:56] LABS: Glucose,Whole Blood 65 mg/dL (70-110)
[2022-07-13] MEDS ORDERED: SODIUM CHLORIDE 0.9% 1,000 ML IV SCH (12:15)
[2022-07-13 12:20] LABS: Potassium 5.5 mmol/L (3.5-5.1)
[2022-07-13 12:23] LABS: Calcium 5.7 mg/dL (8.4-10.2)
--- NOTE | 2022-07-13 14:39 | P.PN ---
Subjective Progress Note Date: 07/13/22 CHIEF COMPLAINT: Pneumoperitoneum HISTORY OF PRESENT ILLNESS: Patient presented with abdominal pain and found to have a pneumoperitoneum on computed tomography scan. Dr. Spivey did discuss surgery with the patient's . Due to patient's core morbidities he is high risk for surgery. Per discussion with the patient's the patient did not wish to undergo any operative repair of his pneumoperitoneum. Patient's is currently a no code. Again the stated today that they did not want proceed with any surgery. Patient is requiring the IV Dilaudid which is helping with controlling his pain. He is being followed by nephrology for the hyperkalemia and acute kidney injury. He is hypotensive requiring pressors. PHYSICAL EXAM: VITAL SIGNS: Reviewed. GENERAL: no distress ABDOMEN: Distended NEUROLOGIC: Lethargic ASSESSMENT: 1. Pneumoperitoneum with abdominal pain PLAN: -Patient seen and evaluated by Dr. Quiros. Patient and his have declined any surgical intervention. -Recommend hospice and comfort care Physician [employer] note has been reviewed by physician. Signing provider agrees with the documented findings, assessment, and plan of care. Objective - Vital Signs Vital signs: Vital Signs Temp 97.9 F 07/13/22 11:15 Pulse 68 07/13/22 12:00 Resp 14 07/13/22 12:00 BP 82/45 07/13/22 12:00 Pulse Ox 94 L 07/13/22 12:00 FiO2 Intake & Output 07/12/22 07/13/22 07/13/22 18:59 06:59 18:59 Intake Total 630 2218.884 947.546 Output Total 400 0 Balance 230 2218.884 947.546 Weight 79.3 kg Intake: IV 630 2190 760 Calcium Gluconate in NaCl 200 1 gm In Saline 1 100ml. bag @ 100 mls/hr IVPB ONCE ONE Rx#:[id number] Dextrose 5% in Water 1, 150 000 ml @ 75 mls/hr IV . [id number] LOS with Sodium Bicarb (1 Meq/ml) 150 ml Rx#:[id number] Dextrose 5%-0.9% NaCl 1, 130 1690 410 000 ml @ 130 mls/hr IV . Q7H42M [facility] Rx#:[id number] Sodium Chloride 0.9% 1, 500 500 000 ml @ 999 mls/hr IV . Q1H1M [facility] Rx#:[id number] Intake, IV Titration 4 187.546 Amount Norepinephrine 4 mg In 187.546 Sodium Chloride 0.9% 250 ml @ 0.03 MCG/KG/MIN 11. 924 mls/hr IV .[id number] [facility] Rx#:[id number] Output: Urine 400 0 Other: Voiding Method External Catheter External Catheter External Catheter - Labs CBC & Chem 7: 07/13/22 04:59 07/13/22 11:28 Labs: Abnormal Lab Results - Last 24 Hours (Table) 07/12/22 07/12/22 07/12/22 Range/Units 08:59 16:10 17:45 WBC (3.8-10.6) k/uL RBC (4.30-5.90) m/uL Hgb (13.0-17.5) gm/dL Hct (39.0-53.0) % MCV (80.0-100.0) fL MCHC (31.0-37.0) g/dL RDW (11.5-15.5) % Plt Count (150-450) k/uL Neutrophils # (Manual) (1.3-7.7) k/uL Lymphocytes # (Manual) (1.0-4.8) k/uL Metamyelocytes # (Man) (0) k/uL Myelocytes # (Manual) (0) k/uL Macrocytosis Potassium (3.5-5.1) mmol/L Chloride (98-107) mmol/L Carbon Dioxide (22-30) mmol/L BUN (9-20) mg/dL Creatinine (0.66-1.25) mg/dL Glucose (74-99) mg/dL POC Glucose (mg/dL) 125 H 65 L (70-110) mg/dL Hemoglobin A1c (0.0-6.0) % Calcium (8.4-10.2) mg/dL Prolactin 1.300 L (2.100-17.700) ng/mL 07/12/22 07/12/22 07/12/22 Range/Units 18:44 19:45 21:53 WBC (3.8-10.6) k/uL RBC (4.30-5.90) m/uL Hgb (13.0-17.5) gm/dL Hct (39.0-53.0) % MCV (80.0-100.0) fL MCHC (31.0-37.0) g/dL RDW (11.5-15.5) % Plt Count (150-450) k/uL Neutrophils # (Manual) (1.3-7.7) k/uL Lymphocytes # (Manual) (1.0-4.8) k/uL Metamyelocytes # (Man) (0) k/uL Myelocytes # (Manual) (0) k/uL Macrocytosis Potassium 6.4 H* (3.5-5.1) mmol/L Chloride (98-107) mmol/L Carbon Dioxide (22-30) mmol/L BUN (9-20) mg/dL Creatinine (0.66-1.25) mg/dL Glucose (74-99) mg/dL POC Glucose (mg/dL) 120 H 167 H (70-110) mg/dL Hemoglobin A1c (0.0-6.0) % Calcium (8.4-10.2) mg/dL Prolactin (2.100-17.700) ng/mL 07/13/22 07/13/22 07/13/22 Range/Units 00:27 04:50 04:59 WBC (3.8-10.6) k/uL RBC (4.30-5.90) m/uL Hgb (13.0-17.5) gm/dL Hct (39.0-53.0) % MCV (80.0-100.0) fL MCHC (31.0-37.0) g/dL RDW (11.5-15.5) % Plt Count (150-450) k/uL Neutrophils # (Manual) (1.3-7.7) k/uL Lymphocytes # (Manual) (1.0-4.8) k/uL Metamyelocytes # (Man) (0) k/uL Myelocytes # (Manual) (0) k/uL Macrocytosis Potassium 5.4 H (3.5-5.1) mmol/L Chloride (98-107) mmol/L Carbon Dioxide (22-30) mmol/L BUN (9-20) mg/dL Creatinine (0.66-1.25) mg/dL Glucose (74-99) mg/dL POC Glucose (mg/dL) 137 H (70-110) mg/dL Hemoglobin A1c 6.1 H (0.0-6.0) % Calcium (8.4-10.2) mg/dL Prolactin (2.100-17.700) ng/mL 07/13/22 07/13/22 07/13/22 Range/Units 04:59 04:59 11:54 WBC 12.4 H (3.8-10.6) k/uL RBC 2.50 L (4.30-5.90) m/uL Hgb 7.6 L (13.0-17.5) gm/dL Hct 26.5 L (39.0-53.0) % MCV 106.1 H D (80.0-100.0) fL MCHC 28.7 L (31.0-37.0) g/dL RDW 21.0 H (11.5-15.5) % Plt Count 529 H (150-450) k/uL Neutrophils # (Manual) 9.10 H (1.3-7.7) k/uL Lymphocytes # (Manual) 0.50 L (1.0-4.8) k/uL Metamyelocytes # (Man) 2.23 H (0) k/uL Myelocytes # (Manual) 0.12 H (0) k/uL Macrocytosis Marked A Potassium 6.1 H* (3.5-5.1) mmol/L Chloride 115 H (98-107) mmol/L Carbon Dioxide 16 L (22-30) mmol/L BUN 57 H (9-20) mg/dL Creatinine 2.35 H (0.66-1.25) mg/dL Glucose 152 H (74-99) mg/dL POC Glucose (mg/dL) 65 L (70-110) mg/dL Hemoglobin A1c (0.0-6.0) % Calcium 5.8 L* (8.4-10.2) mg/dL Prolactin (2.100-17.700) ng/mL
[2022-07-13] MEDS: DRY MOUTH SPRAY 44.3 SPRAY/44.3 ML SPRAY MUCOUS MEM PRN ×2 (14:44→21:47)
[2022-07-13 21:14] VITALS: TEMP 98.4
--- NOTE | 2022-07-13 23:56 | P.PN ---
Subjective This is a pleasant 10 years old male with past medical history of Diabetes Mellitus, GERD/Reflux, Hyperlipidemia, Hypertension, Osteoarthritis (OA), urinary incontinence, Heart disease and concentric left ventricular hypertr ophy,Hx prostate cancer-s/p radiation;Chronic back pain; Chronic anemia, peptic ulcer disease, CVA in June 2015 and MRI of the brain showed increased signal within the cortex of the right frontal and frontoparietal lobes consistent with infarcts., aortic aneurysm with previous insertion of an aortic stent, carotid artery stenosis, Patient was admitted last night for abdominal pain of one-day duration Patient currently is confused and his poor historian. He can tell me his name but he does not know he is in the hospital and he thinks is 1941 and he could not tell the name of the president. i called the ms. mabry at [phone] and discussed the case with her, patient is a known case of prostate cancers with metastasis and his been following up with oncologist Dr. Wilkins, is located in the [facility], he is being followed up with him for a while. As per noticed right some strong pills but he needs to seek. Over the last today is been having abdominal pain, stomach pain is explained by the which got more severe yesterday, his pain has been on and off over the last 3 days, usually he is awake and alert. He is been more confused over the last 2 days. He is not eating much and with no bowel movement for the last 2 days Patient could not provide further information and have any other complaints. As per patient is DO NOT RESUSCITATE/DO NOT INTUBATE Patient is afebrile blood pressure was stable: Currently he is on the low side Labs showing mild anemia with hemoglobin 8.4, rest of CBC is unremarkable patient with no leukocytosis INR is 1.2 Creatinine is elevated 1.6 which is at baseline. Potassium 5.2 which is slightly high. Liver enzymes not elevated lipase normal CT of the abdomen and pelvis: Small volume pneumoperitoneum within the upper abdomen concerning for follow-up visit perforation without definitive source identified. Sequelae of volume overload including bilateral pleural effusions, abdominal ascites and diffuse body wall anasarca. Ventral abdominal wall entry with no evidence of bowel involvement. Stable infrarenal abdominal aortic aneurysm with endograft repair. Demonstration of diffuse osteoblastic metastatic disease. 07/13/2022 Patient is more confused today complaining from severe abdominal pain and tenderness he does not look in much distress but he has guarding on abdominal palpation Distal on the pressors for blood pressure support, blood pressure is improved and this morning was 120/65 However patient has worsened leukocytosis, hemoglobin is stable about 7.6 Patient has worsened creatinine of 2.2.3 and he is anuric Nephrology consult was obtained He was hypoglycemic at 65 and low calcium which is replaced Also she was getting Zosyn and D5 normal saline at 1:30 Eventually family and was at bedside and decided to request hospice care and comfort care, per family request hospice consult was placed which looks appropriate given his very poor prognosis Objective - Vital Signs Vital signs: Vital Signs Temp 96.9 F L 07/13/22 07:45 Pulse 69 07/13/22 10:15 Resp 12 07/13/22 10:15 BP 108/44 07/13/22 10:15 Pulse Ox 97 07/13/22 10:15 FiO2 Intake & Output 07/12/22 07/13/22 07/13/22 18:59 06:59 18:59 Intake Total 630 2218.884 782.176 Output Total 400 0 Balance 230 2218.884 782.176 Weight 79.3 kg Intake: IV 630 2190 610 Calcium Gluconate in NaCl 200 1 gm In Saline 1 100ml. bag @ 100 mls/hr IVPB ONCE ONE Rx#:[id number] Dextrose 5%-0.9% NaCl 1, 130 1690 410 000 ml @ 130 mls/hr IV . Q7H42M [facility] Rx#:[id number] Sodium Chloride 0.9% 1, 500 500 000 ml @ 999 mls/hr IV . Q1H1M [facility] Rx#:[id number] Intake, IV Titration 28.884 172.176 Amount Norepinephrine 4 mg In 28.884 172.176 Sodium Chloride 0.9% 250 ml @ 0.03 MCG/KG/MIN 11. 924 mls/hr IV .[id number] [facility] Rx#:[id number] Output: Urine 400 0 Other: Voiding Method External Catheter External Catheter - Exam -GENERAL: The patient is confused HEENT: Pupils are round and equally reacting to light. EOMI. No scleral icterus. No conjunctival pallor. Normocephalic, atraumatic. No pharyngeal erythema. No thyromegaly. CARDIOVASCULAR: S1 and S2 present. No murmurs, rubs, or gallops. PULMONARY: Chest is clear to auscultation, no wheezing . no crackles. -ABDOMEN: Soft, severe abdominal tenderness with guarding and rebound tenderness, nondistended, normoactive bowel sounds. No palpable organomegaly. MUSCULOSKELETAL: No joint swelling or deformity. EXTREMITIES: No cyanosis, clubbing, or pedal edema. NEUROLOGICAL: Gross neurological examination did not reveal any focal deficits. SKIN: No rashes. no petechiae. - Labs CBC & Chem 7: 07/13/22 04:59 07/13/22 11:28 Labs: Abnormal Lab Results - Last 24 Hours (Table) 07/12/22 07/12/22 07/12/22 Range/Units 08:59 08:59 11:29 WBC (3.8-10.6) k/uL RBC (4.30-5.90) m/uL Hgb (13.0-17.5) gm/dL Hct (39.0-53.0) % MCV (80.0-100.0) fL MCHC (31.0-37.0) g/dL RDW (11.5-15.5) % Plt Count (150-450) k/uL Neutrophils # (Manual) (1.3-7.7) k/uL Lymphocytes # (Manual) 0.14 L (1.0-4.8) k/uL Metamyelocytes # (Man) 0.05 H (0) k/uL Myelocytes # (Manual) 0.05 H (0) k/uL Macrocytosis Potassium (3.5-5.1) mmol/L Chloride (98-107) mmol/L Carbon Dioxide (22-30) mmol/L BUN (9-20) mg/dL Creatinine (0.66-1.25) mg/dL Glucose (74-99) mg/dL POC Glucose (mg/dL) 44 L (70-110) mg/dL Calcium (8.4-10.2) mg/dL Prolactin 1.300 L (2.100-17.700) ng/mL 07/12/22 07/12/22 07/12/22 Range/Units 16:10 17:45 18:44 WBC (3.8-10.6) k/uL RBC (4.30-5.90) m/uL Hgb (13.0-17.5) gm/dL Hct (39.0-53.0) % MCV (80.0-100.0) fL MCHC (31.0-37.0) g/dL RDW (11.5-15.5) % Plt Count (150-450) k/uL Neutrophils # (Manual) (1.3-7.7) k/uL Lymphocytes # (Manual) (1.0-4.8) k/uL Metamyelocytes # (Man) (0) k/uL Myelocytes # (Manual) (0) k/uL Macrocytosis Potassium 6.4 H* (3.5-5.1) mmol/L Chloride (98-107) mmol/L Carbon Dioxide (22-30) mmol/L BUN (9-20) mg/dL Creatinine (0.66-1.25) mg/dL Glucose (74-99) mg/dL POC Glucose (mg/dL) 125 H 65 L (70-110) mg/dL Calcium (8.4-10.2) mg/dL Prolactin (2.100-17.700) ng/mL 07/12/22 07/12/22 07/13/22 Range/Units 19:45 21:53 00:27 WBC (3.8-10.6) k/uL RBC (4.30-5.90) m/uL Hgb (13.0-17.5) gm/dL Hct (39.0-53.0) % MCV (80.0-100.0) fL MCHC (31.0-37.0) g/dL RDW (11.5-15.5) % Plt Count (150-450) k/uL Neutrophils # (Manual) (1.3-7.7) k/uL Lymphocytes # (Manual) (1.0-4.8) k/uL Metamyelocytes # (Man) (0) k/uL Myelocytes # (Manual) (0) k/uL Macrocytosis Potassium 5.4 H (3.5-5.1) mmol/L Chloride (98-107) mmol/L Carbon Dioxide (22-30) mmol/L BUN (9-20) mg/dL Creatinine (0.66-1.25) mg/dL Glucose (74-99) mg/dL POC Glucose (mg/dL) 120 H 167 H (70-110) mg/dL Calcium (8.4-10.2) mg/dL Prolactin (2.100-17.700) ng/mL 07/13/22 07/13/22 07/13/22 Range/Units 04:50 04:59 04:59 WBC 12.4 H (3.8-10.6) k/uL RBC 2.50 L (4.30-5.90) m/uL Hgb 7.6 L (13.0-17.5) gm/dL Hct 26.5 L (39.0-53.0) % MCV 106.1 H D (80.0-100.0) fL MCHC 28.7 L (31.0-37.0) g/dL RDW 21.0 H (11.5-15.5) % Plt Count 529 H (150-450) k/uL Neutrophils # (Manual) 9.10 H (1.3-7.7) k/uL Lymphocytes # (Manual) 0.50 L (1.0-4.8) k/uL Metamyelocytes # (Man) 2.23 H (0) k/uL Myelocytes # (Manual) 0.12 H (0) k/uL Macrocytosis Marked A Potassium 6.1 H* (3.5-5.1) mmol/L Chloride 115 H (98-107) mmol/L Carbon Dioxide 16 L (22-30) mmol/L BUN 57 H (9-20) mg/dL Creatinine 2.35 H (0.66-1.25) mg/dL Glucose 152 H (74-99) mg/dL POC Glucose (mg/dL) 137 H (70-110) mg/dL Calcium 5.8 L* (8.4-10.2) mg/dL Prolactin (2.100-17.700) ng/mL Assessment and Plan Assessment: Acute Pneumoperitoneum mostly secondary to perforated viscus Hypotension secondary to above Anuric acute kidney injury and renal failure with hyperkalemia toxic metabolic encephalopathy secondary to above prostate cancer status post radiotherapy 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
[2022-07-13 23:58] LABS: Glucose,Whole Blood 42 mg/dL (70-110)
[2022-07-14 02:11] VITALS: BP 102/43; PULSE 35; RESP 0
== END 2022-07-14 03:00 | disposition expired | DRG 393 ==
LOC: EC 19:12 → 4SSUR 21:50 → 2SICU 07-12 17:31
PROVIDERS: ADMIT Internal Medicine; ATTEND Internal Medicine
PROC: 3E033XZ Introduction of Vasopressor into Peripheral Vein, Percutaneous Approach (ICD-10-PCS; principal; 2022-07-11)
DX: K66.8 Other specified disorders of peritoneum (principal); G92.8 Other toxic encephalopathy; N17.0 Acute kidney failure with tubular necrosis; K63.1 Perforation of intestine (nontraumatic); C79.51 Secondary malignant neoplasm of bone; D62 Acute posthemorrhagic anemia; E87.20 Acidosis, unspecified; J90 Pleural effusion, not elsewhere classified; R18.8 Other ascites; R57.8 Other shock; N18.32 Chronic kidney disease, stage 3b; Z66 Do not resuscitate; Z51.5 Encounter for palliative care; I95.9 Hypotension, unspecified; K21.9 Gastro-esophageal reflux disease without esophagitis; D72.829 Elevated white blood cell count, unspecified; E03.9 Hypothyroidism, unspecified; E87.5 Hyperkalemia; E11.22 Type 2 diabetes mellitus with diabetic chronic kidney disease; M19.90 Unspecified osteoarthritis, unspecified site; G89.29 Other chronic pain; M54.9 Dorsalgia, unspecified; C61 Malignant neoplasm of prostate; I11.9 Hypertensive heart disease without heart failure; Z92.3 Personal history of irradiation; Z87.11 Personal history of peptic ulcer disease; I65.29 Occlusion and stenosis of unspecified carotid artery; E83.51 Hypocalcemia; E11.649 Type 2 diabetes mellitus with hypoglycemia without coma; E78.5 Hyperlipidemia, unspecified; E87.70 Fluid overload, unspecified; Z87.891 Personal history of nicotine dependence; Z87.19 Personal history of other diseases of the digestive system; K43.9 Ventral hernia without obstruction or gangrene; Z79.82 Long term (current) use of aspirin; Z79.84 Long term (current) use of oral hypoglycemic drugs; Z79.890 Hormone replacement therapy; Z79.899 Other long term (current) drug therapy; Z86.73 Personal history of transient ischemic attack (TIA), and cerebral infarction without residual deficits; Z86.14 Personal history of Methicillin resistant Staphylococcus aureus infection
CPT/HCPCS: 36415; 71045; 74176; 80048; 80053; 80076; 82310; 83036; 83605; 83690; 84132; 84146; 85025; 85610; 85730; 87040; 94640; 96361; 96365; 96375; 96376; 99285